=== PATIENT | female | born 1980 | race Hispanic/Latino ===

== ENCOUNTER 2016-08-29 17:49 | Emergency (ER) | payer OTHER ==
[~2016-08-29] VITALS: Ht 160 cm; Wt 89.8 kg
[~2016-08-29 17:49] MED LIST: A/B OTIC 54 MG/15 ML OTIC; AFRIN PUMPMIST15 ML NASB; AMOXICILLIN500 M3 PO; AMOXICILLIN875 M1 PO; AMOXIL 875 MG875 MG PO; AMOXIL500 MG PO; ANTIVERT 25MG #1 PAC PO; AUGMENTIN 875 M1 TAB PO; AUGMENTIN 875875 MG PO; BACTRIM DS TAB1 EACH PO; BUTRANS10 MCG/HR TOP; BUTRANS15 MCG/HR; CEFPODOXIME PR200 M2 PO; CETIRIZINE HCL10 M2 PO; CLONAZEPAM0.5 MG PO; COUMADIN 10 MG10 MG PO; COUMADIN 5 MG TA5 MG PO; COUMADIN 7.5 M7.5 MG PO; CYCLOBENZAPRINE10 M1 PO; CYCLOBENZAPRINE5 M1 PO; CYCLOBENZAPRINE5 M2 PO; CYMBALTA30 M1 PO; CYMBALTA60 MG PO; DULOXETINE HCL30 MG PO; DULOXETINE HCL60 MG PO; ELIQUIS2.5 M1; ELIQUIS5 MG PO; ENDOCET 325 MG-1 TA1 PO; ESCITALOPRAM20 MG PO; FERRALET 90 TA1 EACH PO; FLEXERIL10 MG PO; FLOMAX(MONOGRA0.4 MG PO; FLONASE120 SPRAY/ NAS; FLONASE120 SPRAY/ NASB; FUROSEMIDE20 M1 PO; GABAPENTIN100 M2 PO; IBUPROFEN800 M1 PO; JANUMET 1000 MG1 TAB PO; JANUVIA 50MG50 MG PO; JANUVIA100 M1 PO; JANUVIA25 M1 PO; KETOROLAC TROME10 M1 PO; LANTUS SOL100 UNIT/1 SC; LEVAQUIN500 MG PO; LEVAQUIN750 M1 PO; LEVAQUIN750 MG PO; LISINOPRIL10 M1 PO; LISINOPRIL5 M1 PO; LOMOTIL 0.025 M1 TAB PO; LORAZEPAM0.5 M1 PO; LOSARTAN POTAS100 MG PO; LOSARTAN POTASS50 MG PO; LOVENOX 10100 MG/1 M SC; LOVENOX100 MG/1 M SC; LOVENOX150 MG/1 M SC; MELOXICAM7.5 M1 PO; MELOXICAM7.5 MG PO; MONTELUKAST SOD10 M1 PO; NASONEX0.05 MG/Ac INH; NASONEX0.05 MG/Ac NAS; NASONEX17 GM NASB; NATURAL IRON65 MG PO; NEURONTIN100 MG PO; NEURONTIN300 M1 PO; NOVOLOG FL100 UNIT/1 SC; NYSTATIN AND TR1 CR1 TOP; OXYCODONE HCL5 M1 PO; OXYCODONE5 MG PO; OXYCONTIN10 M1 PO; PERCOCET 325 MG1 TA2 PO; PERCOCET 5-3251 EACH PO; PREDNISONE 20MG20 MG PO; PROAIR HFA0.09 MG/Ac INH; PROAIR HFA8.5 GM INH; PROTONIX 40MG T40 MG PO; RANITIDINE HYD150 MG PO; SERTRALINE HYD100 MG PO; SERTRALINE HYDR50 MG PO; SIMVASTATIN20 MG PO; SIMVASTATIN40 MG PO; SIMVASTATIN5 M2 PO; SYMBICORT 160/41 PUF INH; TESSALON PERLE100 MG PO; TOUJEO SOL300 UNIT/1 SC; TRAMADOL50 MG PO; TRAZODONE HCL100 M1 PO; TRAZODONE HCL150 M1 PO; TRAZODONE HCL50 M1 PO; TRAZODONE50 MG PO; TYLENOL #31 TAB PO; ULTRAM50 M1 PO; VICODIN 300 MG-1 TAB PO; VICODIN5-300 PO; VITAMIN D250000 UNIT PO; WARFARIN SODIUM5 MG PO; ZOFRAN ODT4 MG PO; ZOFRAN ODT4 MG SL; ZOFRAN4 M1 PO; ZOFRAN4 M1 SL; ZOFRAN4 MG PO; ZOLOFT 100 MG100 MG PO; ZOLPIDEM TARTRAT5 M1 PO; [UNRECOGNIZED DRUG - OTHER] PO
--- NOTE | 2016-08-29 20:42 | ED MVC/FALL/TRAUMA COMPLAINT ---
History of Present Illness General Chief Complaint: Fall Stated Complaint: FELL DOWN 15 STAIRS. LOW BACK PAIN Source: patient Exam Limitations: no limitations Vital Signs & Intake/Output Vital Signs & Intake/Output Vital Signs Date Time Temp Pulse Resp B/P Pulse O2 O2 Flow FiO2 Ox Delivery Rate 08/29 2207 96.8 78 18 128/90 100 Nasal 2.0L Cannula 08/29 2105 100 Nasal 2.0L Cannula 08/29 1754 97.0 97 18 139/92 97 Nasal 2.0L Cannula ED Intake and Output 08/30 0000 08/29 1200 Intake Total Output Total Balance Patient 198 lb Weight Allergies Coded Allergies: adhesive (Mild, RASH 02/12/16) latex (UNKNOWN 02/12/16) Reconcile Medications Albuterol Sulfate (Proair Hfa) 0.09 MG/Actuation LEOBARDO 2 PUFF INH PRN ASTHMA ( Reported) Duloxetine HCl 60 MG CAPSULE.DR 1 CAP PO DAILY MENTAL HEALTH (Reported) Enoxaparin Sodium (Lovenox) 150 MG/ML SYRINGE 150 MG SC DAILY BLOOD THINNER ( Reported) Gabapentin (Neurontin) 300 MG CAPSULE 1 CAP PO TID NEUROPATHY (Reported) Insulin Aspart, Recombinant (Novolog Flexpen) 100 UNIT/1 ML INSULN.PEN DIABETES (Reported) Insulin Glargine,Hum.rec.anlog (Toujeo Solostar) 300 UNIT/ML (1.5 ML) INSULN.PEN 40 UNITS SC QHS DM (Reported) Lisinopril 5 MG TABLET 1 TAB PO DAILY HTN (Reported) Simvastatin (Simvastatin*) 40 MG TABLET 1 TAB PO QPM HLP (Reported) Simvastatin (Simvastatin*) 5 MG TABLET 1 TAB PO DAILY CHOLESTEROL (Reported) Triage Note: PRESENTS TO ED FOR EVALUATION OF LOWER BACK PAIN S/P FALLING ON STAIRS. DENIED HITTIN HER HEAD OR LOC. SHE REPORTED THE HAVE "SLIPPED" Triage Nurses Notes Reviewed? yes : No Patient currently breastfeeds: No HPI: This patient is a 36-year-old female the past medical history including lupus who presented to the emergency department today for evaluation of lower back pain status post fall. The patient reported that she fell down approximately 15 stairs today. She reported that she slipped and slid down on her back. She denied hitting her head or any syncope. She denied any precipitating factors such as nausea, dizziness, lightheadedness, chest pain, difficulty breathing, or any other precipitating symptoms. The patient reported that she is having 8 out of 10 lower back pain primarily in the center of her lower back. She reported that it seems to shoot down to both of her thighs. The pain is a constant and worse with movement. No palliative factors. She did not take any medication for the pain prior to arrival in the emergency department. (ABDIAZIZ FONG PA-C) Past History Travel History [facility]ed [facility] past 21 day No Medical History Any Pertinent Medical History? see below for history Neurological: migraine EENT: allergies, sinusitis Cardiovascular: hypertension, hyperlipidemia Respiratory: asthma, pulmonary embolism (recurrent. 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 FATHER (hypertension, diabetes mellitus). Hx Contributory? No (ABDIAZIZ FONG PA-C) Review of Systems Review of Systems Constitutional: Reports: no symptoms. Eyes: Reports: no symptoms. Ears, Nose, Throat, Mouth: Reports: no symptoms. Respiratory: Reports: no symptoms. Cardiovascular: Reports: no symptoms. Gastrointestinal/Abdominal: Reports: no symptoms. Genitourinary: Reports: no symptoms. Musculoskeletal: Reports: see HPI. Skin: Reports: no symptoms. Neurological/Psychological: Reports: no symptoms. All Other Systems: Reviewed and Negative (ABDIAZIZ FONG PA-C) Physical Exam Physical Exam General Appearance: well developed/nourished, no apparent distress, alert, awake Comments: Well-developed well-nourished person in no acute distress HEENT: Normal EENT exam, head normocephalic/atraumatic, no tenderness to palpation of scalp, no bony deformity/step-off of the skull PERRLA bilaterally Neck: Supple and no midline tenderness Back: Antalgic gait. Tenderness to palpation at the midline of the lumbar spine. Bilateral lumbar paraspinal musculature tenderness to palpation with muscular spasm noted. Negative straight leg raise bilaterally Respiratory: No respiratory distress. Speaking in full sentences Extremity: Normal and equal pulses. Neuro: Alert oriented x3, cranial nerves II through XII grossly intact. Skin: No appreciable rash on exposed skin, skin is warm and dry. Psych: Mood and affect is normal Core Measures ACS in differential dx? No Severe Sepsis Present: No Septic Shock Present: No (HETAL TAYLOR,ABDIAZIZ) Progress Differential Diagnosis: aoritic dissection, abd injury, C/T/L spine injury, ext injury, ICH, pelvis injury, pnemothorax, spinal cord injury Plan of Care: Orders Procedure Date/time Status URINE 08/29 2030 Complete Laboratory Tests 08/29/162129: Urine Test NEGATIVE Diagnostic Imaging: Viewed by Me: CT Scan. Discussed w/RAD: CT Scan. Radiology Impression: PATIENT: JAIMIE CHEN PRESENT AGE: 36 PATIENT ACCOUNT NO: [id number] : 81 LOCATION: [facility] ORDERING PHYSICIAN: ABDIAZIZ FONG PA-C SERVICE DATE: 08/29/16 EXAM TYPE: CAT - CT LUMB SPINE WO IV CONTRAST EXAMINATION: CT LUMBAR SPINE WITHOUT CONTRAST CLINICAL INFORMATION: Fall down 15 stairs. Evaluate for injury. COMPARISON: Lumbar spine radiographs 05/03/2016. TECHNIQUE: Helical non-contrast CT images were obtained through the lumbar spine and 1.25 and 2.5 mm axial reconstructions were reviewed along with sagittal and coronal MPRs. DLP: 971.11 mGy-cm FINDINGS: There is anatomic alignment and position of the vertebral bodies and posterior elements of the lumbar spine. Vertebral body heights are preserved. There is no acute fracture. Intervertebral disc spaces are maintained at all levels. Grossly there is no evidence of canal or neuroforaminal compromise. Limited visualization of the retroperitoneal structures demonstrates 2 tandemly placed inferior vena cava filters. There are numerous nonobstructive calculi within the calyces of the right kidney the largest of which measures approximately 0.4 cm in diameter. No evidence of hydroureteronephrosis. Psoas and paraspinal muscle groups are symmetric. IMPRESSION: Unremarkable lumbar spine CT scan with no evidence of acute fracture or subluxation. There are 2 tandemly placed filters within the inferior vena cava and a few nonobstructive calculi within the calyces of the right kidney. DICTATED BY: SPEEDY ROMERO MD DATE/TIME DICTATED:08/29/162143 INFORMATION SECURITY:BRAIN DATE/TIME TRANSCRIBED:08/29/162143 CONFIDENTIAL, DO NOT COPY WITHOUT APPROPRIATE AUTHORIZATION. <Electronically signed in Other Vendor System> SIGNED BY: SPEEDY ROMERO MD 08/29/162152 (ABDIAZIZ FONG PA-C) Departure Departure Disposition: HOME OR SELF CARE Condition: Stable Clinical Impression Primary Impression: Fall Qualifiers: Encounter type: initial encounter Qualified Code: W19.XXXA - Unspecified fall, initial encounter Referrals: EMETERIO JEFFRIES (PCP/Family) Additional Instructions: Take medication as prescribed. Please follow-up with your primary care physician. Gentle stretching. Rest. Apply ice or heat the affected area. Return for any worsening symptoms or concerns. Departure Forms: Customer Survey General Discharge Information (ABDIAZIZ FONG PA-C) PA/TRAFFIC CONTROL SUPERVISOR Co-Sign Statement Statement: ED Attending supervision documentation- [] I saw and evaluated the patient. I have also reviewed all the pertinent lab results and diagnostic results. I agree with the findings and the plan of care as documented in the PA's/TRAFFIC CONTROL SUPERVISOR's documentation. [X] I have reviewed the ED Record and agree with the PA's/TRAFFIC CONTROL SUPERVISOR's documentation. [] Additions or exceptions (if any) to the PAs/TRAFFIC CONTROL SUPERVISOR's note and plan are summarized below: [] (JESU WALLER,LESVAI Roland) physician. Gentle stretching. Rest. Apply ice or heat the affected area. Return for any worsening symptoms or concerns. Departure Forms: Customer Survey General Discharge Information Prescriptions: Current Visit Scripts Cyclobenzaprine HCl 1 TAB PO TIDPRN PRN MUSCLE SPAMS #12 TAB Naproxen (Naprosyn) 1 TAB PO BID PRN PAIN AND INFLAMMATION #20 TAB (ABDIAZIZ FONG PA-C) PA/TRAFFIC CONTROL SUPERVISOR Co-Sign Statement Statement: ED Attending supervision documentation- [] I saw and evaluated the patient. I have also reviewed all the pertinent lab results and diagnostic results. I agree with the findings and the plan of care as documented in the PA's/TRAFFIC CONTROL SUPERVISOR's documentation. [X] I have reviewed the ED Record and agree with the PA's/TRAFFIC CONTROL SUPERVISOR's documentation. [] Additions or exceptions (if any) to the PAs/TRAFFIC CONTROL SUPERVISOR's note and plan are summarized below: [] (JESU WALLER,LESVIA Roland)
--- NOTE | 2016-08-29 21:53 | CT SCAN REPORT ---
EXAMINATION: CT LUMBAR SPINE WITHOUT CONTRAST CLINICAL INFORMATION: Fall down 15 stairs. Evaluate for injury. COMPARISON: Lumbar spine radiographs 05/03/2016. TECHNIQUE: Helical non-contrast CT images were obtained through the lumbar spine and 1.25 and 2.5 mm axial reconstructions were reviewed along with sagittal and coronal MPRs. DLP: 971.11 mGy-cm FINDINGS: There is anatomic alignment and position of the vertebral bodies and posterior elements of the lumbar spine. Vertebral body heights are preserved. There is no acute fracture. Intervertebral disc spaces are maintained at all levels. Grossly there is no evidence of canal or neuroforaminal compromise. Limited visualization of the retroperitoneal structures demonstrates 2 tandemly placed inferior vena cava filters. There are numerous nonobstructive calculi within the calyces of the right kidney the largest of which measures approximately 0.4 cm in diameter. No evidence of hydroureteronephrosis. Psoas and paraspinal muscle groups are symmetric. IMPRESSION: Unremarkable lumbar spine CT scan with no evidence of acute fracture or subluxation. There are 2 tandemly placed filters within the inferior vena cava and a few nonobstructive calculi within the calyces of the right kidney.
[2016-08-29] MEDS ORDERED: CYCLOBENZAPRINE5 M2 PO (22:01)
[2016-08-29] MEDS ORDERED: NAPROSYN500 M1 PO (22:01)
[2016-08-29 22:07] VITALS: BP 128/90
== END 2016-08-29 22:08 ==
LOC: ERH 17:49
DX: M54.5 Low back pain (principal); W10.9XXA Fall (on) (from) unspecified stairs and steps, initial encounter
CPT/HCPCS: 81025; 96372; J1885

== ENCOUNTER 2016-09-02 01:31 | Inpatient (IN) | payer OTHER ==
[~2016-09-02] VITALS: Ht 160 cm; Wt 89.8 kg
[~2016-09-02 01:31] MED LIST changes: +NAPROSYN500 M1 PO
--- NOTE | 2016-09-02 01:43 | NUR ---
PT BIBA FROM HOME C/O LEFT FLANK PAIN THAT RADIATES TO LEFT LEG AND CHILLS SINCE YESTERDAY. PT DENIES URINARY SYMPTOMS, FEVER, CP, SOB.
--- NOTE | 2016-09-02 02:00 | NUR ---
LEFT UPPER LEG MORE SWOLLEN THEN RIGHT. LEG COOL TO TOUCH. POSITIVE DP PULSE
[2016-09-02 02:52] LABS: ABSOLUTE BASOPHIL COUNT 0.1 /CUMM (0.0-0.2); ABSOLUTE EOSINOPHIL COUNT 0.1 /CUMM (0.0-0.7); ABSOLUTE GRANULOCYTE CT 16.2 /CUMM (1.4-6.5); ABSOLUTE LYMPH COUNT 3.2 /CUMM (1.2-3.4); ABSOLUTE MONOCYTE COUNT 1.3 /CUMM (0.10-0.60); BASOPHIL % 0.3 % (0.0-2.0); EOSINOPHIL % 0.5 % (0-5); GRANULOCYTE % 77.8 % (42.2-75.2); HEMATOCRIT 31.2 % (37-47); MEAN CORPUSCULAR HGB 26.2 PG (27.0-31.0); MEAN CORPUSCULAR HGB CONC 31.3 G/DL (33.0-37.0); MEAN CORPUSCULAR VOLUME 83.9 FL (81.0-99.0); PLATELET COUNT 285 /CUMM (130-400); RBC DISTRIBUTION WIDTH 16.9 % (11.5-14.5); RED BLOOD CELL CT 3.72 /CUMM (4.20-5.40); WHITE BLOOD CELL COUNT 20.8 /CUMM (4.8-10.8)
--- NOTE | 2016-09-02 03:03 | NUR ---
PT C/O 05/02 PAIN. PT MEDICATED WITH MORPHINE PER ORDER
[2016-09-02 03:13] LABS: PT 11.5 SEC (9.4-12.5)
--- NOTE | 2016-09-02 03:13 | ED GENERAL ADULT ---
History of Present Illness General Chief Complaint: General Adult Stated Complaint: BIBA HYPERGLYCEMIA Source: patient, family, old records, EMS, Epic Exam Limitations: no limitations Vital Signs & Intake/Output Vital Signs & Intake/Output Vital Signs Date Time Temp Pulse Resp B/P Pulse O2 O2 Flow FiO2 Ox Delivery Rate 09/02 0324 97.6 90 18 124/70 98 Nasal Cannula 09/02 0139 96.3 75 18 115/63 97 Nasal 2.0L Cannula Allergies Coded Allergies: adhesive (Mild, RASH 02/12/16) latex (UNKNOWN 02/12/16) Reconcile Medications Albuterol Sulfate (Proair Hfa) 0.09 MG/Actuation LEOBARDO 2 PUFF INH PRN ASTHMA ( Reported) Budesonide/Formoterol Fumara (Symbicort 160-4.5 Mcg Inhaler) 160 MCG/4.5 MCG PUF 2 PUF INH BID ASTHMA (Reported) Cetirizine HCl 10 MG TABLET 1 TAB PO DAILY ALLERGIES (Reported) Cyclobenzaprine HCl 5 MG TABLET 1 TAB PO TIDPRN PRN MUSCLE SPAMS Duloxetine HCl 60 MG CAPSULE.DR 1 CAP PO DAILY MENTAL HEALTH (Reported) Duloxetine HCl 30 MG CAPSULE.DR 1 CAP PO DAILY MENTAL HEALTH (Reported) Enoxaparin Sodium (Lovenox) 150 MG/ML SYRINGE 150 MG SC DAILY BLOOD THINNER ( Reported) Ergocalciferol (Vitamin D2) (Vitamin D2) 50,000 UNIT CAPSULE 1 CAP PO QMON SUPPLEMENT (Reported) Furosemide 20 MG TABLET 1 TAB PO DAILY PRN DIURETIC (Reported) Gabapentin (Neurontin) 300 MG CAPSULE 1 CAP PO TID NEUROPATHY (Reported) Insulin Aspart, Recombinant (Novolog Flexpen) 100 UNIT/1 ML INSULN.PEN DIABETES (Reported) Insulin Glargine,Hum.rec.anlog (Toujeo Solostar) 300 UNIT/ML (1.5 ML) INSULN.PEN 40 UNITS SC QHS DM (Reported) Iron Carb,Gl/FA/B12/C/Docusate (Ferralet 90 Tablet) 1 EACH TABLET 1 TAB PO BID SUPPLEMENT (Reported) Lisinopril 5 MG TABLET 1 TAB PO DAILY HTN (Reported) Lorazepam 0.5 MG TABLET 1 TAB PO BID PRN ANXIETY (Reported) Meloxicam 7.5 MG TABLET 1 TAB PO DAILY PAIN/INFLAMMATION (Reported) Montelukast Sodium 10 MG TABLET 1 TAB PO QHS ALLERGIES (Reported) Naproxen (Naprosyn) 500 MG TABLET 1 TAB PO BID PRN PAIN AND INFLAMMATION Oxycodone HCl 5 MG TABLET 1 TAB PO TID PRN SEVERE PAIN (Reported) Simvastatin (Simvastatin*) 5 MG TABLET 1 TAB PO DAILY CHOLESTEROL (Reported) Sitagliptin Phosphate (Januvia) 100 MG TABLET 1 TAB PO DAILY DIABETES ( Reported) Tramadol HCl (Ultram) 50 MG TABLET 1-2 TAB PO Q6PRN PRN severe pain Trazodone HCl 50 MG TABLET 3 TAB PO QPM PRN SLEEP (Reported) Core Measure Meds [facility]ospital [facility] Triage Note: PT BIBA FROM HOME C/O LEFT FLANK PAIN THAT RADIATES TO LEFT LEG AND CHILLS SINCE YESTERDAY. PT DENIES URINARY SYMPTOMS, FEVER, CP, SOB. Triage Nurses Notes Reviewed? yes Onset: several days Duration: day(s):, constant, continues in ED, getting worse Timing: recent history Injury Environment: home Severity: severe Modifying Factors: Worsens With: movement. Associated Symptoms: back pain LMP (ages 10-50): unknown : No Patient currently breastfeeds: No HPI: 2 months prior to admission patient had recurrent pulmonary embolism. 4 days prior to admission patient slipped and fell down the stairs seen in the emergency department CT demonstrated no apparent injury. She then developed increasing swelling and pain of her left lower extremity. She also notes her blood sugars been running high. She denies fever chills nausea vomiting diarrhea abdominal pain chest pain shortness of breath headache dysuria bleeding. Past History Travel History Traveled to [place] past 21 day No Medical History Any Pertinent Medical History? see below for history Neurological: migraine EENT: allergies, sinusitis Cardiovascular: hypertension, hyperlipidemia Respiratory: asthma, pulmonary embolism (recurrent. 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 FATHER (hypertension, diabetes mellitus). Hx Contributory? No Review of Systems Review of Systems Constitutional: Reports: see HPI, weakness. EENTM: Reports: no symptoms. Respiratory: Reports: no symptoms. Cardiovascular: Reports: no symptoms. GI: Reports: no symptoms. Genitourinary: Reports: no symptoms. Musculoskeletal: Reports: see HPI, joint pain, joint swelling. Skin: Reports: no symptoms. Neurological/Psychological: Reports: no symptoms. Hematologic/Endocrine: Reports: no symptoms. Immunologic/Allergic: Reports: no symptoms. All Other Systems: Reviewed and Negative Physical Exam Physical Exam General Appearance: well developed/nourished, alert, awake, anxious Head: atraumatic, normal appearance Eyes: Bilateral: normal appearance, PERRL, EOMI. Ears, Nose, Throat: normal pharynx, normal ENT inspection Neck: normal inspection, supple, full range of motion Respiratory: normal breath sounds, chest non-tender, no respiratory distress, quiet respiration, lungs clear Cardiovascular: regular rate/rhythm, normal peripheral pulses, norml femoral pulses equa Peripheral Pulses: 4+ carotid (R), 4+ carotid (L), 1+ dorsalis pedis (R), 1+ dorsalis pedis (L) Gastrointestinal: normal bowel sounds, soft, non-tender, no organomegaly Back: normal inspection, normal range of motion Extremities: calf tenderness, limited range of motion, tenderness, left lower extremity with pallor and taut skin Neurologic/Psych: no motor/sensory deficits, awake, alert, oriented x 3, normal mood/affect, 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 Skin: intact, pallor (LLE) Lymphatic: no anterior cervical candace Core Measures ACS in differential dx? No CVA/TIA Diagnosis: No Severe Sepsis Present: No Septic Shock Present: No Progress Differential Diagnoses I considered the following diagnoses in my evaluation of the patient: DVT hyperglycemia hyperosmolar state Plan of Care: Orders Procedure Date/time Status Consistent Carbohydrate 2 09/02 B Active CBC WITHOUT DIFFERENTIAL 09/02 599 Active BASIC ELECTROLYTES PLUS BUN&CR 09/[address] LOWER EXT W IV CONTRAST 02/10 0425 Active Patient Data 09/02 410 Active Pathway - chart 09/02 357 Active House Staff 09/02 357 Active Code Status 09/02 357 Active Patient Data 09/02 333 Active EKG 09/02 331 Active Patient Data 09/02 327 Active Patient Data 09/02 324 Active Add-on Test (ER Only) 09/02 323 Active PARTIAL THROMBOPLASTIN TIME 09/02 227 Complete OXYGEN SETUP (GEN) 09/02 220 Active Saline Lock 09/02 220 Active Admit to inpatient 09/02 220 Active Vital Signs 09/02 220 Active Activity/Ambulation 09/02 220 Active Code Status 09/02 220 Complete PROTHROMBIN TIME 09/02 020 Complete MAGNESIUM 09/02 020 Complete D-DIMER 09/02 208 Complete COMPREHENSIVE METABOLIC PANEL 09/02 208 Complete CBC WITHOUT DIFFERENTIAL 09/02 208 Complete ACETONE 09/02 208 Complete US-EXT BILAT VENOUS DOPPLER 09/02 UNK Active VTE Mechanical Prophylaxis 09/02 UNK Active Current Medications Sig/Omero Start time Last Medication Dose Stop Time Status Admin Atorvastatin Calcium 5 MG 1700 09/02 1700 UNVr (Lipitor) Budesonide/ 2 PUF BID 09/02 1000 UNVr Formoterol Fumarate (Symbicort) Gabapentin 300 MG TID 09/02 1000 UNVr (Neurontin) Lisinopril 5 MG DAILY 09/02 1000 UNVr (Prinivil) Albuterol Sulfate 2 PUF Q4 PRN 09/02 414 UNVr (Ventolin) Cyclobenzaprine HCl 5 MG TIDPRN PRN 09/02 414 UNVr (Flexeril 5MG Tab) Furosemide 20 MG DAILY PRN 09/02 414 UNVr (Lasix) Lorazepam 0.5 MG BID PRN 09/02 414 UNVr (Ativan) 09/09 413 Montelukast Sodium 10 MG .[QHS] 09/02 414 UNVr (Singulair) Non-Formulary 0 SEE ADMIN CRITERIA 09/02 414 UNVr Medication (NON FORMULARY) Oxycodone HCl 5 MG TID PRN 09/02 414 UNVr (Roxicodone) Tramadol HCl See Dose Q6PRN PRN 09/02 414 UNVr (Ultram) Insts (1) Trazodone HCl 150 MG QPM PRN 09/02 414 UNVr (Desyrel) Dose Instructions: (1)Tramadol HCl (Ultram): 1-2 TAB Laboratory Tests 09/02/16 0324: APTT Cancelled 09/02/16 0228: Anion Gap 13, Estimated GFR > 60, BUN/Creatinine Ratio 22.5, Glucose 528 *H, Calcium 8.8, Magnesium 1.1 L, Total Bilirubin 0.5, AST 12 L, ALT 23, Alkaline Phosphatase 123, Total Protein 6.5, Albumin 3.4 L, Globulin 3.1, Albumin/ Globulin Ratio 1.1, PT 11.5, INR 1.10, APTT 23 L, D-Dimer 3234 H, CBC w Diff MAN DIFF ORDERED, RBC 3.72 L, MCV 83.9, MCH 26.2 L, RDW 16.9 H, MPV 9.0, Gran % 77.8 H, Lymphocytes % 15.2 L, Monocytes % 6.2, Eosinophils % 0.5, Basophils % 0.3, Absolute Granulocytes 16.2 H, Absolute Lymphocytes 3.2, Absolute Monocytes 1.3 H, Absolute Eosinophils 0.1, Absolute Basophils 0.1, Platelet Estimate ADEQUATE, Hypochromic-Microcytic 1+, Poikilocytosis 1+, Target Cells 1+ , Stomatocytes RARE, Maud Cells 1+, PUBS MCHC 31.3 L, Acetone Level POSITIVE AT 1:2 DIL Initial ED EKG: normal axis, normal intervals, normal p-waves, normal QRS complex, normal sinus rhythm, no ST T wave changes Prior EKG: unchanged Rhythm Strip: normal sinus rhythm Departure Departure Disposition: STILL A PATIENT Condition: Stable Clinical Impression Primary Impression: DVT of leg (deep venous thrombosis) Qualifiers: Affected thrombotic vein of extremity: unspecified vein of extremity Laterality: left Chronicity: acute Qualified Code: I82.402 - Acute embolism and thrombosis of unspecified deep veins of left lower extremity Secondary Impressions: Hyperglycemia Leukocytosis, unspecified Qualifiers: Leukocytosis type: unspecified Qualified Code: D72.829 - Elevated white blood cell count, unspecified Referrals: BARRY CARIAS,EMETERIO (PCP/Family) Departure Forms: Customer Survey General Discharge Information Admission Note Spoke With: NELSON FRANCISCO MD Documentation of Exam: Documentation of any treatments & extenuating circumstances including Concerns Regarding Discharge (functional status, medication knowledge or non-compliance, living conditions, etc.) that warrant an admission rather than observation: Ultrasound left lower extremity blood sugar control IV analgesia IV heparin medication adjustment rheumatology and hematology evaluations continuing care discharge planning Critical Care Note Critical Care Note Critical Care Time: 30-74 min (40)
--- NOTE | 2016-09-02 03:18 | NUR ---
CRITICAL TEST RESULTS [id number] JAIMIE CHEN 36 F TESTS AND RESULTS: GLUCOSE 528 Results received and read back by: SYLVIE RODRIGUEZ Results received date and time: 09/02/16 0318 The following provider was notified of the results, and read the results back: Notified date and time: 09/02/16 at 0310
--- NOTE | 2016-09-02 03:33 | History & Physical ---
MIRYAM WALLER,[facility] 09/02/16 0332: General Information and HPI MD Statement: I have seen and personally examined JAIMIE JAIMES and documented this H&P. The patient is a 36 year old F who presented with a patient stated chief complaint of Left Flank Pain. Source of Information: patient, family, old records Exam Limitations: no limitations History of Present Illness: Ms. 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 The patient states she was in her normal state of health until 08/29/2016 when after waking up in the a.m. she fell after missing a step. The patient states that she landed on her left side. She denies any loss of consciousness and states this was merely a mechanical fall. Since the 08/29, the patient has had increasing worsening pain in the left lower extremity. She has had a hard time with her ADLs. She has taken Flexeril for symptomatic relief. Linear of admission the patient rates the pain as a 10 out of 10 in severity. Located on the left flank and all through the left lower extremity, down to her left knee. Pain is described as a sharp pain. Worse with ambulation and movement. She denies any fever, chills, nausea, vomiting. She endorses subjective chills. Allergies/Medications Allergies: Coded Allergies: adhesive (Mild, RASH 02/12/16) latex (UNKNOWN 02/12/16) Compliance With Home Meds: POOR Past History Travel History Traveled to [place] past 21 day No Medical History Neurological: migraine EENT: allergies, sinusitis Cardiovascular: hypertension, hyperlipidemia Respiratory: asthma, pulmonary embolism (recurrent. 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 FATHER (hypertension, diabetes mellitus). Psychosocial History Where do you live? Home Who Do You Live With? spouse, child, Male PArtner Services at Home: None Primary Language: Turkish, Italian Smoking Status: Never Smoked ETOH Use: denies use Illicit Drug Use: denies illicit drug use Functional Ability ADLs Independent: dressing, eating, toileting, bathing. Ambulation: independent IADLs Independent: shopping, housework, finances, food prep, telephone, transportation , medication admin. Employment History Employment Unemployed Review of Systems Review of Systems Constitutional: Reports: chills, malaise. Denies: diaphoresis, fever. Cardiovascular: Denies: chest pain, edema, orthopena, palpitations, peripheral edema. Respiratory: Reports: short of breath. Denies: cough, hemoptysis, orthopnea, sputum production, stridor. GI: Denies: abdominal pain, bloating, constipation, diarrhea, distention, bowel incontinence, nausea, vomiting. Genitourinary: Denies: discharge, dysuria, frequency, hematuria. Musculoskeletal: Reports: back pain, muscle pain. Denies: joint pain. Exam & Diagnostic Data Last 24 Hrs of Vital Signs/I&O Vital Signs Date Time Temp Pulse Resp B/P Pulse O2 O2 Flow FiO2 Ox Delivery Rate 09/02 0324 97.6 90 18 124/70 98 Nasal Cannula 09/02 0139 96.3 75 18 115/63 97 Nasal 2.0L Cannula Intake & Output 09/02 0800 09/02 0000 09/01 1600 Intake Total 1000 Output Total Balance 1000 Intake, IV 1000 Patient 89.811 kg Weight Physical Exam General Appearance Alert, Oriented X3, Cooperative, Mild Distress HEENT Mucous Membr. moist/pink Lymphatic Cervical nl Cardiovascular Normal S1, Normal S2, No Murmurs Lungs Clear to Auscultation Abdomen Normal Bowel Sounds, Soft, No Tenderness, Distended Neurological Normal Speech, Normal Tone, Sensation Intact Extremities No Cyanosis, Normal Pulses, Non pitting Edema LLE Vascular Normal Pulses Last 24 Hrs of Labs/Manny: Laboratory Tests 09/02/16 0324: APTT Cancelled 09/02/16 0228: Anion Gap 13, Estimated GFR > 60, BUN/Creatinine Ratio 22.5, Glucose 528 *H, Calcium 8.8, Magnesium 1.1 L, Total Bilirubin 0.5, AST 12 L, ALT 23, Alkaline Phosphatase 123, Total Protein 6.5, Albumin 3.4 L, Globulin 3.1, Albumin/ Globulin Ratio 1.1, PT 11.5, INR 1.10, APTT 23 L, D-Dimer 3234 H, CBC w Diff MAN DIFF ORDERED, RBC 3.72 L, MCV 83.9, MCH 26.2 L, RDW 16.9 H, MPV 9.0, Gran % 77.8 H, Lymphocytes % 15.2 L, Monocytes % 6.2, Eosinophils % 0.5, Basophils % 0.3, Absolute Granulocytes 16.2 H, Absolute Lymphocytes 3.2, Absolute Monocytes 1.3 H, Absolute Eosinophils 0.1, Absolute Basophils 0.1, Platelet Estimate ADEQUATE, Hypochromic-Microcytic 1+, Poikilocytosis 1+, Target Cells 1+ , Stomatocytes RARE, Cain Cells 1+, PUBS MCHC 31.3 L, Acetone Level POSITIVE AT 1:2 DIL Diagnostic Data EKG Results Sinus Rhythm Rate [address] Changes Assessment/Plan Assessment: Ms. Jaimes is 36-year-old female with past medical history significant for diabetes, recurrent pulmonary embolus S/P thrombectomy 2008 and IVF filter 2015 with last admission PE February 2016, antiphospholipid antibody syndrome/lupus anticoagulants (on lovenox), asthma on home oxygen 2 L, anemia, hypertension, hyperlipidemia, chronic back pain , partial pancreatectomy and splenectomy ( benign tumor of pancreas), depression and GERD, presented with chief complain left flank and lower extremty pain. #Worsening left flank and left lower extremity pain. ?DVT, Bilateral venous Doppler to rule out a DVT as the source of this pain. Patient was started on IV heparin and will need to be continued on IV heparin for anti coagulation. Per PTT Protocol. Recent CT did suggest ?compartment syndrome. A stat call back was requested from Dr Smith. She did not elicit any urinary symptoms and did not exhibit any CVA tenderness, low suspicion for nephrolithiasis. Vitals every shift. CBC in a.m. #Hyperglycemia The patient did have an elevated glucose level of 528 upon admission. Subsequently after aggressive hydration the patient's sugar had come down to 376 after 10 units of insulin. Patient did not have an anion gap although breath was positive for acetone. We will continue to monitor the patient's blood sugar especially as we are aggressively hydrating her. We will obtain a endocrinology consult in the a.m. Consider repeat hemoglobin A1c for long-term glycemic control. Begin the patient on sliding scale once the patient is able to tolerate by mouth meals. #Chronic back pain The patient does have a history of chronic back pain. She was given morphine in the emergency department. Continue oxycodone 5 mg 3 times a day when necessary Continue cyclobenzaprine 5 tid Continue tramadol 50 mg (1-2 tabs) po q6 prn #Acute on Chronic anemia: w/o any obvious source of bleeding. Check CBC in the am and watch for drop Guiac all the stools. Iron Studies, Vitamin B12, Folic Acid. Continue IV hydration # Hypertension Continue lisinopril 5mg. Continue lasix 20 Daily. BEP Daily. Ins and Outs. Daily Weights. #History Depression and Anxiety Continue duloxetine 90 mg and lorazepam 0.5 mg bid prn # History of sleep disturbance. Hold medications any sedating medications for now. Once Patient is more stable, can begin, trazodone 150 mg QPM. #DVT prophylaxis IV heparin 25,000 units. #Code Full Code As Ranked By This Provider Problem List: 1. Low back pain 2. Exacerbation of chronic back pain 3. Chronic back pain 4. Hyperlipidemia 5. Diabetes Core Measures/Miscellaneous Acute Coronary Syndrome ACS Diagnosis: No Cerebrovascular Accident CVA/TIA Diagnosis: No Congestive Heart Failure CHF Diagnosis: No Venous Thromboembolism VTE Risk Factors: Acute medical illness VTE Prophylaxis Ordered Inpt: Pharm- Heparin No [facility] VTE prophylaxis d/t: LE Edema No VTE Pharm Prophylaxis d/t: No contraindications VTE Diagnosis: Yes VTE Type: Pulmonary Embolism Severe Sepsis Severe Sepsis Present: No Septic Shock Septic Shock Present: No Miscellaneous Documentation Attending Case Discussed With: Dr Rivera Primary Care Physician: EMETERIO JEFFRIES Patient sees these Specialists Dr Kramer Level of Patient Care: Telemetry MARYAM WALLER, [facility] 09/02/16 0441: Attending MD Review Statement Attending Statement Attending Statement: examined this patient, discuss w/resident/PA/RETAIL TEAM MEMBER, agreed w/resident/PA/RETAIL TEAM MEMBER Attending Assessment/Plan: 36 yo F with h/o hypercoagulability of uncertain etiology (?lupus anticoagulant) , pancreatic tumor of unspecified malignancy s/p partial pancreactomy (2008), massive PE s/p thrombectomy (2005), with recurrent PE's s/p IVC filter (Feb 2016 ), h/o coumadin and eliquis failure now on Lovenox, HTN, asthma on chronic 2L O2 , T2DM, OHS on CPAP, is here with severe LLE swelling/pain s/p mechanical fall down the stairs on Aug 29. She was seen in ER on Aug 29 after the fall for low back pain, CT lumbar spine was neg so she was discharged on flexeril and naproxen. She has had tremendous pain limiting her mobility over past few days. She denies dyspnea, chest pain, palpitations or lightheadedness or LOC. Of note, patient was last admitted to [place] (06/29-07/01) for CAP/ gastroenteritis. She was then seen in [place] ER on 07/07 for chest pain, CTA showed increasing PE burden, IV heparin was initiated and she was transferred to [facility]. TTE showed elevated RVSP 70, EKOS catheter was placed 07/08 and removed with no change in clot burden. She underwent 2nd IVC filter on 07/09 as prior one was clotted. On review of [place] records, her thrombophilia work up including antithrombin 3, anticardiolipin antibody, protein S, protein C, SKYLA, lupus anticoagulant, factor V Leiden and prothrombin gene mutation were grossly negative (04/2015). It is unclear if she has anticoagulation failure, as there may be a component of non-adherence. Cardiac surgery evaluated patient during [place] stay, with a plan for right pulm artery trombectomy after a trial of higher dose lovenox (150 mg) to have a viable post op AC plan. VSS. Exam: AAO, in mild distress due to pain, Chest b/l clear, Heart S1S2, no murmurs+, Abd soft, NT, LLE: swollen from groin to ankle, appears tense, peripheral pulse well felt. Labs: WBC 20.8, H/H 9.8/31.2 (11.6/36.1 07/15/2016 ), INR 1.10, D-dimer 3234, Na 131, bicarb 20 AG 13, creat 0.4, glucose 528, Mag 1.1, Acetone positive. EKG: SR, Qtc 475. Echo (07/12/16): EF 61%, RVSP 52%, dilated right ventricle, flattened septum in systole consistent with RVP overload. 1. LLE swelling s/p recent fall, with possible new LLE DVT. However, cannot rule out compartment syndrome. Will get CT LLE with IV contrast, check CK. IV heparin initiated per PTT protocol. Guaiac all stools, monitor H and H. NPO for now. LE doppler in AM. Based on CT results will consider Vascular or Surgery consult. Continue aspirin. Pain management with morphine. 2. Recent acute on chronic PE, s/p EKOS with mild decrease in RVSP on Echo, but no change in clot burden. Continue O2 supplementation. Tele monitoring for 24 hours, patient reported clot in her right heart (?) that needs removal, but on review of her [place] records - she has CTPH and needs right pulm artery thrombectomy. Serial EKG and troponin to rule out ACS. No need for repeat Echo. Cardio and Pulm consult in AM. Patient had a repeat CTA chest (Aug 17), results of which are pending with eventual Pulm and CT surgery follow up. Please obtain records from [facility]. Replete electrolytes to keep Mag > 2.0 and K > 4.0. 3. Uncontrolled Type 2 diabetes. Glucose was 528 with slightly low bicarb, normal AG and positive acetone (1:2), insulin 10 units given with repeat accuchek of 376. Will continue IV fluids, insulin NPO SS, lantus (glargine 48 units QHS, will give 24 units at bedtime when NPO), check HbA1c and obtain Endo consult. 4. Acute anemia in this patient with h/o iron deficiency anemia. Guaiac all stools, check iron studies, B12, folic acid, TSH and free T4. Monitor H and H while on heparin. 5. Leukocytosis possible chronic and reactive. Obtain CXR and urinalysis. Monitor off antibiotics for now. GI ppx IV PPI. DVT ppx IV heparin. Full code. DEMOND CHAN 09/02/16 9801: General Information and HPI Allergies/Medications Home Med list Albuterol Sulfate (Proair Hfa) 0.09 MG/Actuation LEOBARDO 2 PUFF INH PRN ASTHMA ( Reported) Duloxetine HCl 60 MG CAPSULE.DR 1 CAP PO DAILY MENTAL HEALTH (Reported) Enoxaparin Sodium (Lovenox) 150 MG/ML SYRINGE 150 MG SC DAILY BLOOD THINNER ( Reported) Gabapentin (Neurontin) 300 MG CAPSULE 1 CAP PO TID NEUROPATHY (Reported) Insulin Aspart, Recombinant (Novolog Flexpen) 100 UNIT/1 ML INSULN.PEN DIABETES (Reported) Insulin Glargine,Hum.rec.anlog (Toujeo Solostar) 300 UNIT/ML (1.5 ML) INSULN.PEN 40 UNITS SC QHS DM (Reported) Lisinopril 5 MG TABLET 1 TAB PO DAILY HTN (Reported) Simvastatin (Simvastatin*) 40 MG TABLET 1 TAB PO QPM HLP (Reported) Simvastatin (Simvastatin*) 5 MG TABLET 1 TAB PO DAILY CHOLESTEROL (Reported) Core Measures/Miscellaneous Venous Thromboembolism VTE Confirmed by (Test): NONE Resident Review Statement Resident Statement: examined this patient, discussed with international project engineer, agreed with international project engineer, discussed with family, reviewed EMR data (avail), discussed with nursing , discussed with case mgmt, reviewed images, amended to note Other Findings: 36-year-old woman presented in the ED complaining of left lower extremity swelling. On 08/29/2016 patient had a mechanical fall. By that time CT scan of the lower back was obtained which showed no complications. Yesterday evening patient noticed swelling of her left leg that increased crit over time. Patient expresses intense, constant pressure type pain with severity of 8-9 out of 10 on pain scale. The pain has increased and patient decided to call the ambulance and come to the emergency room. She has a significant past medical history for recurrent pulmonary embolism ( failed warfarin and eliquis) on AC w/ Lovenox, lupus anticoagulant positive, APA +. Her latest acute pulmonary embolisms were noted in 2015 on the setting of chronic pulmonary thromboembolism is significant clot burden. In 07/07/2016 she presented at the [facility] emergency room with a complaint of dyspnea. CT angiogram by that time showed no pulmonary embolism on the left, and worsened right-sided embolism). She was transferred to [facility] for Catheter Assisted (EKOS ) Thrombolysis Treatment. Ultrasound Dopplers were negative for DVT. Transthoracic echocardiography showed elevated of 70 mmhg compared to previous TTE in 2015 with RVSP of 33mmhg. EKOS was placed and removed without change in clott burden. And eventually patient received a second in IVC filter in 2015 because prior one was clotted. Eventually after consulting with hematology and CT surgery patient was discharged with higher dose of Lovenox 150 mg daily. According to patient after discharge from [facility] she has been at her normal state of health up until 4 days ago when she suffered from a mechanical fall. Her other medical problems includes hyperlipidemia, hypertension, diabetes on insulin and Januvia, neuropathy, depression, asthma, pulmonary hypertension on 2 L of home oxygen. Patient lives at home, has 3 kids healthy, lifetime nonsmoker independent and takes care of herself and her kids. Family history noncontributory. View of system: Patient complains of left lower extremity excruciating pain; physical exam: AO X3 anxious but not in acute distress, HEET: -JVD; CV: S1 lound S2 no murmur; extremities: LLE: + tenderness, swelling, + distal pulses on ph/ ex and on doppler; RLE: WNL; Pertinent Data Vital signs: Within normal limits CBC: WBC 20.8 with left shift no bandemia, hemoglobin 9.8/hematocrits 31.2, platelets 285; d-dimer 3234, sodium 131 (baseline), potassium 4.2 Dioxide 20, on a Gap 13, BUN 9, Creatinine 0.4, Glucose 528, Hemoglobin A1c 13.2, serum osmolarity 297, lactic acid 1.7 calcium 8.8 magnesium 1.1, elevated triglycerides and total cholesterol and cholesterol HDL ratio. CT scan w/ IV contrast of the LLE: Mild edema is also seen involving the sartorius and adductor longus muscles. This is a nonspecific finding and clinical correlation required for compartment syndrome. List of problems #1 Chronic pulmonary thromboembolism with massive clot burden and increased RVSP of 70 mmhg failed recent catheter thrombolysis procedure. * Admit to telemetry for close monitoring * Continue O2 supplementation nasal cannula 2 L * Stop Lovenox and is started patient on IV heparin dripp without bolus * Lasix was stopped after discharge from [facility] * ASA 81 Mg daily * Cardiology consult with Dr. Kramer * No need for new CTA: Known case of chronic pulmonary thromboembolism and patient is already on heparin drip; findings of CTA would not change the management * Obtain pulmonology consult- in the setting of severe pulmonary hypertension #2 hypercoagulable state; asymmetric swelling of left lower extremity. This patient is a high risk for forming blood clots. Second IVC filter was placed in June 2016. In the setting of recent trauma and her clinical presentation she might have an urgent situation, compartment syndrome associated w/ trauma w/o Fx 2/2 to tissue contussion, the other possibility for this patient considering her hypercoagulable state is ischemia-reperfusion after. CT w/ IV contrast could not R/O compartment syndrome. CK was normal. * NPO for possible procedure * Dr. Luis WALLER was informed and will see the patient * Keep the leg elevated * Obtain LLE doppler * Continue anticoagulation with IV heparin drip * Continue ASA #3 elevated blood sugar with normal AG. Per her medical records patient usually has an elevated blood sugar. During her admission and he'll she required insulin drip. Current HbA1c more than 13. An initial blood sugar more than 500 mg/dL. * NPO * Insulin for NPO patient Q6h * Continue insulin glargine 40 units subcutaneous at bedtime * Decrease Levemir to 24 U Q bed time- as long as she is NPO * Continue simvastatin 40 mg po daily * Accu-Check pre-meal and at bedtime * Obtain endocrinology consult #4 Acute on Chronic anemia: w/o any obvious source of bleeding. * Check CBC in the am and watch for drop * Guiac all the stools * Continue IV hydration * serial troponin and EKG; add on and repeat at 8 am #5 hypertension * Continue lisinopril 5 mg daily #6 chronic leukocytosis without source of infection: Watch off antibiotics #7 neuropathic pain * Continue gabapentin 300 mg 3 times a day #8 depression * continue Cymbalta 60 mg by mouth daily #9 history of asthma * continue Albu INH 2puff as needed * TRC/ Neb #10 low magnesium * IV Mg 2 Gr #11 moderate pain pathway Patient is full code Heparin drip/ No ALPS Heparin drip/ No ALPS
[2016-09-02 03:37] LABS: PTT 23 SEC (25-37)
--- NOTE | 2016-09-02 04:00 | NUR ---
PT A/O X4. RESP UNLABORED. PT REPORTS PAIN DECREASING AFTER BEING MEDICATED.
[2016-09-02] MEDS ORDERED: LISINOPRIL5 M1 PO (04:12)
--- NOTE | 2016-09-02 05:05 | NUR ---
PT TO CT SCAN
--- NOTE | 2016-09-02 05:27 | NUR ---
PT BACK FROM CT. TOLERTED WELL
[2016-09-02] MEDS ORDERED: SIMVASTATIN40 M1 PO (05:29)
--- NOTE | 2016-09-02 05:31 | Admission Certification ---
Admission Certification Certification Statement - As attending physician, I certify that at the time of - admission, based on clinical presentation, severity of - symptoms, need for further diagnostic testing and - therapeutic interventions, and risk of adverse outcomes - without in-hospital treatment, in my clinical assessment, - this patient requires an acute hospital stay for a minimum - of two nights or longer. I have also considered psychsocial - factors such as support system, advanced age, financial - issues, cognitive issues, and failed out-patient treatments, - past re-admission history, safety of patient, and lack of - compliance as applicable. Specific rationale supporting this admission is: Left lower extremity edema possible new DVT, uncontrolled diabetes and acute anemia.
--- NOTE | 2016-09-02 05:31 | NUR ---
PT SLEEPING. EASILY AROUSED TO VERBAL STIMULTION. RESP UNLBAORED. NSR ON THE MONITOR. NS AND HEPARIN INFUSING. WILL OCNTINUE TO MONITOR.
--- NOTE | 2016-09-02 05:44 | NUR ---
PT GOING TO ROOM 179-2
--- NOTE | 2016-09-02 05:47 | CT SCAN REPORT ---
EXAMINATION: CT LOWER EXTREMITY WITH CONTRAST, LEFT CLINICAL INFORMATION: Leg swelling. Assess for DVT. Questionable compartment syndrome. COMPARISON: None TECHNIQUE: Multidetector volumetric imaging of the left lower extremity was performed after administration of IV contrast. Coronal and sagittal reformatted images were obtained at the technologist workstation. DLP: 3557 mGy-cm FINDINGS: Vascular: There is suboptimal opacification of the venous system for complete detection of deep venous thrombosis. The left lower extremity arterial system is well opacified, demonstrating normal vascularity throughout the left lower extremity, including three-vessel runoff into the ankle. Nonvascular: There is subcutaneous stranding involving the fat of the left lower extremity extending from the thigh through the ankle, most prominent involving the thigh. No fluid collection. There is mild stranding along the deep musculature, involving the sartorius and adductor longus. The deep musculature of the left lower extremity is otherwise unremarkable. No soft tissue gas. The visualized portion of the bladder is unremarkable. There is no lymphadenopathy. There is mild presacral edema noted which is nonspecific. The visualized bowel is unremarkable. An IVC filter is partially visualized. The osseous structures demonstrate no acute abnormality. Normal alignment of the hip, knee, and ankle. IMPRESSION: 1. Suboptimal opacification of the venous system of the left lower extremity. This does not exclude a deep venous thrombosis. This can be further evaluated with a Doppler ultrasound. Of note, the patient has an IVC filter in place. 2. There is mild edema throughout the left lower extremity, greatest change tissues of the thigh. Mild edema is also seen involving the sartorius and adductor longus muscles. This is a nonspecific finding and clinical correlation required for compartment syndrome. 3. Presacral edema noted, of uncertain etiology.
[2016-09-02 06:28] LABS: ABSOLUTE BASOPHIL COUNT 0 /CUMM (0.0-0.2); ABSOLUTE EOSINOPHIL COUNT 0 /CUMM (0.0-0.7); ABSOLUTE GRANULOCYTE CT 15.9 /CUMM (1.4-6.5); ABSOLUTE LYMPH COUNT 2.9 /CUMM (1.2-3.4); ABSOLUTE MONOCYTE COUNT 0.8 /CUMM (0.10-0.60); BASOPHIL % 0.2 % (0.0-2.0); EOSINOPHIL % 0.1 % (0-5); HEMATOCRIT 28.3 % (37-47); MEAN CORPUSCULAR HGB 26.5 PG (27.0-31.0); MEAN CORPUSCULAR HGB CONC 31.9 G/DL (33.0-37.0); MEAN PLATELET VOLUME 8.6 FL (7.4-10.4); PLATELET COUNT 284 /CUMM (130-400); RBC DISTRIBUTION WIDTH 16.5 % (11.5-14.5); WHITE BLOOD CELL COUNT 19.6 /CUMM (4.8-10.8)
--- NOTE | 2016-09-02 08:08 | NUR ---
PT ARRIVED TO FLOOR AT APPROXIMATELY 0630 FROM ER. PT IS A/OX3 PRIMARILY KINYARWANDA SPEAKING, VSS AT THIS TIME. HEPARIN RUNNING AT 26ML/HR. PT C/O LLE PAIN 05/02, MEDICATION GIVEN PER EMAR. TELE MONITOR IN PLACE, [facility]. PT WAS ORIENTED TO ROOM, CALL [place] IN REACH, BED IN LOWEST POSITON, SIDE RAILS UP. PT IS AWARE OF NPO STATUS WAS ADVISED TO CALL FOR HELP WHEN AMBULATING TO THE BATHROOM. WILL CONTINUE TO MONITOR.
--- NOTE | 2016-09-02 08:13 | Cons- Endocrinology ---
General Information and HPI Consulting Request Date of Consult: 09/02/16 Requested By: medical team Reason for Consult: Uncontrolled diabetes Source of Information: patient, old records Exam Limitations: language barrier History of Present Illness: This 36-year-old woman has a history of diabetes over the past few years. 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 She was originally treated with oral medications but recently began insulin. Reportedly the patient was on Lantus 40 units daily prior to admission. When the patient into the hospital her sugar was 528, BUN 9, creatinine 0.4. Anion gap was normal at 13 and bicarbonate was 20. The patient presented to the emergency room after a fall at home landing on her left side. She noticed after the fall pain in her left leg and swelling. There was difficulty walking. Eventually she came by ambulance to the emergency room. The patient has a history of antiphospholipid syndrome and is status post pulmonary embolus and placement of an IV filter in February of 2016. She also has a history of hypertension and hyperlipidemia. Allergies/Medications Allergies: Coded Allergies: adhesive (Mild, RASH 02/12/16) latex (UNKNOWN 02/12/16) Home Med List: Albuterol Sulfate (Proair Hfa) 0.09 MG/Actuation LEOBARDO 2 PUFF INH PRN ASTHMA ( Reported) Duloxetine HCl 60 MG CAPSULE.DR 1 CAP PO DAILY MENTAL HEALTH (Reported) Enoxaparin Sodium (Lovenox) 150 MG/ML SYRINGE 150 MG SC DAILY BLOOD THINNER ( Reported) Gabapentin (Neurontin) 300 MG CAPSULE 1 CAP PO TID NEUROPATHY (Reported) Insulin Aspart, Recombinant (Novolog Flexpen) 100 UNIT/1 ML INSULN.PEN DIABETES (Reported) Insulin Glargine,Hum.rec.anlog (Toujeo Solostar) 300 UNIT/ML (1.5 ML) INSULN.PEN 40 UNITS SC QHS DM (Reported) Lisinopril 5 MG TABLET 1 TAB PO DAILY HTN (Reported) Simvastatin (Simvastatin*) 40 MG TABLET 1 TAB PO QPM HLP (Reported) Simvastatin (Simvastatin*) 5 MG TABLET 1 TAB PO DAILY CHOLESTEROL (Reported) Review of Systems Review of Systems Constitutional: Denies: chills, fever. Cardiovascular: Denies: chest pain. Respiratory: Denies: short of breath. GI: Denies: abdominal pain, nausea, vomiting. Genitourinary: Denies: dysuria. Skin: Reports: no symptoms. Hematologic/Endocrine: Reports: polyuria, polydipsia. Past History Travel History Traveled to [place] past 21 day No Medical History Neurological: migraine EENT: allergies, sinusitis Cardiovascular: hypertension, hyperlipidemia Respiratory: asthma, pulmonary embolism (recurrent. 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 FATHER (hypertension, diabetes mellitus). Psychosocial History Where Do You Live? Home Who Do You Live With? spouse, child, Male PArtner Services at Home: None Primary Language: Chilean, Ukrainian Smoking Status: Never Smoked ETOH Use: denies use Illicit Drug Use: denies illicit drug use Functional Ability ADLs Independent: dressing, eating, toileting, bathing. Ambulation: independent IADLs Independent: shopping, housework, finances, food prep, telephone, transportation , medication admin. Employment History Employment: Unemployed Exam & Diagnostic Data Last 24 Hrs of Vital Signs/I&O Vital Signs Date Time Temp Pulse Resp B/P Pulse O2 O2 Flow FiO2 Ox Delivery Rate 09/02 634 98 Nasal 2.0L Cannula 09/02 528 97.4 86 18 96/55 96 Nasal Cannula 09/024 97.6 90 18 124/70 98 Nasal Cannula 09/029 96.3 75 18 115/63 97 Nasal 2.0L Cannula Intake & Output 09/02 1600 09/02 0800 09/02 0000 Intake Total 1999 Output Total Balance 1999 Intake, IV 1999 Patient 198 lb Weight Vital Signs Date Time Temp Pulse Resp B/P Pulse O2 O2 Flow FiO2 Ox Delivery Rate 09/02 0535 98 Nasal 2.0L Cannula 09/02 0429 97.4 86 18 96/55 96 Nasal Cannula 09/02 0324 97.6 90 18 124/70 98 Nasal Cannula 09/02 0139 96.3 75 18 115/63 97 Nasal 2.0L Cannula Intake & Output 09/02 1600 09/02 0800 09/02 0000 Intake Total 2000 Output Total Balance 1999 Intake, IV 1999 Patient 198 lb Weight Physical Exam General Appearance: alert, awake, anxious Head: normal appearance Eyes: Bilateral: normal appearance. Neck: normal inspection Respiratory: normal breath sounds Cardiovascular: regular rate/rhythm Gastrointestinal: normal bowel sounds, soft, non-tender Extremities: swelling (both lower legs) Neurologic/Psych: awake, alert, oriented x 3 Skin: intact Labs/Manny Results: Vital Signs Date Time Temp Pulse Resp B/P Pulse O2 O2 Flow FiO2 Ox Delivery Rate 09/02 0635 98 Nasal 2.0L Cannula 09/02 0529 97.4 86 18 96/55 96 Nasal Cannula 09/02 0324 97.6 90 18 124/70 98 Nasal Cannula 09/02 0139 96.3 75 18 115/63 97 Nasal 2.0L Cannula Intake & Output 09/02 1600 09/02 0800 09/02 0000 Intake Total 1999 Output Total Balance 1999 Intake, IV 1999 Patient 198 lb Weight Assessment/Plan Assessment/Plan This patient presents with uncontrolled diabetes mellitus. There was no evidence of ketoacidosis. She has had a partial pancreatectomy which would contribute to her diabetes. The patient has a history of antiphospholipid syndrome and is status post pulmonary embolus in the past. She has a known IVC filter. She now presents with swelling of her left leg and pain in that area following a fall at home. I would consider a CT scan of the pelvis in view of the left leg swelling.. The patient also needs venous Doppler studies on her legs. The patient should also have imaging of her lumbosacral sacral spine and left hip to rule out fractures. With regard to her insulin I would change the Levemir to 12 units twice a day. While nothing by mouth I would place her on NovoLog sliding scale every 4 hours. NovoLog sliding scale every 4 hours should be 80-150 give no insulin, 151-200 give 4 units NovoLog, 201-250 give 5 units NovoLog, 251-300 give 6 units NovoLog , 301-350 give 7 units NovoLog, 351 of 400 give 8 units NovoLog. Once the patient's blood sugar gets to 250 we should change her IV fluids to D5 half-normal saline with 20 mEq KCl at 125 mL per hour while nothing by mouth. When the patient is eating I would continue the above dose of Levemir and change her sliding scale NovoLog to before meals with a separate sliding-scale at bedtime. Sliding-scale NovoLog before meals when eating should be 80-150 give 4 units NovoLog, 151-200 give 5 units NovoLog, 201-250 give 6 units NovoLog, 251- 300 give 8 units NovoLog, 301-350 give 9 units NovoLog, 351 of 400 give 10 units NovoLog. A separate sliding scale NovoLog should be written at bedtime when she is eating. Bedtime sliding scale NovoLog should be less than 250 give no insulin, 251-300 give 2 units NovoLog, 301-350 give 3 units NovoLog, 351 of 400 give 4 units NovoLog. When the patient is eating her IV fluids could be discontinued. Consult Acknowledgment - Thank you for your consult request.
--- NOTE | 2016-09-02 08:24 | Cons- General Surgery ---
General Information and HPI Consulting Request Date of Consult: 09/02/16 Requested By: MARYAM WALLER,JANELy Reason for Consult: compartment syndrome History of Present Illness: Asked my medical service to evaluate for thigh compartment syndrome. Patient states she fell three days ago. She c/o back and medial thigh pain. Hurts to walk, which prohibits her from ambulation. Allergies/Medications Allergies: Coded Allergies: adhesive (Mild, RASH 02/12/16) latex (UNKNOWN 02/12/16) Home Med List: Albuterol Sulfate (Proair Hfa) 0.09 MG/Actuation LEOBARDO 2 PUFF INH PRN ASTHMA ( Reported) Duloxetine HCl 60 MG CAPSULE.DR 1 CAP PO DAILY MENTAL HEALTH (Reported) Enoxaparin Sodium (Lovenox) 150 MG/ML SYRINGE 150 MG SC DAILY BLOOD THINNER ( Reported) Gabapentin (Neurontin) 300 MG CAPSULE 1 CAP PO TID NEUROPATHY (Reported) Insulin Aspart, Recombinant (Novolog Flexpen) 100 UNIT/1 ML INSULN.PEN DIABETES (Reported) Insulin Glargine,Hum.rec.anlog (Toujeo Solostar) 300 UNIT/ML (1.5 ML) INSULN.PEN 40 UNITS SC QHS DM (Reported) Lisinopril 5 MG TABLET 1 TAB PO DAILY HTN (Reported) Simvastatin (Simvastatin*) 40 MG TABLET 1 TAB PO QPM HLP (Reported) Simvastatin (Simvastatin*) 5 MG TABLET 1 TAB PO DAILY CHOLESTEROL (Reported) Past History Medical History Neurological: migraine EENT: allergies, sinusitis Cardiovascular: hypertension, hyperlipidemia Respiratory: asthma, pulmonary embolism (recurrent. 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 FATHER (hypertension, diabetes mellitus). Psychosocial History Where Do You Live? Home Who Do You Live With? spouse, child, Male PArtner Services at Home: None Primary Language: Maltese, Mongolian Smoking Status: Never Smoked ETOH Use: denies use Illicit Drug Use: denies illicit drug use Functional Ability ADLs Independent: dressing, eating, toileting, bathing. Ambulation: independent IADLs Independent: shopping, housework, finances, food prep, telephone, transportation , medication admin. Employment History Employment: Unemployed Review of Systems Review of Systems: leg pain. no abd pain. no dyspnea or cp. c/o back pain. remainder 12 neg. Exam & Diagnostic Data Vital Signs and I&O Vital Signs Date Time Temp Pulse Resp B/P Pulse O2 O2 Flow FiO2 Ox Delivery Rate 09/02 0535 98 Nasal 2.0L Cannula 09/02 0529 97.4 86 18 96/55 96 Nasal Cannula 09/02 0324 97.6 90 18 124/70 98 Nasal Cannula 09/02 0139 96.3 75 18 115/63 97 Nasal 2.0L Cannula Intake & Output 09/02 1600 09/02 0800 09/02 0000 09/01 1600 09/01 0809/01 0000 Intake Total 2000 Output Total Balance 2000 Intake, IV 2000 Patient 198 lb Weight Physical Exam: Gen: looks well. obese. a/o x3, appears comfortable in bed with child at her side./ heent: anicteric, mmm. perrl Leg: mild swelling lateral thigh. palpable femoral and dorsalis pedis pulse. 5/5 strenght of thigh and leg muscles. Normal sensation to thigh and leg. Last 24 Hours of Labs: Laboratory Tests 09/02 09/02 0615 0324 Chemistry Sodium (137 - 145 mmol/L) 134 L Potassium (3.5 - 5.1 mmol/L) 4.3 Chloride (98 - 107 mmol/L) 103 Carbon Dioxide (22 - 30 mmol/L) 21 L Anion Gap (5 - 16) 10 BUN (7 - 17 mg/dL) 7 Creatinine (0.5 - 1.0 mg/dL) 0.4 L Estimated GFR (>60 ml/min) > 60 BUN/Creatinine Ratio (7 - 25 %) 17.5 Coagulation APTT Cancelled Hematology CBC w Diff NO MAN DIFF REQ WBC (4.8 - 10.8 /CUMM) 19.6 H RBC (4.20 - 5.40 /CUMM) 3.40 L Hgb (12.0 - 16.0 G/DL) 9.0 L Hct (37 - 47 %) 28.3 L MCV (81.0 - 99.0 FL) 83.0 MCH (27.0 - 31.0 PG) 26.5 L RDW (11.5 - 14.5 %) 16.5 H Plt Count (130 - 400 /CUMM) 284 MPV (7.4 - 10.4 FL) 8.6 Gran % (42.2 - 75.2 %) 81.0 H Lymphocytes % (20.5 - 51.1 %) 14.7 L Monocytes % (1.7 - 9.3 %) 4.0 Eosinophils % (0 - 5 %) 0.1 Basophils % (0.0 - 2.0 %) 0.2 Absolute Granulocytes (1.4 - 6.5 /CUMM) 15.9 H Absolute Lymphocytes (1.2 - 3.4 /CUMM) 2.9 Absolute Monocytes (0.10 - 0.60 /CUMM) 0.8 H Absolute Eosinophils (0.0 - 0.7 /CUMM) 0 Absolute Basophils (0.0 - 0.2 /CUMM) 0 PUBS MCHC (33.0 - 37.0 G/DL) 31.9 L 09/02 0228 Chemistry Sodium (137 - 145 mmol/L) 131 L Potassium (3.5 - 5.1 mmol/L) 4.2 Chloride (98 - 107 mmol/L) 98 Carbon Dioxide (22 - 30 mmol/L) 20 L Anion Gap (5 - 16) 13 BUN (7 - 17 mg/dL) 9 Creatinine (0.5 - 1.0 mg/dL) 0.4 L Estimated GFR (>60 ml/min) > 60 BUN/Creatinine Ratio (7 - 25 %) 22.5 Glucose (65 - 99 mg/dL) 528 *H Calcium (8.4 - 10.2 mg/dL) 8.8 Magnesium (1.6 - 2.3 mg/dL) 1.1 L Total Bilirubin (0.2 - 1.3 mg/dL) 0.5 AST (14 - 36 U/L) 12 L ALT (9 - 52 U/L) 23 Alkaline Phosphatase (<127 U/L) 123 Creatine Kinase (30 - 135 U/L) 30 Troponin I (< 0.11 ng/ml) 0.01 Total Protein (6.3 - 8.2 g/dL) 6.5 Albumin (3.5 - 5.0 g/dL) 3.4 L Globulin (1.9 - 4.2 gm/dL) 3.1 Albumin/Globulin Ratio (1.1 - 2.2 %) 1.1 Coagulation PT (9.4 - 12.5 SEC) 11.5 INR (0.90 - 1.19) 1.10 APTT (25 - 37 SEC) 23 L D-Dimer (70 - 232 ng/ml) 3234 H Hematology CBC w Diff MAN DIFF ORDERED WBC (4.8 - 10.8 /CUMM) 20.8 H RBC (4.20 - 5.40 /CUMM) 3.72 L Hgb (12.0 - 16.0 G/DL) 9.8 L Hct (37 - 47 %) 31.2 L MCV (81.0 - 99.0 FL) 83.9 MCH (27.0 - 31.0 PG) 26.2 L RDW (11.5 - 14.5 %) 16.9 H Plt Count (130 - 400 /CUMM) 285 MPV (7.4 - 10.4 FL) 9.0 Gran % (42.2 - 75.2 %) 77.8 H Lymphocytes % (20.5 - 51.1 %) 15.2 L Monocytes % (1.7 - 9.3 %) 6.2 Eosinophils % (0 - 5 %) 0.5 Basophils % (0.0 - 2.0 %) 0.3 Absolute Granulocytes (1.4 - 6.5 /CUMM) 16.2 H Absolute Lymphocytes (1.2 - 3.4 /CUMM) 3.2 Absolute Monocytes (0.10 - 0.60 /CUMM) 1.3 H Absolute Eosinophils (0.0 - 0.7 /CUMM) 0.1 Absolute Basophils (0.0 - 0.2 /CUMM) 0.1 Platelet Estimate (ADEQUATE) ADEQUATE Hypochromic-Microcytic 1+ Poikilocytosis 1+ Target Cells 1+ Stomatocytes RARE [place] Cells 1+ PUBS MCHC (33.0 - 37.0 G/DL) 31.3 L Toxicology Acetone Level (NEGATIVE) POSITIVE AT 1:2 DIL Imaging Results: CT thigh and leg L shows minimal inflammatory changes Assessment/Plan Assessment/Plan Leg pain after fall. There is no evidence for compartment syndrome. She has normal strength, sensation and perfusion thigh and leg. No surgical intervention required. Defer w/u of back pain to primary team. Consult Acknowledgment - Thank you for your consult request.
[2016-09-02 08:30] VITALS: BP 106/60
--- NOTE | 2016-09-02 09:39 | Cons- Cardiology ---
General Information and HPI Consulting Request Date of Consult: 09/02/16 Requested By: MARYAM WALLER,NELSON Reason for Consult: Recurrent pulmonary embolism Source of Information: patient, old records Exam Limitations: no limitations History of Present Illness: The patient is a 36-year-old female with recurrent pulmonary emboli and antiphospholipid syndrome. She also has diabetes, hypertension, dyslipidemia. I have seen her a couple of times for this. She has had pulmonary embolectomy in the past, recurrent pulmonary emboli, IVC filter. She tells me that she was recently at [facility] for again recurrent pulmonary emboli. She was on Eliquis at that time but it was changed to Lovenox, which she has been using 150 mg subcutaneously daily. Her last admission here was in June for a noncardiac issue. The patient had a fall on August 29. Since that time she's had increasing pain in her left lower extremity, swelling of her knee and left calf. She was admitted because of swelling of her left leg and question of DVT. A CAT scan of the leg was nondiagnostic. An ultrasound is pending. She has been started on intravenous heparin at this point. Allergies/Medications Allergies: Coded Allergies: adhesive (Mild, RASH 02/12/16) latex (UNKNOWN 02/12/16) Home Med List: Albuterol Sulfate (Proair Hfa) 0.09 MG/Actuation LEOBARDO 2 PUFF INH PRN ASTHMA ( Reported) Duloxetine HCl 60 MG CAPSULE.DR 1 CAP PO DAILY MENTAL HEALTH (Reported) Enoxaparin Sodium (Lovenox) 150 MG/ML SYRINGE 150 MG SC DAILY BLOOD THINNER ( Reported) Gabapentin (Neurontin) 300 MG CAPSULE 1 CAP PO TID NEUROPATHY (Reported) Insulin Aspart, Recombinant (Novolog Flexpen) 100 UNIT/1 ML INSULN.PEN DIABETES (Reported) Insulin Glargine,Hum.rec.anlog (Toujeo Solostar) 300 UNIT/ML (1.5 ML) INSULN.PEN 40 UNITS SC QHS DM (Reported) Lisinopril 5 MG TABLET 1 TAB PO DAILY HTN (Reported) Simvastatin (Simvastatin*) 40 MG TABLET 1 TAB PO QPM HLP (Reported) Simvastatin (Simvastatin*) 5 MG TABLET 1 TAB PO DAILY CHOLESTEROL (Reported) Current Medications: Current Medications Sig/Omero Start time Last Medication Dose Route Stop Time Status Admin Acetaminophen 650 MG Q6P PRN 09/02 0530 AC PO Albuterol Sulfate 2 PUF Q4P PRN 09/02 0415 AC INH Aspirin 81 MG DAILY 09/02 1000 AC PO Atorvastatin Calcium 40 MG 1700 09/02 1700 AC PO Budesonide/ 2 PUF BID 09/02 1000 CAN Formoterol Fumarate INH Cyclobenzaprine HCl 5 MG TIDPRN PRN 09/02 0415 DC PO Duloxetine HCl 60 MG DAILY 09/02 1000 AC PO Furosemide 20 MG DAILY PRN 09/02 0415 DC PO Gabapentin 300 MG TID 09/02 1000 AC PO Heparin Sodium 0 .STK-MED ONE 09/02 0251 DC (Porcine) .ROUTE Heparin Sodium 5,000 UNIT ONCE ONE 09/02 0230 DC 09/02 (Porcine) IV 09/02 0231 0317 Heparin Sodium 25,000 UNIT Q24H 09/02 0230 AC 09/02 (Porcine) IV 0315 Sodium Chloride 500 ML Insulin Aspart 0 TIDAC 09/02 0800 CAN SC Insulin Detemir 24 UNITS DAILY 09/02 1000 AC SC Insulin Human Regular 0 Q6 09/02 0615 AC 09/02 SC 0724 Insulin Human Regular 10 UNITS ONCE ONE 09/02 0230 DC 09/02 IV 09/02 0231 0258 Lisinopril 5 MG DAILY 09/02 1000 AC PO Lorazepam 0.5 MG BID PRN 09/02 0415 DC PO 09/09 0414 Magnesium Oxide 400 MG BID 09/02 1000 CAN PO 09/03 2201 Magnesium Sulfate 1 GM Q2H 09/02 0630 AC 09/02 Dextrose/Water 100 ML IV 09/02 1029 0630 Montelukast Sodium 10 MG .[QHS] 09/02 0415 DC PO Morphine Sulfate 2 MG Q4P PRN 09/02 0530 AC 09/02 IV 0711 Morphine Sulfate 4 MG ONCE ONE 09/02 0300 DC 09/02 IV 09/02 0301 0258 Morphine Sulfate 0 .STK-MED ONE 09/02 0256 DC .ROUTE Oxycodone HCl 5 MG TID PRN 09/02 0415 DC PO Sodium Chloride 1,000 ML Q8H 09/02 0615 AC 09/02 IV 0712 Sodium Chloride 1,000 ML BOLUS ONE 09/02 0400 DC 09/02 IV 09/02 0459 0428 Sodium Chloride 1,000 ML BOLUS ONE 09/02 0330 DC 09/02 IV 09/02 0429 0329 Tramadol HCl 50 MG Q6PRN PRN 09/02 414 AC PO Trazodone HCl 150 MG QPM PRN 09/02 414 DC PO Review of Systems Review of Systems: She has no other complaints in the review of systems at this time. Past History Travel History Traveled to [place] past 21 day No Medical History Neurological: migraine EENT: allergies, sinusitis Cardiovascular: hypertension, hyperlipidemia Respiratory: asthma, pulmonary embolism (recurrent. 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 FATHER (hypertension, diabetes mellitus). Psychosocial History Where Do You Live? Home Who Do You Live With? spouse, child, Male PArtner Services at Home: None Primary Language: Belarusian, Amharic Smoking Status: Never Smoked ETOH Use: denies use Illicit Drug Use: denies illicit drug use Functional Ability ADLs Independent: dressing, eating, toileting, bathing. Ambulation: independent IADLs Independent: shopping, housework, finances, food prep, telephone, transportation , medication admin. Employment History Employment: Unemployed Exam & Diagnostic Data Vital Signs and I&O Vital Signs Date Time Temp Pulse Resp B/P Pulse O2 O2 Flow FiO2 Ox Delivery Rate 09/02 829 97.8 88 20 106/60 98 Nasal Cannula 09/02 0635 98 Nasal 2.0L Cannula 09/02 05 97.4 86 18 96/55 96 Nasal Cannula 09/02 0324 97.6 90 18 124/70 98 Nasal Cannula 09/02 0139 96.3 75 18 115/63 97 Nasal 2.0L Cannula Intake & Output 09/02 1600 09/02 0800 09/02 0000 09/01 1600 09/01 0000 Intake Total 2000 Output Total Balance 1999 Intake, IV 1999 Patient 198 lb Weight Physical Exam: She is in no distress HEENT exam is normal Chest is clear Heart reveals regular rhythm and no murmurs Abdomen is benign Extremities reveal swelling of her left knee and calf with tenderness. Labs/Manny Results: Laboratory Tests 09/02 09/02 1698 9043 Chemistry Sodium (137 - 145 mmol/L) 134 L Potassium (3.5 - 5.1 mmol/L) 4.3 Chloride (98 - 107 mmol/L) 103 Carbon Dioxide (22 - 30 mmol/L) 21 L Anion Gap (5 - 16) 10 BUN (7 - 17 mg/dL) 7 Creatinine (0.5 - 1.0 mg/dL) 0.4 L Estimated GFR (>60 ml/min) > 60 BUN/Creatinine Ratio (7 - 25 %) 17.5 Coagulation APTT Cancelled Hematology CBC w Diff NO MAN DIFF REQ WBC (4.8 - 10.8 /CUMM) 19.6 H RBC (4.20 - 5.40 /CUMM) 3.40 L Hgb (12.0 - 16.0 G/DL) 9.0 L Hct (37 - 47 %) 28.3 L MCV (81.0 - 99.0 FL) 83.0 MCH (27.0 - 31.0 PG) 26.5 L RDW (11.5 - 14.5 %) 16.5 H Plt Count (130 - 400 /CUMM) 284 MPV (7.4 - 10.4 FL) 8.6 Gran % (42.2 - 75.2 %) 81.0 H Lymphocytes % (20.5 - 51.1 %) 14.7 L Monocytes % (1.7 - 9.3 %) 4.0 Eosinophils % (0 - 5 %) 0.1 Basophils % (0.0 - 2.0 %) 0.2 Absolute Granulocytes (1.4 - 6.5 /CUMM) 15.9 H Absolute Lymphocytes (1.2 - 3.4 /CUMM) 2.9 Absolute Monocytes (0.10 - 0.60 /CUMM) 0.8 H Absolute Eosinophils (0.0 - 0.7 /CUMM) 0 Absolute Basophils (0.0 - 0.2 /CUMM) 0 PUBS MCHC (33.0 - 37.0 G/DL) 31.9 L 09/028 Chemistry Sodium (137 - 145 mmol/L) 131 L Potassium (3.5 - 5.1 mmol/L) 4.2 Chloride (98 - 107 mmol/L) 98 Carbon Dioxide (22 - 30 mmol/L) 20 L Anion Gap (5 - 16) 13 BUN (7 - 17 mg/dL) 9 Creatinine (0.5 - 1.0 mg/dL) 0.4 L Estimated GFR (>60 ml/min) > 60 BUN/Creatinine Ratio (7 - 25 %) 22.5 Glucose (65 - 99 mg/dL) 528 *H Calcium (8.4 - 10.2 mg/dL) 8.8 Magnesium (1.6 - 2.3 mg/dL) 1.1 L Total Bilirubin (0.2 - 1.3 mg/dL) 0.5 AST (14 - 36 U/L) 12 L ALT (9 - 52 U/L) 23 Alkaline Phosphatase (<127 U/L) 123 Creatine Kinase (30 - 135 U/L) 30 Troponin I (< 0.11 ng/ml) 0.01 Total Protein (6.3 - 8.2 g/dL) 6.5 Albumin (3.5 - 5.0 g/dL) 3.4 L Globulin (1.9 - 4.2 gm/dL) 3.1 Albumin/Globulin Ratio (1.1 - 2.2 %) 1.1 Coagulation PT (9.4 - 12.5 SEC) 11.5 INR (0.90 - 1.19) 1.10 APTT (25 - 37 SEC) 23 L D-Dimer (70 - 232 ng/ml) 3234 H Hematology CBC w Diff MAN DIFF ORDERED WBC (4.8 - 10.8 /CUMM) 20.8 H RBC (4.20 - 5.40 /CUMM) 3.72 L Hgb (12.0 - 16.0 G/DL) 9.8 L Hct (37 - 47 %) 31.2 L MCV (81.0 - 99.0 FL) 83.9 MCH (27.0 - 31.0 PG) 26.2 L RDW (11.5 - 14.5 %) 16.9 H Plt Count (130 - 400 /CUMM) 285 MPV (7.4 - 10.4 FL) 9.0 Gran % (42.2 - 75.2 %) 77.8 H Lymphocytes % (20.5 - 51.1 %) 15.2 L Monocytes % (1.7 - 9.3 %) 6.2 Eosinophils % (0 - 5 %) 0.5 Basophils % (0.0 - 2.0 %) 0.3 Absolute Granulocytes (1.4 - 6.5 /CUMM) 16.2 H Absolute Lymphocytes (1.2 - 3.4 /CUMM) 3.2 Absolute Monocytes (0.10 - 0.60 /CUMM) 1.3 H Absolute Eosinophils (0.0 - 0.7 /CUMM) 0.1 Absolute Basophils (0.0 - 0.2 /CUMM) 0.1 Platelet Estimate (ADEQUATE) ADEQUATE Hypochromic-Microcytic 1+ Poikilocytosis 1+ Target Cells 1+ Stomatocytes RARE [place] Cells 1+ PUBS MCHC (33.0 - 37.0 G/DL) 31.3 L Toxicology Acetone Level (NEGATIVE) POSITIVE AT 1:2 DIL Diagnostic Data EKG Results EKG on admission shows sinus rhythm at a rate of 88 with minor nonspecific lateral T-wave changes. CXR Results No chest x-ray done at this time Other Results IMPRESSION: 1. Suboptimal opacification of the venous system of the left lower extremity. This does not exclude a deep venous thrombosis. This can be further evaluated with a Doppler ultrasound. Of note, the patient has an IVC filter in place. 2. There is mild edema throughout the left lower extremity, greatest change tissues of the thigh. Mild edema is also seen involving the sartorius and adductor longus muscles. This is a nonspecific finding and clinical correlation required for compartment syndrome. 3. Presacral edema noted, of uncertain etiology. DICTATED BY: PAYMA WALLER,BRUNO DATE/TIME DICTATED:09/02/16531 REAL ESTATE ACCOUNT EXECUTIVE:BRAIN DATE/TIME TRANSCRIBED:09/02/16531 CONFIDENTIAL, DO NOT COPY WITHOUT APPROPRIATE AUTHORIZATION. CONCLUSIONS Normal left ventricular size, wall thickness and systolic function with no obvious regional wall motion abnormalities. The left atrium is normal in size. Mild thickening/calcification of the mitral valve leaflets. No mitral regurgitation. Structurally normal aortic valve without significant sclerosis or stenosis. Mild tricuspid regurgitation. Right ventricular systolic pressure estimated to be elevated at 50- 55 mmHg. Moderate pulmonary hypertension. The right ventricle is mildly dilated. Compared to the echocardiogram of 03/10/2016 pulmonary artery pressures slightly decreased on the current study Godwin Kramer M.D. (Electronically Signed) Final Date: 02 September 2016 14:26 Assessment/Plan Assessment/Plan This patient presents with swelling and tenderness of her left leg after a fall. DVT is being evaluated with an ultrasound which is pending. (This study was positive for bilateral DVT) She has recurrent pulmonary emboli including by her history recent pulmonary embolus. I would recommend an echocardiogram to look at her right-sided pressures etc. The echocardiogram has been done and shows moderate pulmonary hypertension, perhaps a little less than the last echo in 2016 but still significant. There is no evidence of right heart failure on the echo. I would recommend trying to get her [facility] records from her recent hospitalization there which will be important in her care. In view of recurrent DVT a vascular consultation would be of interest. Consult Acknowledgment - Thank you for your consult request.
[2016-09-02 10:51] LABS: PTT 45 SEC (25-37)
--- NOTE | 2016-09-02 13:11 | ULTRASOUND REPORT ---
EXAMINATION: US LOWER EXTREMITY VEINS, BILATERAL CLINICAL INFORMATION: Bilateral lower extremity pain and edema. COMPARISON: None TECHNIQUE: Color-flow triplex imaging with spectral analysis and compression Doppler were performed on the bilateral lower extremities. FINDINGS: On the right, the deep venous system is partially occluded with noncompressible thrombus extending from the upper portion of the popliteal vein into the common femoral vein. Decreased Doppler flow is noted in this region with no color signal whatsoever. Some calf veins are patent. On the left, there are areas of noncompressibility are also present from the upper popliteal vein extending into the common femoral vein with decreased Doppler flow and no color signal in some areas. There is no Ku's cyst. IMPRESSION: Evidence of bilateral DVT from the region of the popliteal veins extending up to the common femoral veins bilaterally. This critical result was discussed with Dr. Sandra Fletcher at 1:05 PM on the day of the exam and it was ascertained that the content and urgency of the report was understood at the time of direct communication. .
--- NOTE | 2016-09-02 13:50 | ULTRASOUND REPORT ---
EXAMINATION: US DUPLEX LOWER EXTREMITY ARTERY/GRAFT LIMITED, LEFT CLINICAL INFORMATION: Asymmetric swelling of the left leg. COMPARISON: DVT ultrasound 09/02/2016. TECHNIQUE: Left lower extremity duplex arterial ultrasound was performed. FINDINGS: Biphasic waveforms are seen throughout the left lower extremity with the exception of the distal SFA which is triphasic. These changes may be due to swelling in the presence of DVT. The peak systolic velocities are normal. There is no evidence of hemodynamically significant lower extremity arterial disease. IMPRESSION: No convincing evidence of hemodynamically significant peripheral arterial disease. Mildly abnormal waveforms may be due to obstructed venous outflow in the presence of extensive left lower extremity DVT.
--- NOTE | 2016-09-02 14:27 | ECHOCARDIOGRAM REPORT ---
JAIMIE CHEN Age: 36 : 1980 Gender: F Exam Date: 09/02/2016 10:40 Exam Location: [address] [facility] Ht (in): 63 Wt (lb): 198 BSA: 2.04 BP: 106 / 60 Ordering Physician: SHAW KRAMER MD Referring Physician: SHAW KRAMER MD Technologist: Santy Wooten [facility] Room Number: 179-1 Indications: PULMONARY HYPERTENSION Rhythm: Sinus Technical Quality: Good FINDINGS Left Ventricle Normal left ventricular size, wall thickness and systolic function with no obvious regional wall motion abnormalities. Normal left ventricular diastolic filling pattern for age. The ejection fraction is visually estimated at >65 %. Right Ventricle The right ventricle is mildly dilated. Right Atrium The right atrium is normal in size. Left Atrium The left atrium is normal in size. The interatrial septum is intact. Mitral Valve Mild thickening/calcification of the mitral valve leaflets. No mitral regurgitation. Aortic Valve Structurally normal aortic valve without significant sclerosis or stenosis. There is no aortic regurgitation. Tricuspid Valve Structurally normal tricuspid valve. Mild tricuspid regurgitation. Right ventricular systolic pressure estimated to be elevated at 50- 55 mmHg. Moderate pulmonary hypertension. Pulmonic Valve Structurally normal pulmonic valve. There is trace pulmonic regurgitation. Pericardium Normal pericardium without effusion. No pleural effusion. Great Vessels Normal aortic root dimension. The aortic arch and great vessels are well seen and are normal. CONCLUSIONS Normal left ventricular size, wall thickness and systolic function with no obvious regional wall motion abnormalities. The left atrium is normal in size. Mild thickening/calcification of the mitral valve leaflets. No mitral regurgitation. Structurally normal aortic valve without significant sclerosis or stenosis. Mild tricuspid regurgitation. Right ventricular systolic pressure estimated to be elevated at 50- 55 mmHg. Moderate pulmonary hypertension. The right ventricle is mildly dilated. Compared to the echocardiogram of 03/10/2016 pulmonary artery pressures slightly decreased on the current study Shaw Kramer M.D. (Electronically Signed) Final Date: 02 September 2016 14:26 MEASUREMENTS (Male / Female) Normal Values 2D ECHO LV Diastolic Diameter PLAX 3.9 cm 4.2 - 5.9 / 3.9 - 5.3 cm LV Systolic Diameter PLAX 2.5 cm 2.1 - 4.0 cm LV Fractional Shortening PLAX 35.9 % 25 - 46 % LV Ejection Fraction 2D Teich 66.1 % IVS Diastolic Thickness 1.0 cm LVPW Diastolic Thickness 1.0 cm LV Relative Wall Thickness 0.5 RV Internal Dim ED PLAX 3.7 cm 1.9 - 3.8 cm LVOT Diameter 1.8 cm Aortic Root Diameter 2.4 cm LA Systolic Diameter LX 3.5 cm 3.0 - 4.0 / 2.7 - 3.8 cm LA Volume 33.0 cm 18 - 58 / 22 - 52 cm Ascending Aorta Diameter 3.3 cm DOPPLER AV Peak Velocity 159.0 cm/s AV Peak Gradient 10.1 mmHg AV Mean Velocity 105.0 cm/s AV Mean Gradient 5.0 mmHg AV Velocity Time Integral 30.6 cm LVOT Peak Velocity 111.0 cm/s LVOT Peak Gradient 4.9 mmHg LVOT Mean Velocity 81.5 cm/s LVOT Mean Gradient 3.0 mmHg LVOT Velocity Time Integral 22.9 cm LVOT Stroke Volume 58.3 cm AV Area Cont Eq vti 1.9 cm AV Area Cont Eq pk 1.8 cm MV Peak Velocity 125.0 cm/s MV Peak Gradient 6.3 mmHg MV Mean Velocity 81.7 cm/s MV Mean Gradient 3.0 mmHg Mitral E Point Velocity 118.0 cm/s Mitral A Point Velocity 93.3 cm/s Mitral E to A Ratio 1.3 MV PHT Velocity 118.0 cm/s MV Deceleration Coamo 435.0 cm/s MV Pressure Half Time 81.4 ms MV Area PHT 2.7 cm MV Deceleration Time 243.0 ms TR Peak Velocity 349.0 cm/s TR Peak Gradient 48.7 mmHg Right Atrial Pressure 5.0 mmHg Pulmonary Artery Systolic Pressu 53.7 mmHg Right Ventricular Systolic Press 53.7 mmHg PV Peak Velocity 123.0 cm/s PV Peak Gradient 6.1 mmHg PV Mean Velocity 95.0 cm/s PV Mean Gradient 4.0 mmHg PV Velocity Time Integral 32.6 cm LV E' Lateral Velocity 13.1 cm/s Mitral E to LV E' Lateral Ratio 9.0 LV E' Septal Velocity 9.2 cm/s Mitral E to LV E' Septal Ratio 12.9
--- NOTE | 2016-09-02 15:03 | PN- Att Addend ---
Attending Addendum Attending Brief Note Patient seen and examined lying in bed and not in acute distress. Denies chest pain or palpitations. Reports mild shortness of breath but states that this is chronic for her. She is afebrile and hemodynamically stable. Dopplers of bilateral lower extremity have returned positive for bilateral thrombosis extending from the popliteal veins to the common femoral veins. Vital Signs Date Time Temp Pulse Resp B/P Pulse O2 O2 Flow FiO2 Ox Delivery Rate 09/02 1421 Nasal 2.0L Cannula 09/02 1000 88 106/60 09/02 0830 97.8 88 20 106/60 98 Nasal Cannula 09/02 0800 95 Nasal 2.0L Cannula 09/02 0635 98 Nasal 2.0L Cannula 09/02 0529 97.4 86 18 96/55 96 Nasal Cannula 09/02 0324 97.6 90 18 124/70 98 Nasal Cannula 09/02 0139 96.3 75 18 115/63 97 Nasal 2.0L Cannula Gen. appearance: Well-developed, not in acute distress. Heart: S1-S2 regular Lungs: Fair entry bilaterally, clear to auscultation Abdomen: Soft, nontender with normal bowel sounds Extremities bilateral lower extremity edema, left greater than right. Tenderness left lower extremity extending from the groin down to the cough. Distal pulses palpable bilaterally extremities. Bilateral lower extremity is mildly cold to touch however no cyanosis. Laboratory Tests 09/02/16 1015: Troponin I < 0.01, APTT 45 H 09/02/16 0615: Anion Gap 10, Estimated GFR > 60, BUN/Creatinine Ratio 17.5, CBC w Diff NO MAN DIFF REQ, RBC 3.40 L, MCV 83.0, MCH 26.5 L, RDW 16.5 H, MPV 8.6, Gran % 81.0 H, Lymphocytes % 14.7 L, Monocytes % 4.0, Eosinophils % 0.1, Basophils % 0.2, Absolute Granulocytes 15.9 H, Absolute Lymphocytes 2.9, Absolute Monocytes 0.8 H, Absolute Eosinophils 0, Absolute Basophils 0, PUBS MCHC 31.9 L 09/02/16 0324: APTT Cancelled 09/02/168: Anion Gap 13, Estimated GFR > 60, BUN/Creatinine Ratio 22.5, Glucose 528 *H, Calcium 8.8, Magnesium 1.1 L, Total Bilirubin 0.5, AST 12 L, ALT 23, Alkaline Phosphatase 123, Creatine Kinase 30, Troponin I 0.01, Total Protein 6.5, Albumin 3.4 L, Globulin 3.1, Albumin/Globulin Ratio 1.1, PT 11.5, INR 1.10, APTT 23 L, D-Dimer 3234 H, CBC w Diff MAN DIFF ORDERED, RBC 3.72 L, MCV 83.9, MCH 26.2 L , RDW 16.9 H, MPV 9.0, Gran % 77.8 H, Lymphocytes % 15.2 L, Monocytes % 6.2, Eosinophils % 0.5, Basophils % 0.3, Absolute Granulocytes 16.2 H, Absolute Lymphocytes 3.2, Absolute Monocytes 1.3 H, Absolute Eosinophils 0.1, Absolute Basophils 0.1, Platelet Estimate ADEQUATE, Hypochromic-Microcytic 1+, Poikilocytosis 1+, Target Cells 1+, Stomatocytes RARE, [place] Cells 1+, PUBS MCHC 31.3 L, Acetone Level POSITIVE AT 1:2 DIL Lower extremity Dopplers Evidence of bilateral DVT from the region of the popliteal veins extending up to the common femoral veins bilaterally. This critical result was discussed with Dr. Sandra Fletcher at 1:05 PM on the day of the exam and it was ascertained that the content and urgency of the report was understood at the time of direct communication. . Problems: 1. Recurrent venous thromboembolism; despite multitude of and cognition therapy (failed Coumadin and Eliquis in the past, currently on Lovenox prior to presentation) secondary to hypercoagulable state. She is status post thrombectomy in 2009 and IVC filter placement in 2016. 2. Chronic thromboembolic pulmonary hypertension. 3. Poorly controlled insulin-dependent diabetes mellitus. 4. Anemia. 5. Chronic leukocytosis. Plan: -Due to the massive nature of her bilateral DVT, she may be a candidate for thrombolytic therapy. Please discuss with the vascular surgery service. Currently despite her pain she has no evidence of limb ischemia. -Unfortunately there are other options for and cognition therapy for her. She has failed Coumadin and Eliquis in the past. She reports good compliance with her medication regimen. She was already on high dose of Lovenox prior to admission. We'll continue heparin infusion for now and consult the hematology service for further anticoagulation recommendations. -Continue morphine for pain control. Transition to oral medications. Give patient on Percocet. -Patient reports that she is compliant with her insulin regimen. She does admit to poor compliance with dietary recommendations. Endocrinology consultation appreciated. She is no longer nothing by mouth. Will adjust her insulin regimen accordingly. Patient reports that she was on Januvia and long-acting insulin prior to hospitalization at [place]. She was discharged [facility] with discontinuation of general via -Cardiology consultation appreciated. No events overnight on telemetry. She has pulmonary hypertension noted on echocardiogram. Pressures however are improved compared to previous. Discontinue telemetry monitoring. -Her hemoglobin level is acutely decreased from June mildly decreased compared to presentation. Repeat H&H this afternoon and daily. Guaiac all stools.
[2016-09-02 16:22] VITALS: BP 102/58
--- NOTE | 2016-09-02 16:49 | Cons- Vascular Surgery ---
General Information and HPI Consulting Request Date of Consult: 09/02/16 Requested By: MARYAM WALLER,NELSON Reason for Consult: bilat le dvt Source of Information: patient, old records Exam Limitations: no limitations History of Present Illness: Ms. 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 The patient states she was in her normal state of health until 08/29/2016 when after waking up in the a.m. she fell after missing a step. The patient states that she landed on her left side. She denies any loss of consciousness and states this was merely a mechanical fall. Since the 08/29, the patient has had increasing worsening pain in the left lower extremity. She has had a hard time with her ADLs. She has taken Flexeril for symptomatic relief. Linear of admission the patient rates the pain as a 10 out of 10 in severity. Located on the left flank and all through the left lower extremity, down to her left knee. Pain is described as a sharp pain. Worse with ambulation and movement. She denies any fever, chills, nausea, vomiting. She endorses subjective chills. Allergies/Medications Allergies: Coded Allergies: adhesive (Mild, RASH 02/12/16) latex (UNKNOWN 02/12/16) Home Med List: Albuterol Sulfate (Proair Hfa) 0.09 MG/Actuation LEOBARDO 2 PUFF INH PRN ASTHMA ( Reported) Duloxetine HCl 60 MG CAPSULE.DR 1 CAP PO DAILY MENTAL HEALTH (Reported) Enoxaparin Sodium (Lovenox) 150 MG/ML SYRINGE 150 MG SC DAILY BLOOD THINNER ( Reported) Gabapentin (Neurontin) 300 MG CAPSULE 1 CAP PO TID NEUROPATHY (Reported) Insulin Aspart, Recombinant (Novolog Flexpen) 100 UNIT/1 ML INSULN.PEN DIABETES (Reported) Insulin Glargine,Hum.rec.anlog (Toujeo Solostar) 300 UNIT/ML (1.5 ML) INSULN.PEN 40 UNITS SC QHS DM (Reported) Lisinopril 5 MG TABLET 1 TAB PO DAILY HTN (Reported) Simvastatin (Simvastatin*) 40 MG TABLET 1 TAB PO QPM HLP (Reported) Simvastatin (Simvastatin*) 5 MG TABLET 1 TAB PO DAILY CHOLESTEROL (Reported) Past History Medical History Neurological: migraine EENT: allergies, sinusitis Cardiovascular: hypertension, hyperlipidemia Respiratory: asthma, pulmonary embolism (recurrent. 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 FATHER (hypertension, diabetes mellitus). Psychosocial History Where Do You Live? Home Who Do You Live With? spouse, child, Male PArtner Services at Home: None Primary Language: Trinidadian, [place] Verde[place] Smoking Status: Never Smoked ETOH Use: denies use Illicit Drug Use: denies illicit drug use Functional Ability ADLs Independent: dressing, eating, toileting, bathing. Ambulation: independent IADLs Independent: shopping, housework, finances, food prep, telephone, transportation , medication admin. Employment History Employment: Unemployed Exam & Diagnostic Data Vital Signs and I&O Vital Signs Date Time Temp Pulse Resp B/P Pulse O2 O2 Flow FiO2 Ox Delivery Rate 09/02 1622 98.7 95 20 102/58 95 Nasal 2.0L Cannula 09/02 1421 Nasal 2.0L Cannula 09/02 1000 88 106/60 09/02 0830 97.8 88 20 106/60 98 Nasal Cannula 09/02 0800 95 Nasal 2.0L Cannula 09/02 0635 98 Nasal 2.0L Cannula 09/02 0529 97.4 86 18 96/55 96 Nasal Cannula 09/02 0324 97.6 90 18 124/70 98 Nasal Cannula 09/02 0139 96.3 75 18 115/63 97 Nasal 2.0L Cannula Intake & Output 09/02 1600 09/02 0800 09/02 0000 09/01 1600 09/01 0809/01 0000 Intake Total 935 1999 Output Total Balance 935 1999 Intake, IV 215 1999 Intake, Oral 720 Patient 198 lb Weight Physical Exam General Appearance: alert, awake, mild distress Head: atraumatic, normal appearance Eyes: Bilateral: PERRL. Ears, Nose, Throat: normal pharynx Neck: normal inspection Respiratory: normal breath sounds, wheezing Cardiovascular: regular rate/rhythm Peripheral Pulses: 4+ tibialis posterior (R), 4+ tibialis posterior (L), 4+ dorsalis pedis (R), 4+ dorsalis pedis (L) Gastrointestinal: normal bowel sounds, soft, non-tender Back: normal inspection Extremities: swelling, tenderness Neurologic/Psych: oriented x 3 Last 24 Hours of Labs: Laboratory Tests 09/02 09/02 09/02 1015 0615 0324 Chemistry Sodium (137 - 145 mmol/L) 134 L Potassium (3.5 - 5.1 mmol/L) 4.3 Chloride (98 - 107 mmol/L) 103 Carbon Dioxide (22 - 30 mmol/L) 21 L Anion Gap (5 - 16) 10 BUN (7 - 17 mg/dL) 7 Creatinine (0.5 - 1.0 mg/dL) 0.4 L Estimated GFR (>60 ml/min) > 60 BUN/Creatinine Ratio (7 - 25 %) 17.5 Troponin I (< 0.11 ng/ml) < 0.01 Coagulation APTT (25 - 37 SEC) 45 H Cancelled Hematology CBC w Diff NO MAN DIFF REQ WBC (4.8 - 10.8 /CUMM) 19.6 H RBC (4.20 - 5.40 /CUMM) 3.40 L Hgb (12.0 - 16.0 G/DL) 9.0 L Hct (37 - 47 %) 28.3 L MCV (81.0 - 99.0 FL) 83.0 MCH (27.0 - 31.0 PG) 26.5 L RDW (11.5 - 14.5 %) 16.5 H Plt Count (130 - 400 /CUMM) 284 MPV (7.4 - 10.4 FL) 8.6 Gran % (42.2 - 75.2 %) 81.0 H Lymphocytes % (20.5 - 51.1 %) 14.7 L Monocytes % (1.7 - 9.3 %) 4.0 Eosinophils % (0 - 5 %) 0.1 Basophils % (0.0 - 2.0 %) 0.2 Absolute Granulocytes (1.4 - 6.5 /CUMM) 15.9 H Absolute Lymphocytes (1.2 - 3.4 /CUMM) 2.9 Absolute Monocytes (0.10 - 0.60 /CUMM) 0.8 H Absolute Eosinophils (0.0 - 0.7 /CUMM) 0 Absolute Basophils (0.0 - 0.2 /CUMM) 0 PUBS MCHC (33.0 - 37.0 G/DL) 31.9 L 09/028 Chemistry Sodium (137 - 145 mmol/L) 131 L Potassium (3.5 - 5.1 mmol/L) 4.2 Chloride (98 - 107 mmol/L) 98 Carbon Dioxide (22 - 30 mmol/L) 20 L Anion Gap (5 - 16) 13 BUN (7 - 17 mg/dL) 9 Creatinine (0.5 - 1.0 mg/dL) 0.4 L Estimated GFR (>60 ml/min) > 60 BUN/Creatinine Ratio (7 - 25 %) 22.5 Glucose (65 - 99 mg/dL) 528 *H Calcium (8.4 - 10.2 mg/dL) 8.8 Magnesium (1.6 - 2.3 mg/dL) 1.1 L Total Bilirubin (0.2 - 1.3 mg/dL) 0.5 AST (14 - 36 U/L) 12 L ALT (9 - 52 U/L) 23 Alkaline Phosphatase (<127 U/L) 123 Creatine Kinase (30 - 135 U/L) 30 Troponin I (< 0.11 ng/ml) 0.01 Total Protein (6.3 - 8.2 g/dL) 6.5 Albumin (3.5 - 5.0 g/dL) 3.4 L Globulin (1.9 - 4.2 gm/dL) 3.1 Albumin/Globulin Ratio (1.1 - 2.2 %) 1.1 Coagulation PT (9.4 - 12.5 SEC) 11.5 INR (0.90 - 1.19) 1.10 APTT (25 - 37 SEC) 23 L D-Dimer (70 - 232 ng/ml) 3234 H Hematology CBC w Diff MAN DIFF ORDERED WBC (4.8 - 10.8 /CUMM) 20.8 H RBC (4.20 - 5.40 /CUMM) 3.72 L Hgb (12.0 - 16.0 G/DL) 9.8 L Hct (37 - 47 %) 31.2 L MCV (81.0 - 99.0 FL) 83.9 MCH (27.0 - 31.0 PG) 26.2 L RDW (11.5 - 14.5 %) 16.9 H Plt Count (130 - 400 /CUMM) 285 MPV (7.4 - 10.4 FL) 9.0 Gran % (42.2 - 75.2 %) 77.8 H Lymphocytes % (20.5 - 51.1 %) 15.2 L Monocytes % (1.7 - 9.3 %) 6.2 Eosinophils % (0 - 5 %) 0.5 Basophils % (0.0 - 2.0 %) 0.3 Absolute Granulocytes (1.4 - 6.5 /CUMM) 16.2 H Absolute Lymphocytes (1.2 - 3.4 /CUMM) 3.2 Absolute Monocytes (0.10 - 0.60 /CUMM) 1.3 H Absolute Eosinophils (0.0 - 0.7 /CUMM) 0.1 Absolute Basophils (0.0 - 0.2 /CUMM) 0.1 Platelet Estimate (ADEQUATE) ADEQUATE Hypochromic-Microcytic 1+ Poikilocytosis 1+ Target Cells 1+ Stomatocytes RARE Hockley Cells 1+ PUBS MCHC (33.0 - 37.0 G/DL) 31.3 L Toxicology Acetone Level (NEGATIVE) POSITIVE AT 1:2 DIL Imaging Results: SERVICE DATE: 09/02/16- EXAM TYPE: US - US-EXT BILAT VENOUS DOPPLER EXAMINATION: US LOWER EXTREMITY VEINS, BILATERAL CLINICAL INFORMATION: Bilateral lower extremity pain and edema. COMPARISON: None TECHNIQUE: Color-flow triplex imaging with spectral analysis and compression Doppler were performed on the bilateral lower extremities. FINDINGS: On the right, the deep venous system is partially occluded with noncompressible thrombus extending from the upper portion of the popliteal vein into the common femoral vein. Decreased Doppler flow is noted in this region with no color signal whatsoever. Some calf veins are patent. On the left, there are areas of noncompressibility are also present from the upper popliteal vein extending into the common femoral vein with decreased Doppler flow and no color signal in some areas. There is no Ku's cyst. IMPRESSION: Evidence of bilateral DVT from the region of the popliteal veins extending up to the common femoral veins bilaterally. This critical result was discussed with Dr. Sandra Fletcher at 1:05 PM on the day of the exam and it was ascertained that the content and urgency of the report was understood at the time of direct communication. . DICTATED BY: ZAIN COTTON MD DATE/TIME DICTATED:09/02/161238 RN EMBEDDED:BRAIN DATE/TIME TRANSCRIBED:09/02/161238 Assessment/Plan Assessment/Plan Mrs. Jaimes is a 36-year-old female who presents with bilateral leg pain with ambulation with past medical history of DVT PE currently on Lovenox. Ultrasound bilateral extremities show bilateral lower extremity DVT from popliteal area to mid common femoral veins. This case was discussed with Dr. Shelton in detail and he wishes that the patient get a portable abdominal flat plate now to verify placement of IVC filter, then titrate her pain medication so that she may get out of bed and ambulate with physical therapy, and adjust her Lovenox dose to twice a day dosing when weaned from heparin drip. Plan Portable abdominal flat plate now Titrate pain medications so that patient may ambulate with physical therapy Out of bed with physical therapy weightbearing as tolerated bilateral lower extremity Consider adjusting Lovenox dose to twice a day when weaned from heparin drip If patient is unable to ambulate with physical therapy due to pain consideration may be given for thrombolysisl lysis. Vascular attending will be advised to evaluate the patient in a.m. Consult Acknowledgment - Thank you for your consult request.
--- NOTE | 2016-09-02 17:24 | RADIOLOGY REPORT ---
EXAMINATION: XR PORTABLE ABDOMEN CLINICAL INFORMATION: Bilateral lower extremity DVT. Verify IVC filters. COMPARISON: CT abdomen and pelvis dated 06/28/2016 TECHNIQUE: KUB FINDINGS: 2. IVC filters are noted. The more superior filter is projecting upon the superior portion of the IVC partly intrahepatic at the level of T11-L1 vertebrae. This represents an interval placement compared to the prior CT scan. The more inferior filter was also seen on the prior examination projecting upon L2 to L3-L4 level. This is in stable position compared to the prior CT scan. Nonobstructive bowel gas pattern. Contrast is seen in the urinary bladder. IMPRESSION: 2 IVC filters as detailed. The superior filter demonstrates interval placement compared to CT abdomen and pelvis dated 06/28/2016.
[2016-09-02 20:33] LABS: ABSOLUTE BASOPHIL COUNT 0.1 /CUMM (0.0-0.2); ABSOLUTE EOSINOPHIL COUNT 0.1 /CUMM (0.0-0.7); ABSOLUTE GRANULOCYTE CT 11.6 /CUMM (1.4-6.5); ABSOLUTE LYMPH COUNT 4.6 /CUMM (1.2-3.4); BASOPHIL % 0.5 % (0.0-2.0); EOSINOPHIL % 0.8 % (0-5); HEMATOCRIT 29.3 % (37-47); MEAN CORPUSCULAR HGB CONC 32.2 G/DL (33.0-37.0); MEAN CORPUSCULAR VOLUME 83.7 FL (81.0-99.0); MEAN PLATELET VOLUME 10.6 FL (7.4-10.4); PLATELET COUNT 315 /CUMM (130-400); RBC DISTRIBUTION WIDTH 16.7 % (11.5-14.5); WHITE BLOOD CELL COUNT 17.4 /CUMM (4.8-10.8)
[2016-09-02 20:42] LABS: PTT 53 SEC (25-37)
--- NOTE | 2016-09-03 00:24 | NUR ---
LATE ENTRY: PT 54. BOLUS 3600UNITS+0.72ML, INCREASED OLD RATE (29.6MLS/HR) BY 3.6. NEW RATE= 33.2MLS/HR. NEXT PT 09/03/16 @0400. NEXT NURSE AWARE.
[2016-09-03 01:05] VITALS: BP 100/68
[2016-09-03 04:47] LABS: ABSOLUTE BASOPHIL COUNT 0 /CUMM (0.0-0.2); ABSOLUTE EOSINOPHIL COUNT 0.2 /CUMM (0.0-0.7); ABSOLUTE GRANULOCYTE CT 8.2 /CUMM (1.4-6.5); ABSOLUTE LYMPH COUNT 6.2 /CUMM (1.2-3.4); ABSOLUTE MONOCYTE COUNT 1.3 /CUMM (0.10-0.60); BASOPHIL % 0 % (0.0-2.0); EOSINOPHIL % 1.4 % (0-5); GRANULOCYTE % 51.7 % (42.2-75.2); HEMATOCRIT 31.6 % (37-47); MEAN CORPUSCULAR HGB 26.4 PG (27.0-31.0); MEAN CORPUSCULAR HGB CONC 31.5 G/DL (33.0-37.0); MEAN CORPUSCULAR VOLUME 83.5 FL (81.0-99.0); MEAN PLATELET VOLUME 8.8 FL (7.4-10.4); PLATELET COUNT 342 /CUMM (130-400); RBC DISTRIBUTION WIDTH 16.8 % (11.5-14.5); RED BLOOD CELL CT 3.78 /CUMM (4.20-5.40); WHITE BLOOD CELL COUNT 15.9 /CUMM (4.8-10.8)
[2016-09-03 04:52] LABS: PT 11.7 SEC (9.4-12.5)
[2016-09-03 05:30] LABS: PTT 80 SEC (25-37)
[2016-09-03 07:50] VITALS: BP 110/80
--- NOTE | 2016-09-03 09:10 | PN- Diabetes ---
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 She was originally treated with oral medications but recently began insulin. In addition, she has a history of antiphospholipid syndrome and is status post pulmonary embolus and placement of an IV filter in February of 2016. She also has a history of hypertension and hyperlipidemia. She was admitted for LE swelling. She was put on Levemir 12 units twice a day, Novolog coverage before meals and Novolog coverage ar bedtime. Her FSGs were 306, 184, 298, 290 and 215. Plan: 1. increase Levemir to 15 units twice a day; 2. adjust Novolog coverage before meals--detail see the inpatient DM order; 3. continue the current Novolog coverage at bedtime; 4. monitor FSGs. will follow. Inpatient Diabetes Orders Before Each Meal: Bolus Insulin: Novolog < 80 mg/dl: no coverage 80-100 mg/dl: 6 units 101-120 mg/dl: 6 units 121-150 mg/dl: 6 units 151-200 mg/dl: 7 units 201-250 mg/dl: 8 units 251-300 mg/dl: 9 units 301-350 mg/dl: 10 units 351-400 mg/dl: 11 units > 400 mg/dl: 12 units Subjective Subjective: She still complains of pain and swelling on her LE. she is on heparin drip. Objective Last 24 Hrs of Vital Signs/I&O Vital Signs Date Time Temp Pulse Resp B/P Pulse O2 O2 Flow FiO2 Ox Delivery Rate 09/03 0844 112/70 09/03 0750 97.2 81 20 110/80 100 Nasal 2.5L Cannula 09/03 0105 98.1 92 18 100/68 96 Nasal Cannula 09/02 1622 98.7 95 20 102/58 95 Nasal 2.0L Cannula 09/02 1421 Nasal 2.0L Cannula 09/02 1000 88 106/60 Intake & Output 09/03 1600 09/03 0800 09/03 0000 Intake Total 260 1036.8 Output Total Balance 260 1036.8 Intake, IV 160 236.8 Intake, Oral 100 800 Number 0 Bowel Movements Findings Pertinent Lab/Manny Results: Laboratory Tests 09/03 09/02 0420 1855 Chemistry Sodium (137 - 145 mmol/L) 136 L Potassium (3.5 - 5.1 mmol/L) 4.2 Chloride (98 - 107 mmol/L) 102 Carbon Dioxide (22 - 30 mmol/L) 25 Anion Gap (5 - 16) 10 BUN (7 - 17 mg/dL) 12 Creatinine (0.5 - 1.0 mg/dL) 0.5 Estimated GFR (>60 ml/min) > 60 BUN/Creatinine Ratio (7 - 25 %) 24.0 Coagulation PT (9.4 - 12.5 SEC) 11.7 INR (0.90 - 1.19) 1.12 APTT (25 - 37 SEC) 80 H 53 H Hematology CBC w Diff NO MAN DIFF REQ NO MAN DIFF REQ WBC (4.8 - 10.8 /CUMM) 15.9 H 17.4 H RBC (4.20 - 5.40 /CUMM) 3.78 L 3.50 L Hgb (12.0 - 16.0 G/DL) 10.0 L 9.4 L Hct (37 - 47 %) 31.6 L 29.3 L MCV (81.0 - 99.0 FL) 83.5 83.7 MCH (27.0 - 31.0 PG) 26.4 L 27.0 RDW (11.5 - 14.5 %) 16.8 H 16.7 H Plt Count (130 - 400 /CUMM) 342 315 MPV (7.4 - 10.4 FL) 8.8 10.6 H Gran % (42.2 - 75.2 %) 51.7 67.0 Lymphocytes % (20.5 - 51.1 %) 38.8 26.2 Monocytes % (1.7 - 9.3 %) 8.1 5.5 Eosinophils % (0 - 5 %) 1.4 0.8 Basophils % (0.0 - 2.0 %) 0 L 0.5 Absolute Granulocytes (1.4 - 6.5 /CUMM) 8.2 H 11.6 H Absolute Lymphocytes (1.2 - 3.4 /CUMM) 6.2 H 4.6 H Absolute Monocytes (0.10 - 0.60 /CUMM) 1.3 H 1.0 H Absolute Eosinophils (0.0 - 0.7 /CUMM) 0.2 0.1 Absolute Basophils (0.0 - 0.2 /CUMM) 0 0.1 PUBS MCHC (33.0 - 37.0 G/DL) 31.5 L 32.2 L 09/02 1015 Chemistry Troponin I (< 0.11 ng/ml) < 0.01 Coagulation APTT (25 - 37 SEC) 45 H
--- NOTE | 2016-09-03 09:25 | PN- Housestaff ---
DON WALLER,MIKAELA 09/03/16 0925: Subjective Follow-up For: Recurrent DVT with PE Complaints: measurement shortness of Breath Tele-Events Since Last Visit: Normal sinus rhythm, heart rate between 79-96, no any overnight events Subjective: Patient is seen and examined at the bedside. She is having mild shortness of breath. She denies any chest pain, palpitation, abdominal pain, diarrhea. We discussed about her thromboses in the both legs and over line of management. Review of Systems Constitutional: Denies: no symptoms. EENTM: Denies: no symptoms. Cardiovascular: Reports: peripheral edema. Denies: chest pain, edema, orthopena, palpitations. Respiratory: Reports: short of breath. Gastrointestinal: Denies: abdominal pain, bloating, constipation, diarrhea. Genitourinary: Denies: discharge, dysuria. Musculoskeletal: Reports: back pain. Skin: Reports: erythema. Neurological/Psychological: Denies: no symptoms. Objective Last 24 Hrs of Vital Signs/I&O Vital Signs Date Time Temp Pulse Resp B/P Pulse O2 O2 Flow FiO2 Ox Delivery Rate 09/03 1621 97.5 89 20 106/58 94 Nasal 2.0L Cannula 09/03 1600 94 Nasal 2.0L Cannula 09/03 0844 112/70 09/03 0800 94 Nasal 2.0L Cannula 09/03 0750 97.2 81 20 110/80 100 Nasal 2.5L Cannula 09/03 0105 98.1 92 18 100/68 96 Nasal Cannula Intake & Output 09/03 1600 09/03 0800 09/03 0000 Intake Total 350 708 7004.8 Output Total Balance 349 683 7560.8 Intake, IV 265 160 236.8 Intake, Oral 680 100 800 Number 0 Bowel Movements Physical Exam General Appearance: Alert, Oriented X3, Cooperative Skin: bilateral lower extremity edema HEENT: Atraumatic, PERRLA, EOMI Neck: Supple, No JVD Cardiovascular: Normal S1, Normal S2 Lungs: Clear to Auscultation Abdomen: Soft Neurological: Normal Speech Extremities: bilateral lower extremity edema with mild tenderness Assessment/Plan Assessment: Ms. 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 Daigle, we can switch it to Lovenox twice a day * We'll continue antiplatelets * We will also get all the records from [facility] * We'll follow the hematology recommendation * We will elevate and decompression of both lower extremities by wrapping both legs from foot to the upper thigh with Kerlix and Luis M bandages * We'll continue all home medication * We will check the blood sugar level 3 times a day and the bedtime and adjust according to the NovoLog sliding-scale * We will continue injection Levemir 15 units twice a day * Diet-heart healthy diet * DVT prophylaxis-ALP S/heparin * CODE STATUS-full code Problem List: 1. DVT of leg (deep venous thrombosis) 2. Chronic anticoagulation 3. Low back pain 4. Diabetes 5. Hypertension 6. Pulmonary embolism Pain Ratin Pain Location: Back and both lower legs Pain Goal: Remain pain free Pain Plan: Mild to moderate Tomorrow's Labs & Rationales: cbc,bep DVT/Prophylaxis: mechanical, pharmacological JONATHAN REYES MD 09/03/16 8636: Attending MD Review Statement Attending Statement Attending MD Statement: examined this patient, discuss w/resident/PA/ANIMAL TRAINER, agreed w/resident/PA/ANIMAL TRAINER, reviewed EMR data (avail) Attending Assessment/Plan: Patient still with bilateral leg pain. Will continue heparin drip, place wraps as outlined by vascular, follow vascular surgery recommendations, seek consultation from hematology. Continue pain control.
--- NOTE | 2016-09-03 11:26 | Cons- Vascular Surgery ---
General Information and HPI Consulting Request Date of Consult: 09/03/16 Requested By: KEEGAN IRELAND M.D Reason for Consult: Bilateral lower extremity DVT Source of Information: patient, old records History of Present Illness: Agree with PA note 09/02. Briefly Ms. 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 The patient states she was in her normal state of health until 08/29/2016 when after waking up in the a.m. she fell after missing a step. The patient states that she landed on her left side. She denies any loss of consciousness and states this was merely a mechanical fall. Since the 08/29, the patient has had increasing worsening pain in the left lower extremity. She has had a hard time with her ADLs. She has taken Flexeril for symptomatic relief. She also recently had a secondary IVC filter placed due to thrombosis of her primary IVC filter. She is on once a day Lovenox. Allergies/Medications Allergies: Coded Allergies: adhesive (Mild, RASH 02/12/16) latex (UNKNOWN 02/12/16) Home Med List: Albuterol Sulfate (Proair Hfa) 0.09 MG/Actuation LEOBARDO 2 PUFF INH PRN ASTHMA ( Reported) Duloxetine HCl 60 MG CAPSULE.DR 1 CAP PO DAILY MENTAL HEALTH (Reported) Enoxaparin Sodium (Lovenox) 150 MG/ML SYRINGE 150 MG SC DAILY BLOOD THINNER ( Reported) Gabapentin (Neurontin) 300 MG CAPSULE 1 CAP PO TID NEUROPATHY (Reported) Insulin Aspart, Recombinant (Novolog Flexpen) 100 UNIT/1 ML INSULN.PEN DIABETES (Reported) Insulin Glargine,Hum.rec.anlog (Toujeo Solostar) 300 UNIT/ML (1.5 ML) INSULN.PEN 40 UNITS SC QHS DM (Reported) Lisinopril 5 MG TABLET 1 TAB PO DAILY HTN (Reported) Simvastatin (Simvastatin*) 40 MG TABLET 1 TAB PO QPM HLP (Reported) Simvastatin (Simvastatin*) 5 MG TABLET 1 TAB PO DAILY CHOLESTEROL (Reported) Current Medications: Current Medications Sig/Omero Start time Last Medication Dose Route Stop Time Status Admin Acetaminophen 650 MG Q6P PRN 09/02 0530 AC PO Albuterol Sulfate 2 PUF Q4P PRN 09/02 0415 AC INH Aspirin 81 MG DAILY 09/02 1000 AC 09/03 PO 0844 Atorvastatin Calcium 40 MG 1700 09/02 1700 AC 09/02 PO 1649 Duloxetine HCl 60 MG DAILY 09/02 1000 AC 09/03 PO 0844 Gabapentin 300 MG TID 09/02 1000 AC 09/03 PO 0844 Heparin Sodium 5,000 UNIT .STK-MED ONE 09/02 2231 DC (Porcine) IV 09/02 223 Heparin Sodium 3,600 UNIT ONCE ONE 09/02 2230 DC 09/02 (Porcine) IV 09/02 2231 2237 Heparin Sodium 3,600 UNIT ONCE ONE 09/02 1245 DC 09/02 (Porcine) IV 09/02 1246 1314 Heparin Sodium 25,000 UNIT Q24H 09/02 0230 AC 09/02 (Porcine) IV 2237 Sodium Chloride 500 ML Insulin Aspart 0 AT BEDTIME 09/02 2200 AC 09/02 LA 2147 Insulin Aspart 0 TIDAC 09/02 1200 AC 09/03 SC 0844 Insulin Detemir 15 UNITS BID 09/03 1000 AC SC Insulin Detemir 12 UNITS BID 09/02 2200 DC 09/03 SC 0845 Insulin Detemir 24 UNITS DAILY 09/02 1000 DC 09/02 LA 1001 Insulin Human Regular 0 Q6 09/02 0615 DC 09/02 SC 0724 Lisinopril 5 MG DAILY 09/02 1000 AC 09/03 PO 0844 Morphine Sulfate 2 MG Q4P PRN 09/02 0530 DC 09/02 IV 1326 Oxycodone/ 2 TAB Q6P PRN 09/02 1800 AC 09/03 Acetaminophen PO 0423 Tramadol HCl 50 MG Q6PRN PRN 09/02 0415 AC 09/03 PO 0844 Past History Medical History Neurological: migraine EENT: allergies, sinusitis Cardiovascular: hypertension, hyperlipidemia Respiratory: asthma, pulmonary embolism (recurrent. 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 FATHER (hypertension, diabetes mellitus). Psychosocial History Where Do You Live? Home Who Do You Live With? spouse, child, Male PArtner Services at Home: None Primary Language: Yoruba, Mohawk Smoking Status: Never Smoked ETOH Use: denies use Illicit Drug Use: denies illicit drug use Functional Ability ADLs Independent: dressing, eating, toileting, bathing. Ambulation: independent IADLs Independent: shopping, housework, finances, food prep, telephone, transportation , medication admin. Employment History Employment: Unemployed Review of Systems Review of Systems: Patient reports bilateral lower extreme pain and discomfort in addition to swelling of both lower extremities. He also has intermittent shortness of breath related to her asthma Exam & Diagnostic Data Vital Signs and I&O Vital Signs Date Time Temp Pulse Resp B/P Pulse O2 O2 Flow FiO2 Ox Delivery Rate 09/03 0844 112/70 09/03 0800 94 Nasal 2.0L Cannula 09/03 0750 97.2 81 20 110/80 100 Nasal 2.5L Cannula 09/03 0105 98.1 92 18 100/68 96 Nasal Cannula 09/02 1622 98.7 95 20 102/58 95 Nasal 2.0L Cannula 09/02 1421 Nasal 2.0L Cannula Intake & Output 09/03 1600 09/03 0800 09/03 0000 09/02 1600 09/02 0800 09/02 0000 Intake Total 260 1036.8 935 2000 Output Total Balance 260 1036.8 935 1999 Intake, IV 160 236.8 215 1999 Intake, Oral 100 800 720 Number 0 Bowel Movements Patient 198 lb Weight Physical Exam: Bilateral lower extremity is her well-perfused. She has adequate motor and sensory sensation. It is no evidence of phlegmasia. She does have swelling in both lower extremities right slightly worse than the left now. There is no evidence of compartment syndrome. Physical Exam General Appearance: well developed/nourished, no apparent distress, alert, awake , comfortable, obese Extremities: normal inspection, normal capillary refill, swelling, tenderness Assessment/Plan Assessment/Plan 36-year-old female with a hypercoagulable disorder and recent mechanical fall. This may have delayed her anticoagulation or due to her positioning for significant thrombosis. 1.) Recommend continue heparin drip for now 2.) Recommend hematologic consult--patient may require twice a day dosing of Lovenox 3.) Continue elevation and compression of both lower extremities to help with swelling--would wrap both legs from the foot to the upper thigh with Kerlix and Luis M bandages 4.) Continue care as per medicine 5.) Cont. antiplatelet in addition to heparin 6.) Patient would be high risk for thrombolysis/mechanical thrombectomy due to multiple medical conditions--we'll discuss with primary team--will attempt symptomatic relief first with compression 7.) Please acquire all records from [facility] as patient has most of her care there due to her significant medical comorbidities 8.) Patient has two IVC filters and this should protect her from further major pulmonary emboli Consult Acknowledgment - Thank you for your consult request.
[2016-09-03 16:21] VITALS: BP 106/58
--- NOTE | 2016-09-03 17:00 | NUR ---
NURSING NOTE; PT'S LEGS WRAPPED WITH CECI BANDAGE FROM FOOT TO THIGHS ORDERED. PT C/O OF LEGS BEING ITCHY AND REQUESTED FOR WRAPS TO BE REMOVED. ATTEMPTED TO RE-WRAP LATER AND PT REQUESTED FOR THEM TO BE DONE IN THE AM.
[2016-09-03 17:54] LABS: PTT 59 SEC (25-37)
[2016-09-04 00:07] VITALS: BP 100/60
[2016-09-04 01:25] LABS: PTT 79 SEC (25-37)
[2016-09-04 08:20] LABS: ABSOLUTE BASOPHIL COUNT 0.1 /CUMM (0.0-0.2); ABSOLUTE EOSINOPHIL COUNT 0.3 /CUMM (0.0-0.7); ABSOLUTE GRANULOCYTE CT 8.3 /CUMM (1.4-6.5); ABSOLUTE LYMPH COUNT 5.5 /CUMM (1.2-3.4); ABSOLUTE MONOCYTE COUNT 1.2 /CUMM (0.10-0.60); BASOPHIL % 0.8 % (0.0-2.0); EOSINOPHIL % 1.6 % (0-5); GRANULOCYTE % 53.6 % (42.2-75.2); HEMATOCRIT 30.2 % (37-47); MEAN CORPUSCULAR HGB 26.6 PG (27.0-31.0); MEAN CORPUSCULAR HGB CONC 31.6 G/DL (33.0-37.0); MEAN CORPUSCULAR VOLUME 84.3 FL (81.0-99.0); MEAN PLATELET VOLUME 10.1 FL (7.4-10.4); PLATELET COUNT 396 /CUMM (130-400); RBC DISTRIBUTION WIDTH 17.5 % (11.5-14.5); RED BLOOD CELL CT 3.58 /CUMM (4.20-5.40); WHITE BLOOD CELL COUNT 15.4 /CUMM (4.8-10.8)
--- NOTE | 2016-09-04 08:25 | PN- Housestaff ---
ALIRIO WALLER,[facility] 09/04/16 0825: Subjective Follow-up For: Bilateral lower extremity DVT Mechanical fall Tele-Events Since Last Visit: Patient is off monitor Subjective: Patient was seen and examined this morning, she still complaining of severe pain 11 out of 10 bilateral lower extremity, pain improved slightly with Percocet. She denied any shortness of breath, chest pain, palpitation. She is saturating well on 2 L oxygen above 95%. She denied any abdominal pain, nausea or vomiting , last bowel movement was on , no urinary symptoms. Patient didn't want to wear compression stockings because of excruciating pain. We've faxed the [facility] for all the records since July 2015 to present. Review of Systems Constitutional: Reports: see HPI. Objective Last 24 Hrs of Vital Signs/I&O Vital Signs Date Time Temp Pulse Resp B/P Pulse O2 O2 Flow FiO2 Ox Delivery Rate 09/04 1616 98.2 105 20 124/70 95 Nasal 2.0L Cannula 09/04 0846 98.0 92 20 106/62 98 Nasal 2.0L Cannula 09/04 0816 102/66 09/04 0800 95 Nasal 2.0L Cannula 09/04 0007 98.1 94 20 100/60 94 Nasal 2.0L Cannula 09/04 0000 Nasal 2.0L Cannula Intake & Output 09/04 1600 09/04 0800 09/04 0000 Intake Total 464 680 Output Total Balance 464 680 Intake, IV 264 Intake, Oral 200 680 Number 0 Bowel Movements Physical Exam General Appearance: Alert, Oriented X3, Cooperative, No Acute Distress Skin: No Rashes HEENT: Atraumatic, PERRLA, EOMI, Mucous Membr. moist/pink Cardiovascular: Regular Rate, Normal S1, Normal S2, No Murmurs Lungs: Clear to Auscultation, Normal Air Movement Abdomen: Normal Bowel Sounds, Soft, hypo-gastric mild tenderness Neurological: Normal Speech, Strength at 5/5 X4 Ext, Normal Tone, Sensation Intact, Cranial Nerves 3-12 NL, Reflexes 2+ Extremities: No Clubbing, No Cyanosis, No Edema, Normal Pulses, by lateral lower extremity diffuse tenderness on palpation Assessment/Plan Assessment: Ms. Jaimes is 36-year-old female with past medical history significant for diabetes, recurrent pulmonary embolus S/P thrombectomy 2008 and IVF filter 2015 with last admission PE February 2016, antiphospholipid antibody syndrome/lupus anticoagulants (on lovenox), asthma on home oxygen 2 L, anemia, hypertension, hyperlipidemia, chronic back pain , partial pancreatectomy and splenectomy ( benign tumor of pancreas), depression and GERD, presented with chief complain left flank and lower extremty pain. #Bilateral extensive DVT -History of recent mechanical fall with excruciating left lower extremity pain -Lower extremity Doppler scan revealed FINDINGS: On the right, the deep venous system is partially occluded with noncompressible thrombus extending from the upper portion of the popliteal vein into the common femoral vein. Decreased Doppler flow is noted in this region with no color signal whatsoever. Some calf veins are patent. On the left, there are areas of noncompressibility are also present from the upper popliteal vein extending into the common femoral vein with decreased Doppler flow and no color signal in some areas. There is no Ku's cyst. IMPRESSION: Evidence of bilateral DVT from the region of the popliteal veins extending up to the common femoral veins bilaterally. -Continue IV heparin -Patient has IVF, a second IVF was placed because of thrombosis over the primary one -Vascular consultation was obtained, recommendation elevate and decompression of both lower extremities by wrapping both legs from foot to the upper thigh with Kerlix and Luis M bandages -Patient refused lower extremity bandages because of excruciating pain -Recommendation to change the dose of Lovenox to twice a day upon discharge -Hematology consultation was placed, pending -We'll obtain records from [facility] -Patient failed PT session because of excruciating pain of bilateral lower extremity #Diabetes mellitus -Patient had elevated glucose level of 5-8 upon admission, no anion gap -Endocrinology consultation was obtained, will follow recommendation -Increase Levemir to 20 units twice a day -Adjustment of the before meals sliding scale and bedtime were made # Hypertension -Lisinopril 5 milligrams daily -Continue atorvastatin 40 mg daily #History Depression and Anxiety -Continue duloxetine 90 mg and gabapentin 300 mg 3 times a day by mouth # History of sleep disturbance. -Hold medications any sedating medications trazodone DVT prophylaxis heparin IV Diet CC2 Code full Consultation cardiology, vascular, heme oncology, endocrine Problem List: 1. DVT of leg (deep venous thrombosis) Pain Ratin Pain Location: Bilateral lower extremity Pain Goal: Pain 4 or less Pain Plan: Severe pain pathway Tomorrow's Labs & Rationales: CBC, CMP, magnesium, phosphorus JONATHAN REYES MD 09/04/16 1210: Attending MD Review Statement Attending Statement Attending MD Statement: examined this patient, discuss w/resident/PA/CONSULAR OFFICER, agreed w/resident/PA/CONSULAR OFFICER, reviewed EMR data (avail) Attending Assessment/Plan: Continues to have leg pain, which is slightly improved today. Glucose levels continue to be elevated. Hemodynamically stable. No chest pain, palpitations, or altered mental status. Labs reviewed. Plan - Continue leg wrappings - Follow endocrine recommendations for insulin changes - Continue heparin drip - Follow vascular and hematology recommendations - Continue pain control - Continue home medications
[2016-09-04 08:46] VITALS: BP 106/62
--- NOTE | 2016-09-04 09:00 | PN- Diabetes ---
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 She was originally treated with oral medications but recently began insulin. In addition, she has a history of antiphospholipid syndrome and is status post pulmonary embolus and placement of an IV filter in February of 2016. She also has a history of hypertension and hyperlipidemia. She was admitted for LE swelling. Levemir was increased to 15 units twice a day; Novolog coverage before meals was adjusted on 09/03. In addition, she is on Novolog coverage ar bedtime. Her FSGs were 215, 353, 284, 261 and 263. Plan: 1. increase Levemir to 20 units twice a day; 2. adjust Novolog coverage before meals again;detail see the inpatient DM order. 3. continue the current Novolog coverage at bedtime; 4. monitor FSGs. will follow. Inpatient Diabetes Orders Before Each Meal: Bolus Insulin: Novolog < 80 mg/dl: no coverage 80-100 mg/dl: 6 units 101-120 mg/dl: 6 units 121-150 mg/dl: 6 units 151-200 mg/dl: 8 units 201-250 mg/dl: 10 units 251-300 mg/dl: 12 units 301-350 mg/dl: 14 units 351-400 mg/dl: 16 units > 400 mg/dl: 18 units Subjective Subjective: She still has swelling and pain on her LE. Objective Last 24 Hrs of Vital Signs/I&O Vital Signs Date Time Temp Pulse Resp B/P Pulse O2 O2 Flow FiO2 Ox Delivery Rate 09/04 0846 98.0 92 20 106/62 98 Nasal 2.0L Cannula 09/04 0816 102/66 09/04 0007 98.1 94 20 100/60 94 Nasal 2.0L Cannula 09/04 0000 Nasal 2.0L Cannula 09/03 1621 97.5 89 20 106/58 94 Nasal 2.0L Cannula 09/03 1600 94 Nasal 2.0L Cannula Intake & Output 09/04 1600 09/04 0800 09/04 0000 Intake Total 464 680 Output Total Balance 464 680 Intake, IV 264 Intake, Oral 200 680 Number 0 Bowel Movements Findings Pertinent Lab/Manny Results: Laboratory Tests 09/04 09/04 09/03 0640 0050 1700 Chemistry Sodium (137 - 145 mmol/L) 133 L Potassium (3.5 - 5.1 mmol/L) 4.5 Chloride (98 - 107 mmol/L) 99 Carbon Dioxide (22 - 30 mmol/L) 25 Anion Gap (5 - 16) 8 BUN (7 - 17 mg/dL) 11 Creatinine (0.5 - 1.0 mg/dL) 0.5 Estimated GFR (>60 ml/min) > 60 BUN/Creatinine Ratio (7 - 25 %) 22.0 Magnesium (1.6 - 2.3 mg/dL) 1.2 L Coagulation APTT (25 - 37 SEC) 79 H 59 H Hematology CBC w Diff Pending WBC Pending RBC Pending Hgb Pending Hct Pending MCV Pending MCH Pending RDW Pending Plt Count Pending MPV Pending PUBS MCHC Pending
--- NOTE | 2016-09-04 11:43 | NUR ---
PT ORDERED TO HAVE B/L CECI WRAPS FROM TOES TO THIGHS. PT REFUSING X MULTIPLE ATTEMPTS D/T TOO MUCH PAIN. EXPLAINED REASONING FOR COMPRESSION. WILL ATTEMPT ONCE PAIN RELIEVED.
--- NOTE | 2016-09-04 11:51 | PN- Cardiology ---
Subjective Subjective: The patient complains of lower kidney discomfort. No chest pain. No shortness of breath. No palpitations. No diaphoresis. Objective Vital Signs and I&Os Vital Signs Date Time Temp Pulse Resp B/P Pulse O2 O2 Flow FiO2 Ox Delivery Rate 09/04 0846 98.0 92 20 106/62 98 Nasal 2.0L Cannula 09/04 0816 102/66 09/04 0800 95 Nasal 2.0L Cannula 09/04 0007 98.1 94 20 100/60 94 Nasal 2.0L Cannula 09/04 0000 Nasal 2.0L Cannula 09/03 1621 97.5 89 20 106/58 94 Nasal 2.0L Cannula 09/03 1600 94 Nasal 2.0L Cannula Intake & Output 09/04 1600 09/04 0800 09/04 0000 09/03 1600 09/03 0800 09/03 0000 Intake Total 464 680 128 105 8363.8 Output Total Balance 464 680 090 094 8514.8 Intake, IV 264 265 160 236.8 Intake, Oral 200 680 680 100 800 Number 0 0 Bowel Movements Physical Exam: Gen: NAD HEENT: normal Lungs: clear to auscultation, normal resp. effort Heart: RRR, S1, S2, no murmurs Abdomen: Soft, nontender, no masses Extremities: 1+ edema Neuro: Alert and oriented x 3, cranial nerves intact Current Medications: Current Medications Sig/Omero Start time Last Medication Dose Route Stop Time Status Admin Acetaminophen 650 MG Q6P PRN 09/02 0530 AC PO Albuterol Sulfate 2 PUF Q4P PRN 09/02 0415 AC INH Aspirin 81 MG DAILY 09/02 1000 AC 09/04 PO 0816 Atorvastatin Calcium 40 MG 1700 09/02 1700 AC 09/03 PO 1731 Duloxetine HCl 60 MG DAILY 09/02 1000 AC 09/04 PO 0816 Gabapentin 300 MG TID 09/02 1000 AC 09/04 PO 0815 Heparin Sodium 3,600 UNIT ONE ONE 09/03 1850 DC 09/03 (Porcine) IV 09/03 185 1850 Heparin Sodium 25,000 UNIT Q24H 09/02 0230 AC 09/03 (Porcine) IV 1515 Sodium Chloride 500 ML Insulin Aspart 0 AT BEDTIME 09/02 2200 AC 09/03 SC 2225 Insulin Aspart 0 TIDAC 09/02 1200 AC 09/04 SC 0816 Insulin Detemir 20 UNITS BID 09/04 1000 AC SC Insulin Detemir 15 UNITS BID 09/03 1000 DC 09/04 SC 0816 Lisinopril 5 MG DAILY 09/02 1000 AC 09/04 PO 0816 Oxycodone/ 2 TAB Q6P PRN 09/02 1800 AC 09/04 Acetaminophen PO 0815 Tramadol HCl 50 MG Q6PRN PRN 09/02 0415 AC 09/03 PO 1737 Results Last 48 Hrs of Labs/Mics: Laboratory Tests 09/04/16 0640: Anion Gap 8, Estimated GFR > 60, BUN/Creatinine Ratio 22.0, Magnesium 1.2 L, CBC w Diff NO MAN DIFF REQ, RBC 3.58 L, MCV 84.3, MCH 26.6 L, RDW 17.5 H, MPV 10.1, Gran % 53.6, Lymphocytes % 35.9, Monocytes % 8.1, Eosinophils % 1.6, Basophils % 0.8, Absolute Granulocytes 8.3 H, Absolute Lymphocytes 5.5 H, Absolute Monocytes 1.2 H, Absolute Eosinophils 0.3, Absolute Basophils 0.1, PUBS MCHC 31.6 L 09/04/16 0050: APTT 79 H 09/03/16 1700: APTT 59 H 09/03/16 0420: Anion Gap 10, Estimated GFR > 60, BUN/Creatinine Ratio 24.0, PT 11.7, INR 1.12, APTT 80 H, CBC w Diff NO MAN DIFF REQ, RBC 3.78 L, MCV 83.5, MCH 26.4 L, RDW 16.8 H, MPV 8.8, Gran % 51.7, Lymphocytes % 38.8, Monocytes % 8.1, Eosinophils % 1.4, Basophils % 0 L, Absolute Granulocytes 8.2 H, Absolute Lymphocytes 6.2 H, Absolute Monocytes 1.3 H, Absolute Eosinophils 0.2, Absolute Basophils 0, PUBS MCHC 31.5 L 09/02/16 1855: APTT 53 H, CBC w Diff NO MAN DIFF REQ, RBC 3.50 L, MCV 83.7, MCH 27.0, RDW 16.7 H, MPV 10.6 H, Gran % 67.0, Lymphocytes % 26.2, Monocytes % 5.5, Eosinophils % 0.8, Basophils % 0.5, Absolute Granulocytes 11.6 H, Absolute Lymphocytes 4.6 H, Absolute Monocytes 1.0 H, Absolute Eosinophils 0.1, Absolute Basophils 0.1, PUBS MCHC 32.2 L Recent Imaging Studies: Echocardiogram 09/02/16: Normal left ventricular size, wall thickness and systolic function with no obvious regional wall motion abnormalities. The left atrium is normal in size. Mild thickening/calcification of the mitral valve leaflets. No mitral regurgitation. Structurally normal aortic valve without significant sclerosis or stenosis. Mild tricuspid regurgitation. Right ventricular systolic pressure estimated to be elevated at 50- 55 mmHg. Moderate pulmonary hypertension. The right ventricle is mildly dilated. Compared to the echocardiogram of 03/10/2016 pulmonary artery pressures slightly decreased on the current study Assessment/Plan Assessment/Plan Assessment: 1. Antiphospholipid antibody syndrome 2. Diabetes mellitus 3. Hypertension 4. History of recurrent pulmonary emboli 5. Acute deep vein thrombosis 6. IVC filter in place 7. Moderate pulmonary hypertension on echocardiogram, slightly improved from previous echocardiogram Plan: * Continue IV heparin * Hematology consult pending regarding management of long-term anticoagulation * Continue other cardiac medications. Continue telemetry? Not applicable
[2016-09-04 15:07] LABS: PTT 46 SEC (25-37)
[2016-09-04 16:16] VITALS: BP 124/70
[2016-09-04 23:53] LABS: PTT 60 SEC (25-37)
[2016-09-05 00:51] VITALS: BP 112/78
--- NOTE | 2016-09-05 07:16 | PN- Housestaff ---
ALIRIO WALLER,[facility] 09/05/16 0716: Subjective Follow-up For: Bilateral lower extremity DVT Mechanical fall Tele-Events Since Last Visit: Patient is off the monitor Subjective: Patient was seen and examined this morning, she still complaining of severe pain and had lower extremity 11 out of 10, the pain is more when she ambulates. She denied any chest pain, shortness of breath, she is on 2 L oxygen with saturation 96%, denied cough, dizziness. She complained of lower abdominal pain, denied nausea or vomiting, still didn't have any bowel movement since last despite the bowel regimen. She denied any urinary symptoms. Review of Systems Constitutional: Reports: see HPI. Objective Last 24 Hrs of Vital Signs/I&O Vital Signs Date Time Temp Pulse Resp B/P Pulse O2 O2 Flow FiO2 Ox Delivery Rate 09/05 0930 Nasal 2.0L Cannula 09/05 08 97.5 96 20 104/68 96 Nasal Cannula 09/05 0051 98.3 109 20 112/78 94 Nasal Cannula 09/05 0000 Nasal 2.0L Cannula 09/04 1616 98.2 105 20 124/70 95 Nasal 2.0L Cannula 09/04 1600 95 Nasal 2.0L Cannula Intake & Output 09/05 1600 09/05 0800 09/05 0000 Intake Total 340 1104 Output Total Balance 340 1104 Intake, IV 340 304 Intake, Oral 800 Number 0 Bowel Movements Physical Exam General Appearance: Alert, Oriented X3, Cooperative, No Acute Distress Skin: No Rashes, No Breakdown, No Significant Lesion HEENT: Atraumatic, PERRLA, EOMI, Mucous Membr. moist/pink Neck: Supple Cardiovascular: Regular Rate, Normal S1, Normal S2, No Murmurs Lungs: Clear to Auscultation, Normal Air Movement Abdomen: Normal Bowel Sounds, Soft, mild tenderness on palpation at suprapubic, right and left supra iliac regions. no skin changes Neurological: Normal Gait, Normal Speech, Strength at 5/5 X4 Ext, Normal Tone, Sensation Intact, Cranial Nerves 3-12 NL, Reflexes 2+ Extremities: No Clubbing, No Cyanosis, No Edema, Normal Pulses, bilateral lower extermities wrapped in compression bandages Assessment/Plan Assessment: Ms. 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 #Bilateral extensive DVT -History of recent mechanical fall with excruciating left lower extremity pain -Lower extremity Doppler scan revealed FINDINGS: On the right, the deep venous system is partially occluded with noncompressible thrombus extending from the upper portion of the popliteal vein into the common femoral vein. Decreased Doppler flow is noted in this region with no color signal whatsoever. Some calf veins are patent. On the left, there are areas of noncompressibility are also present from the upper popliteal vein extending into the common femoral vein with decreased Doppler flow and no color signal in some areas. There is no Ku's cyst. IMPRESSION: Evidence of bilateral DVT from the region of the popliteal veins extending up to the common femoral veins bilaterally. -Continue IV heparin -Patient has 2 IVF, a second IVF was placed because of thrombosis over the primary one -Vascular consultation was obtained, recommendation elevate and decompression of both lower extremities by wrapping both legs from foot to the upper thigh with Kerlix and Luis M bandages or swelling relief. Vascular signed off today -Hematology consultation was obtained, Dr. Moon is her primary chain mortiser operator. Discussions around the anticoagulation agent upon discharge is in progress. -Patient's record from [facility] was obtained, lupus anticoagulant is positive, PTT prolongation, anticardiolipin antibody negative, factor V Leiden mutation negative, prothrombin G to a mutation negative, protein C high, protein S within normal, plasminogen activity high, alpha-2 antiplasmin negative , von Willebrand factor negative. #Diabetes mellitus -Patient had elevated glucose level of 508 upon admission, no anion gap -Endocrinology consultation was obtained, will follow recommendation -Increase Levemir to 26 units twice a day -Continue NovoLog sliding scale before meals sliding scale and bedtime were made # Hypertension -Lisinopril 5 milligrams daily -Continue atorvastatin 40 mg daily #History Depression and Anxiety -Continue duloxetine 90 mg and gabapentin 300 mg 3 times a day by mouth # History of sleep disturbance. -Hold medications any sedating medications trazodone DVT prophylaxis heparin IV Diet CC2 Code full Consultation cardiology, vascular, heme oncology, endocrine Problem List: 1. DVT of leg (deep venous thrombosis) 2. Hx of deep venous thrombosis 3. Diabetes 4. Hypertension 5. Hyperlipidemia Pain Ratin Pain Location: bilateral lower extremity Pain Goal: Pain 4 or less Pain Plan: Percocet 2 tablets every 6 for severe pain, breakthrough tramadol 50 every 6 when necessary Tomorrow's Labs & Rationales: None DANITA IRELAND MDMARGOBRENDA 09/05/16 1210: Attending MD Review Statement Attending Statement Attending MD Statement: examined this patient, discuss w/resident/PA/INDUSTRIAL RELATIONS WORKER, agreed w/resident/PA/INDUSTRIAL RELATIONS WORKER, reviewed EMR data (avail), discussed with nursing, discussed with case mgmt, amended to note Attending Assessment/Plan: Patient seen and examined. Lying in bed and not in acute distress at rest. She reports significant bilateral rigidity pain with ambulation. His was discussed with the vascular surgery service. On account of her comorbidities and extensive nature of her clots, recommendation from [place] surgery service is to continue anticoagulation therapy as thrombolyzes/thrombectomy is more likely to result in complications for her. At this stage the only option left for is to place and Lovenox 1 mg by KG twice daily. The once daily dosing of Lovenox 1.5 mg correct KG will bring her Lovenox dose to 175 mg daily. She however was increased to 150 mg daily as an outpatient her hematology service. She states that she was never on twice daily dosing at home. Her blood glucose levels are currently not optimally controlled. She has a markedly elevated A1c of about 13. Recommendations by the endocrinology service appreciated. Recommendations: -Follow-up with a hematology service regarding long-term outpatient anticoagulation therapy. -Mobilize patient as tolerated. -Continue pain control with Percocet. Optimize use of tramadol as well for breakthrough pain. -Patient reports no bowel movement in several days. She complains of low abdominal pain. We'll optimize her bowel regimen. We'll check bladder scan to ensure that she is not retaining urine as well. -Anticipate discharge home once her consolidation therapy is confirmed with the hematology service.
--- NOTE | 2016-09-05 07:36 | PN- Diabetes ---
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 She was originally treated with oral medications but recently began insulin. In addition, she has a history of antiphospholipid syndrome and is status post pulmonary embolus and placement of an IV filter in February of 2016. She also has a history of hypertension and hyperlipidemia. She was admitted for LE swelling. She has been found to have bilateral DVT. Levemir was increased to 20 units twice a day; Novolog coverage before meals was adjusted to begin with 6 units for 80-150.The patients blood sugar this morning is 279. The patient states that metformin bothers her stomach and she does not tolerate it. Plan: Suggest increase Levemir to 26 units twice a day. Continue present sliding scale NovoLog. Subjective Subjective: Still has pain in legs Review of Systems Constitutional: Denies: chills, fever. Cardiovascular: Denies: chest pain. Respiratory: Denies: cough, short of breath. Gastrointestinal: Denies: abdominal pain. Genitourinary: Denies: dysuria. Objective Last 24 Hrs of Vital Signs/I&O Vital Signs Date Time Temp Pulse Resp B/P Pulse O2 O2 Flow FiO2 Ox Delivery Rate 09/05 0051 98.3 109 20 112/78 94 Nasal Cannula 09/05 0000 Nasal 2.0L Cannula 09/046 98.2 105 20 124/70 95 Nasal 2.0L Cannula 09/04 1600 95 Nasal 2.0L Cannula 09/04 0846 98.0 92 20 106/62 98 Nasal 2.0L Cannula 09/04 0816 09/04 0800 95 Nasal 2.0L Cannula Intake & Output 09/05 0800 09/05 0000 09/04 1600 Intake Total 1104 Output Total Balance 1104 Intake, IV 304 Intake, Oral 800 Number 0 Bowel Movements Vital Signs Date Time Temp Pulse Resp B/P Pulse O2 O2 Flow FiO2 Ox Delivery Rate 09/05 0051 98.3 109 20 112/78 94 Nasal Cannula 09/05 0000 Nasal 2.0L Cannula 09/04 1616 98.2 105 20 124/70 95 Nasal 2.0L Cannula 09/04 1600 95 Nasal 2.0L Cannula 09/04 0846 98.0 92 20 106/62 98 Nasal 2.0L Cannula 09/04 0816 102/66 09/04 0800 95 Nasal 2.0L Cannula Intake & Output 09/05 0800 09/05 0000 09/04 1600 Intake Total 1104 Output Total Balance 1104 Intake, IV 304 Intake, Oral 800 Number 0 Bowel Movements Physical Exam General Appearance: no apparent distress, alert, awake, obese Head: normal appearance Neck: normal inspection Respiratory: normal breath sounds Cardiovascular: regular rate/rhythm Extremities: both legs are wrapped Skin: intact Current Medications: Current Medications Sig/Omero Start time Last Medication Dose Route Stop Time Status Admin Acetaminophen 650 MG Q6P PRN 09/02 0530 AC PO Albuterol Sulfate 2 PUF Q4P PRN 09/02 0415 AC INH Aspirin 81 MG DAILY 09/02 1000 AC 09/04 PO 0816 Atorvastatin Calcium 40 MG 1700 09/02 1700 AC 09/04 PO 1617 Docusate Sodium 100 MG DAILY NEEDED PRN 09/04 1730 AC PO Duloxetine HCl 60 MG DAILY 09/02 1000 AC 09/04 PO 0816 Gabapentin 300 MG TID 09/02 1000 AC 09/04 PO 2200 Heparin Sodium 3,600 UNIT ONCE ONE 09/05 0130 DC 09/05 (Porcine) IV 09/05 0131 0130 Heparin Sodium 3,600 UNIT ONE ONE 09/04 1700 DC 09/04 (Porcine) IV 09/04 1800 1724 Heparin Sodium 25,000 UNIT Q24H 09/02 0230 AC 09/05 (Porcine) IV 0618 Sodium Chloride 500 ML Insulin Aspart 0 AT BEDTIME 09/02 2200 AC 09/04 SC 2200 Insulin Aspart 0 TIDAC 09/02 1200 AC 09/04 SC 1704 Insulin Detemir 20 UNITS BID 09/04 1000 AC 09/04 SC 2200 Insulin Detemir 15 UNITS BID 09/03 1000 DC 09/04 SC 0816 Lisinopril 5 MG DAILY 09/02 1000 AC 09/04 PO 0816 Magnesium Oxide 400 MG ONE ONE 09/04 1530 DC 09/04 PO 09/04 1531 1914 Magnesium Oxide 400 MG ONE ONE 09/04 1415 DC 09/04 PO 09/04 1416 1611 Oxycodone/ 2 TAB Q6P PRN 09/02 1800 AC 09/05 Acetaminophen PO 0622 Polyethylene Glycol 17 GM DAILY 09/04 1716 AC 09/04 PO 2200 Senna 187 MG AT BEDTIME 09/04 2200 AC 09/04 PO 2200 Tramadol HCl 50 MG Q6PRN PRN 09/02 0415 AC 09/03 PO 1737 Findings Pertinent Lab/Manny Results: Laboratory Tests 09/04 09/04 2320 1446 Coagulation APTT (25 - 37 SEC) 60 H 46 H
[2016-09-05 08:13] VITALS: BP 104/68
--- NOTE | 2016-09-05 08:13 | Cons- Hematology ---
General Information and HPI Consulting Request Date of Consult: 09/05/16 Requested By: KEEGAN IRELAND M.D History of Present Illness: 36-year-old woman well known to me with hypercoagulability manifested by recurrent unprovoked pulmonary emboli. The specific hypercoagulable state has not been fully elucidated. Patient has had documented thromboses both on warfarin and Eliquis. She is now admitted with bilateral leg pain documented DVT. Currently the patient denies shortness of breath cough chest pain or hemoptysis. Patient does have [address] She was currently being treated with aspirin and once a day Lovenox. She was last seen by Dr. Rajiv Gonzalez at [place] Allergies/Medications Allergies: Coded Allergies: adhesive (Mild, RASH 02/12/16) latex (UNKNOWN 02/12/16) Home Med List: Albuterol Sulfate (Proair Hfa) 0.09 MG/Actuation LEOBARDO 2 PUFF INH PRN ASTHMA ( Reported) Duloxetine HCl 60 MG CAPSULE. 1 CAP PO DAILY MENTAL HEALTH (Reported) Enoxaparin Sodium (Lovenox) 150 MG/ML SYRINGE 150 MG SC DAILY BLOOD THINNER ( Reported) Gabapentin (Neurontin) 300 MG CAPSULE 1 CAP PO TID NEUROPATHY (Reported) Insulin Aspart, Recombinant (Novolog Flexpen) 100 UNIT/1 ML INSULN.PEN DIABETES (Reported) Insulin Glargine,Hum.rec.anlog (Toujeo Solostar) 300 UNIT/ML (1.5 ML) INSULN.PEN 40 UNITS SC QHS DM (Reported) Lisinopril 5 MG TABLET 1 TAB PO DAILY HTN (Reported) Simvastatin (Simvastatin*) 40 MG TABLET 1 TAB PO QPM HLP (Reported) Simvastatin (Simvastatin*) 5 MG TABLET 1 TAB PO DAILY CHOLESTEROL (Reported) Current Medications: Current Medications Sig/Omero Start time Last Medication Dose Route Stop Time Status Admin Acetaminophen 650 MG Q6P PRN 09/02 0530 AC PO Albuterol Sulfate 2 PUF Q4P PRN 09/02 0415 AC INH Aspirin 81 MG DAILY 09/02 1000 AC 09/04 PO 0816 Atorvastatin Calcium 40 MG 1700 09/02 1700 AC 09/04 PO 1617 Docusate Sodium 100 MG DAILY NEEDED PRN 09/04 1730 AC PO Duloxetine HCl 60 MG DAILY 09/02 1000 AC 09/04 PO 0816 Gabapentin 300 MG TID 09/02 1000 AC 09/04 PO 2200 Heparin Sodium 3,600 UNIT ONCE ONE 09/05 0130 DC 09/05 (Porcine) IV 09/05 0131 0130 Heparin Sodium 3,600 UNIT ONE ONE 09/04 1700 DC 09/04 (Porcine) IV 09/04 1800 1724 Heparin Sodium 25,000 UNIT Q24H 09/02 0230 AC 09/05 (Porcine) IV 0618 Sodium Chloride 500 ML Insulin Aspart 0 AT BEDTIME 09/02 2200 AC 09/04 SC 2200 Insulin Aspart 0 TIDAC 09/02 1200 AC 09/04 SC 1704 Insulin Detemir 20 UNITS BID 09/04 1000 AC 09/04 SC 2200 Insulin Detemir 15 UNITS BID 09/03 1000 DC 09/04 SC 0816 Lisinopril 5 MG DAILY 09/02 1000 AC 09/04 PO 0816 Magnesium Oxide 400 MG ONE ONE 09/04 1530 DC 09/04 PO 09/04 1531 1914 Magnesium Oxide 400 MG ONE ONE 09/04 1415 DC 09/04 PO 09/04 1416 1611 Oxycodone/ 2 TAB Q6P PRN 09/02 1800 AC 09/05 Acetaminophen PO 0622 Polyethylene Glycol 17 GM DAILY 09/04 1716 AC 09/04 PO 2200 Senna 187 MG AT BEDTIME 09/04 2200 AC 09/04 PO 2200 Tramadol HCl 50 MG Q6PRN PRN 09/02 0415 AC 09/03 PO 1737 Review of Systems Review of Systems: Patient denies headaches or dizziness. Patient denies nausea vomiting diarrhea change in bowel habits. Patient denies dysuria hematuria. She denies focal neurologic deficit Past History Travel History Traveled to [place] past 21 day No Medical History Neurological: migraine EENT: allergies, sinusitis Cardiovascular: hypertension, hyperlipidemia Respiratory: asthma, pulmonary embolism (recurrent. on coumadin) Gastrointestinal: s/p partial pancreatectomy Hepatic: NONE Renal: nephrolithiasis Musculoskeletal: costochondritis Psychiatric: depression Endocrine: diabetes Blood Disorders: anemia Cancer(s): NONE PROGRAM DIRECTOR/TRAFFIC DIRECTOR/Reproductive: NONE Other Medical Hx: Lupus anticoagulant and antiphospholipid antibody syndrome Sepsis Surgical History Surgical History: tubal ligation history of massive PE with clot removal excision of a pancreatic tumor splenectomy partial pancreatectomy for benign tumor TUMOR REMOVAL FROM PANCREAS Family History Relations & Conditions If Any: MOTHER (hypertension, diabetes mellitus). FATHER (hypertension, diabetes mellitus). Psychosocial History Where Do You Live? Home Who Do You Live With? spouse, child, Male PArtner Services at Home: None Primary Language: Maldivian, Romansh Smoking Status: Never Smoked ETOH Use: denies use Illicit Drug Use: denies illicit drug use Functional Ability ADLs Independent: dressing, eating, toileting, bathing. Ambulation: independent IADLs Independent: shopping, housework, finances, food prep, telephone, transportation , medication admin. Employment History Employment: Unemployed Exam & Diagnostic Data Vital Signs and I&O Vital Signs Date Time Temp Pulse Resp B/P Pulse O2 O2 Flow FiO2 Ox Delivery Rate 09/05 0051 98.3 109 20 112/78 94 Nasal Cannula 09/05 0000 Nasal 2.0L Cannula 09/04 1616 98.2 105 20 124/70 95 Nasal 2.0L Cannula 09/04 1600 95 Nasal 2.0L Cannula 09/04 0846 98.0 92 20 106/62 98 Nasal 2.0L Cannula 09/04 0816 102/66 Intake & Output 09/05 1600 09/05 0800 09/05 0000 Intake Total 1104 Output Total Balance 1104 Intake, IV 304 Intake, Oral 800 Number 0 Bowel Movements Gen.: in NAD ENT: Sclera anicteric Chest: Normal respiratory effort, clear breath sounds Cor: RRR, no extra sounds Abdomen: Soft, bowel sounds present, no tenderness, no rebound Extremities: Both lower extremities were wrapped Neurology: Alert and oriented 3, no gross deficit Skin: No rashes Last 48 Hours of Lab Results: Laboratory Tests 09/05 09/04 09/04 09/04 0735 2320 1446 0640 Chemistry Sodium (137 - 145 mmol/L) Pending 133 L Potassium (3.5 - 5.1 mmol/L) Pending 4.5 Chloride (98 - 107 mmol/L) Pending 99 Carbon Dioxide (22 - 30 mmol/L) Pending 25 Anion Gap (5 - 16) Pending 8 BUN (7 - 17 mg/dL) Pending 11 Creatinine (0.5 - 1.0 mg/dL) Pending 0.5 Estimated GFR (>60 ml/min) > 60 BUN/Creatinine Ratio (7 - 25 %) Pending 22.0 Phosphorus Pending Magnesium (1.6 - 2.3 mg/dL) Pending 1.2 L Coagulation APTT (25 - 37 SEC) Pending 60 H 46 H Hematology CBC w Diff Pending NO MAN DIFF REQ WBC (4.8 - 10.8 /CUMM) Pending 15.4 H RBC (4.20 - 5.40 /CUMM) Pending 3.58 L Hgb (12.0 - 16.0 G/DL) Pending 9.5 L Hct (37 - 47 %) Pending 30.2 L MCV (81.0 - 99.0 FL) Pending 84.3 MCH (27.0 - 31.0 PG) Pending 26.6 L RDW (11.5 - 14.5 %) Pending 17.5 H Plt Count (130 - 400 /CUMM) Pending 396 MPV (7.4 - 10.4 FL) Pending 10.1 Gran % (42.2 - 75.2 %) 53.6 Lymphocytes % (20.5 - 51.1 %) 35.9 Monocytes % (1.7 - 9.3 %) 8.1 Eosinophils % (0 - 5 %) 1.6 Basophils % (0.0 - 2.0 %) 0.8 Absolute Granulocytes (1.4 - 6.5 /CUMM) 8.3 H Absolute Lymphocytes (1.2 - 3.4 /CUMM) 5.5 H Absolute Monocytes (0.10 - 0.60 /CUMM) 1.2 H Absolute Eosinophils (0.0 - 0.7 /CUMM) 0.3 Absolute Basophils (0.0 - 0.2 /CUMM) 0.1 PUBS MCHC (33.0 - 37.0 G/DL) Pending 31.6 L 09/04 09/03 0050 1700 Coagulation APTT (25 - 37 SEC) 79 H 59 H Imaging/Other Studies: Doppler-bilateral DVT Ultrasound lower extremity-significant arterial disease Assessment/Plan Assessment: Hypercoagulability-now with bilateral DVTs while on once a day Lovenox. Recommend- Continue IV heparin If the patient develops any cardiorespiratory complaints-CTA of chest Vascular surgery has seen patient-? Question thrombectomy ? Lysis I will be speaking to Dr. Gonzalez. There are very few alternatives given the fact she the patient has had documented thromboses while on warfarin,Eliquis and once a day Lovenox/ASA Recommendations: .. Consult Acknowledgment - Thank you for your consult request.
[2016-09-05 09:14] LABS: PTT 89 SEC (25-37)
[2016-09-05 09:18] LABS: WHITE BLOOD CELL COUNT 15.6 /CUMM (4.8-10.8)
--- NOTE | 2016-09-05 09:35 | PN- Cardiology ---
Subjective Subjective: The patient is stable from a cardiac standpoint. She is uncomfortable from leg pain only. She remains on IV heparin for her recurrent DVT and pulmonary embolus. She is off telemetry. Hematology will advise further anticoagulation recommendations. Objective Vital Signs and I&Os Vital Signs Date Time Temp Pulse Resp B/P Pulse O2 O2 Flow FiO2 Ox Delivery Rate 09/05 812 97.5 96 20 104/68 96 Nasal Cannula 09/05 0051 98.3 109 20 112/78 94 Nasal Cannula 09/05 0000 Nasal 2.0L Cannula 09/04 1616 98.2 105 20 124/70 95 Nasal 2.0L Cannula 09/04 1600 95 Nasal 2.0L Cannula Intake & Output 09/05 1600 09/05 0800 09/05 0000 09/04 1600 09/04 0800 09/04 0000 Intake Total 340 1104 464 680 Output Total Balance 340 1104 464 680 Intake, IV 340 304 264 Intake, Oral 800 200 680 Number 0 0 Bowel Movements Physical Exam: She is a little uncomfortable from pain in her legs. HEENT exam is normal Chest is clear Heart reveals regular rhythm and no murmurs Extremities now have compression wrappings Current Medications: Current Medications Sig/Omero Start time Last Medication Dose Route Stop Time Status Admin Acetaminophen 650 MG Q6P PRN 09/02 0530 AC PO Albuterol Sulfate 2 PUF Q4P PRN 09/02 0415 AC INH Aspirin 81 MG DAILY 09/02 1000 AC 09/05 PO 0908 Atorvastatin Calcium 40 MG 1700 09/02 1700 AC 09/04 PO 1617 Docusate Sodium 100 MG DAILY NEEDED PRN 09/04 1730 AC PO Duloxetine HCl 60 MG DAILY 09/02 1000 AC 09/05 PO 0906 Gabapentin 300 MG TID 09/02 1000 AC 09/05 PO 0906 Heparin Sodium 3,600 UNIT ONCE ONE 09/05 0130 DC 09/05 (Porcine) IV 09/05 0131 0130 Heparin Sodium 3,600 UNIT ONE ONE 09/04 1700 DC 09/04 (Porcine) IV 09/04 1800 1724 Heparin Sodium 25,000 UNIT Q24H 09/02 0230 AC 09/05 (Porcine) IV 0618 Sodium Chloride 500 ML Insulin Aspart 0 AT BEDTIME 09/02 2200 AC 09/04 SC 2200 Insulin Aspart 0 TIDAC 09/02 1200 AC 09/05 SC 0907 Insulin Detemir 26 UNITS BID 09/05 1000 AC 09/05 PA 0907 Insulin Detemir 20 UNITS BID 09/04 1000 DC 09/04 PA 2200 Lisinopril 5 MG DAILY 09/02 1000 AC 09/05 PO 0906 Magnesium Oxide 400 MG ONE ONE 09/04 1530 DC 09/04 PO 09/04 1531 1914 Magnesium Oxide 400 MG ONE ONE 09/04 1415 DC 09/04 PO 09/04 1416 1611 Oxycodone/ 2 TAB Q6P PRN 09/02 1800 AC 09/05 Acetaminophen PO 0622 Polyethylene Glycol 17 GM DAILY 09/04 1716 AC 09/05 PO 0906 Senna 187 MG AT BEDTIME 09/04 2200 AC 09/04 PO 2200 Tramadol HCl 50 MG Q6PRN PRN 09/02 0415 AC 09/03 PO 1737 Results Last 48 Hrs of Labs/Mics: Laboratory Tests 09/05/16 0735: Sodium Pending, Potassium Pending, Chloride Pending, Carbon Dioxide Pending, Anion Gap Pending, BUN Pending, Creatinine Pending, BUN/Creatinine Ratio Pending , Phosphorus Pending, Magnesium Pending, APTT 89 H, CBC w Diff Pending, WBC Pending, RBC Pending, Hgb Pending, Hct Pending, MCV Pending, MCH Pending, RDW Pending, Plt Count Pending, MPV Pending, Gran % Pending, Lymphocytes % Pending, Monocytes % Pending, Eosinophils % Pending, Basophils % Pending, Absolute Granulocytes Pending, Absolute Lymphocytes Pending, Absolute Monocytes Pending, Absolute Eosinophils Pending, Absolute Basophils Pending, PUBS MCHC Pending 09/04/16 2320: APTT 60 H 09/04/16 1446: APTT 46 H 09/04/16 0640: Anion Gap 8, Estimated GFR > 60, BUN/Creatinine Ratio 22.0, Magnesium 1.2 L, CBC w Diff NO MAN DIFF REQ, RBC 3.58 L, MCV 84.3, MCH 26.6 L, RDW 17.5 H, MPV 10.1, Gran % 53.6, Lymphocytes % 35.9, Monocytes % 8.1, Eosinophils % 1.6, Basophils % 0.8, Absolute Granulocytes 8.3 H, Absolute Lymphocytes 5.5 H, Absolute Monocytes 1.2 H, Absolute Eosinophils 0.3, Absolute Basophils 0.1, PUBS MCHC 31.6 L 09/04/16 0050: APTT 79 H 09/03/16 1700: APTT 59 H Assessment/Plan Assessment/Plan The patient is stable from a cardiac standpoint. She has residual pulmonary hypertension from her multiple pulmonary emboli. Vascular has not recommended any procedures for her DVT at this time. They did recommend compression of her legs which she has on. She does have two IVC filters in place. She will need lifelong anticoagulation. She has failed once daily subcutaneous Lovenox and may have to go on twice daily dosing. She is still on IV heparin and aspirin for anticoagulation. Hematology will further advise. Please call for any further cardiology input. Continue telemetry? Not applicable
[2016-09-05 09:48] LABS: HEMATOCRIT 30.5 % (37-47); MEAN CORPUSCULAR HGB 26.2 PG (27.0-31.0); MEAN CORPUSCULAR VOLUME 82.9 FL (81.0-99.0); RBC DISTRIBUTION WIDTH 17.1 % (11.5-14.5); RED BLOOD CELL CT 3.68 /CUMM (4.20-5.40)
[2016-09-05 09:49] LABS: MEAN PLATELET VOLUME 9.6 FL (7.4-10.4); PLATELET COUNT 422 /CUMM (130-400)
[2016-09-05 09:50] LABS: ABSOLUTE BASOPHIL COUNT 0.1 /CUMM (0.0-0.2); ABSOLUTE EOSINOPHIL COUNT 0.3 /CUMM (0.0-0.7); ABSOLUTE GRANULOCYTE CT 9.1 /CUMM (1.4-6.5); ABSOLUTE MONOCYTE COUNT 1.1 /CUMM (0.10-0.60); BASOPHIL % 0.5 % (0.0-2.0); EOSINOPHIL % 1.8 % (0-5); GRANULOCYTE % 58.3 % (42.2-75.2); MEAN CORPUSCULAR HGB CONC 31.6 G/DL (33.0-37.0)
--- NOTE | 2016-09-05 12:14 | PN- Vascular Surgery ---
Subjective Subjective: Complains of BL lower ext swelling Objective Vital Signs and I&Os Vital Signs Date Time Temp Pulse Resp B/P Pulse O2 O2 Flow FiO2 Ox Delivery Rate 09/05 0930 Nasal 2.0L Cannula 09/05 812 97.5 96 20 104/68 96 Nasal Cannula 09/05 0051 98.3 109 20 112/78 94 Nasal Cannula 09/05 0000 Nasal 2.0L Cannula 09/04 1616 98.2 105 20 124/70 95 Nasal 2.0L Cannula 09/04 1600 95 Nasal 2.0L Cannula Intake & Output 09/05 1600 09/05 0800 09/05 0000 09/04 1600 09/04 0809/04 0000 Intake Total 340 1104 464 680 Output Total Balance 340 1104 464 680 Intake, IV 340 304 264 Intake, Oral 800 200 680 Number 0 0 Bowel Movements Physical Exam: Legs are soft with moderate bilateral swelling, R>L No evidence of phlegmasia/tissue loss/malperfusion Assessment/Plan Assessment/Plan 36 yo F with multiple prior thromboses, having failed multiple anti-coagulation regimens. Now with bilateral LE DVT, and 2 IVC filters. I feel the risks outweigh the benefits for intervention on these DVTs due to multiple medical comorbidities, and high risk of rethrombosis/failure of the procedure. Recommend coordination with her [place] physicians and hematology for outpatient anti-coagulation regimen. We will sign off, please call with questions. Core Measures/Miscellaneous Venous Thromboembolism VTE Risk Factors: Previous VTE VTE Contraindications: No Contraindications VTE Prophylaxis Ordered Inpt: Pharm- Heparin VTE Diagnosis: Yes VTE Type: Pulmonary Embolism VTE Confirmed by (Test): NONE Beta Margoth Is Beta Margoth a Home Med? No (unknown) Antibiotics Is Patient on Antibiotics? No (Unknown)
[2016-09-05 15:33] VITALS: BP 120/68
--- NOTE | 2016-09-05 18:27 | Transfer of Care Summary ---
Hospital Course Course Hospital Course: Ms. 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 Upon admission Vital signs: Within normal limits CBC: WBC 20.8 with left shift no bandemia, hemoglobin 9.8/hematocrits 31.2, platelets 285; d-dimer 3234, sodium 131 (baseline), potassium 4.2 Dioxide 20, on a Gap 13, BUN 9, Creatinine 0.4, Glucose 528, Hemoglobin A1c 13.2, serum osmolarity 297, lactic acid 1.7 calcium 8.8 magnesium 1.1, elevated triglycerides and total cholesterol and cholesterol HDL ratio. CT scan w/ IV contrast of the LLE: Mild edema is also seen involving the sartorius and adductor longus muscles. This is a nonspecific finding and clinical correlation required for compartment syndrome. Patient was admitted to telemetry floor ([facility]) for the following problems #Bilateral extensive DVT -History of recent mechanical fall with excruciating left lower extremity pain -Lower extremity Doppler scan revealed FINDINGS: On the right, the deep venous system is partially occluded with noncompressible thrombus extending from the upper portion of the popliteal vein into the common femoral vein. Decreased Doppler flow is noted in this region with no color signal whatsoever. Some calf veins are patent. On the left, there are areas of noncompressibility are also present from the upper popliteal vein extending into the common femoral vein with decreased Doppler flow and no color signal in some areas. There is no Ku's cyst. IMPRESSION: Evidence of bilateral DVT from the region of the popliteal veins extending up to the common femoral veins bilaterally. -Continue IV heparin -Cardiology consultation given risk factors -Primary suspicion of compartment syndrome, surgical evaluation revealed no signs of compartment syndrome -Patient has 2 IVF, a second IVF was placed because of thrombosis over the primary one -Vascular consultation was obtained, recommendation elevate and decompression of both lower extremities by wrapping both legs from foot to the upper thigh with Kerlix and Luis M bandages or swelling relief. Vascular signed off -Patient's primary vascular surgeon is Dr. Strange, she will follow as an outpatient -Hematology consultation was obtained, Dr. Moon is her primary desolderer. Discussions around the anticoagulation agent upon discharge is still in progress. -Patient's records from [facility] were obtained, lupus anticoagulant is positive, PTT prolongation, anticardiolipin antibody negative, factor V Leiden mutation negative, prothrombin G to a mutation negative, protein C high, protein S within normal, plasminogen activity high, alpha-2 antiplasmin negative, von Willebrand factor negative. #Diabetes mellitus -Patient had elevated glucose level of 508 upon admission, no anion gap -Endocrinology consultation was obtained, will follow recommendation -Levemir to 26 units twice a day for better control -Continue NovoLog sliding scale before meals sliding scale and bedtime # Hypertension -Lisinopril 5 milligrams daily -Atorvastatin 40 mg daily #History Depression and Anxiety -Continue duloxetine 90 mg and gabapentin 300 mg 3 times a day by mouth # History of sleep disturbance. -Hold medications any sedating medications trazodone DVT prophylaxis heparin IV Diet CC2 Code full Consultation cardiology, vascular, heme oncology, endocrine, PT Assessment/Plan: Please see above
[2016-09-05] MEDS ORDERED: ASPIRIN81 M4 PO (18:29)
--- NOTE | 2016-09-05 18:32 | Patient Discharge Instructions ---
Discharge Instructions General Discharge Information Special Instructions: -Please follow-up with your primary care physician within 1 week after discharge -Please follow up with manager business process Dr. Kramer after discharge -Please follow up with application security engineer Dr. Moon after discharge -Please follow up with vascular surgeon Dr. Blakely after discharge -Please follow up with folder machine operator Dr. Balderas after discharge Acute Coronary Syndrome Inclusion Criteria At DC or during hospital stay patient has or had the following: ACS DIAGNOSIS No Discharge Core Measures Meds if any: Prescribed or Continued at Discharge Meds if any: NOT Prescribed or Continued at Discharge Congestive Heart Failure Inclusion Criteria At DC or during hospital stay patient has or had the following: CHF DIAGNOSIS No Discharge Core Measures Meds if any: Prescribed or Continued at Discharge Meds if any: NOT Prescribed or Continued at Discharge Cerebrovascular accident Inclusion Criteria At DC or during hospital stay patient has or had the following: CVA/TIA Diagnosis No Discharge Core Measures Meds if any: Prescribed or Continued at Discharge Meds if any: NOT Prescribed or Continued at Discharge Venous thromboembolism Inclusion Criteria VTE Diagnosis Yes VTE Type Deep Venous Thrombosis VTE Confirmed by (Test) EXT BILATERAL VENOUS DOPP Discharge Core Measures - Per Current guidelines, there needs to be overlap - treatment for the first 5 days of Warfarin therapy. - If discharged on Warfarin prior to 5 days of - overlap therapy, the patient will need to be - assessed for post discharge needs including - *Post discharge parental anticoagulation - *Warfarin and/or parental anticoagulation education - *Follow up date to check INR post discharge At least 5 days overlap therapy as Inpatient Yes Meds if any: Prescribed or Continued at Discharge Note: Overlap Therapy is Warfarin and Anticoagulant Meds if any: NOT Prescribed or Continued at Discharge
[2016-09-05 21:24] LABS: PTT 74 SEC (25-37)
[2016-09-05 22:53] VITALS: BP 120/80
--- NOTE | 2016-09-06 06:51 | PN- Hematology ---
Subjective Subjective: Persistent bilateral leg pain, no shortness of breath cough chest pain or hemoptysis Review of Systems: 12 point review of systems otherwise unremarkable Objective Vital Signs and I&Os Vital Signs Date Time Temp Pulse Resp B/P Pulse O2 O2 Flow FiO2 Ox Delivery Rate 09/06 0000 Nasal 2.0L Cannula 09/05 2253 97.7 97 20 120/80 94 Nasal Cannula 09/05 2145 Nasal 2.0L Cannula 09/05 1600 97 Nasal 2.0L Cannula 09/05 1533 98.1 118 20 120/68 96 Nasal 2.5L Cannula 09/05 0930 Nasal 2.0L Cannula 09/05 08 97.5 96 20 104/68 96 Nasal Cannula Intake & Output 09/06 0800 09/06 0000 09/05 1600 09/05 0800 09/05 0000 09/04 1600 Intake Total 343.2 282.9 130 614 1681 Output Total Balance 343.2 282.9 032 537 5356 Intake, IV 343.2 42.9 340 304 Intake, Oral 240 480 800 Number 0 Bowel Movements Gen.: in NAD ENT: Sclera anicteric Chest: Normal respiratory effort, decreased breath sounds Cor: RRR, no extra sounds Abdomen: Soft, bowel sounds present, no tenderness, no rebound Extremities: Without clubbing, cyanosis, Neurology: Alert and oriented 3, no gross deficit Current Medications: Current Medications Sig/Omero Start time Last Medication Dose Route Stop Time Status Admin Acetaminophen 650 MG Q6P PRN 09/02 0530 AC PO Albuterol Sulfate 2 PUF Q4P PRN 09/02 0415 AC INH Aspirin 81 MG DAILY 09/02 1000 AC 09/05 PO 0908 Atorvastatin Calcium 40 MG 1700 09/02 1700 AC 09/05 PO 1605 Bisacodyl 5 MG DAILY 09/05 1504 AC 09/05 PO 1729 Docusate Sodium 100 MG DAILY NEEDED PRN 09/04 1730 AC PO Duloxetine HCl 60 MG DAILY 09/02 1000 AC 09/05 PO 0906 Gabapentin 300 MG TID 09/02 1000 AC 09/05 PO 2121 Heparin Sodium 25,000 UNIT Q24H 09/02 0230 AC 09/05 (Porcine) IV 0618 Sodium Chloride 500 ML Insulin Aspart 0 AT BEDTIME 09/02 2200 AC 09/05 SC 2120 Insulin Aspart 0 TIDAC 09/02 1200 AC 09/05 SC 1730 Insulin Detemir 26 UNITS BID 09/05 1000 AC 09/05 SC 2121 Insulin Detemir 20 UNITS BID 09/04 1000 DC 09/04 SC 2200 Lisinopril 5 MG DAILY 09/02 1000 AC 09/05 PO 09 Magnesium Oxide 400 MG ONE ONE 09/05 1515 DC 09/05 PO 09/05 1516 1730 Oxycodone/ 2 TAB Q6P PRN 09/02 1800 AC 09/05 Acetaminophen PO 212 Polyethylene Glycol 17 GM DAILY 09/04 1716 AC 09/05 PO 09 Senna 187 MG AT BEDTIME 09/04 2200 AC 09/05 PO 212 Tramadol HCl 50 MG Q6PRN PRN 09/02 0415 AC 09/03 PO 1737 Results Last 24 Hours of Lab Results: Laboratory Tests 09/0535 Chemistry Sodium (137 - 145 mmol/L) 134 L Potassium (3.5 - 5.1 mmol/L) 4.4 Chloride (98 - 107 mmol/L) 98 Carbon Dioxide (22 - 30 mmol/L) 27 Anion Gap (5 - 16) 9 BUN (7 - 17 mg/dL) 9 Creatinine (0.5 - 1.0 mg/dL) 0.4 L Estimated GFR (>60 ml/min) > 60 BUN/Creatinine Ratio (7 - 25 %) 22.5 Phosphorus (2.5 - 4.5 mg/dL) 4.6 H Magnesium (1.6 - 2.3 mg/dL) 1.2 L Coagulation APTT (25 - 37 SEC) 74 H 89 H Hematology CBC w Diff NO MAN DIFF REQ WBC (4.8 - 10.8 /CUMM) 15.6 H RBC (4.20 - 5.40 /CUMM) 3.68 L Hgb (12.0 - 16.0 G/DL) 9.7 L Hct (37 - 47 %) 30.5 L MCV (81.0 - 99.0 FL) 82.9 MCH (27.0 - 31.0 PG) 26.2 L RDW (11.5 - 14.5 %) 17.1 H Plt Count (130 - 400 /CUMM) 422 H MPV (7.4 - 10.4 FL) 9.6 Gran % (42.2 - 75.2 %) 58.3 Lymphocytes % (20.5 - 51.1 %) 32.1 Monocytes % (1.7 - 9.3 %) 7.3 Eosinophils % (0 - 5 %) 1.8 Basophils % (0.0 - 2.0 %) 0.5 Absolute Granulocytes (1.4 - 6.5 /CUMM) 9.1 H Absolute Lymphocytes (1.2 - 3.4 /CUMM) 5.0 H Absolute Monocytes (0.10 - 0.60 /CUMM) 1.1 H Absolute Eosinophils (0.0 - 0.7 /CUMM) 0.3 Absolute Basophils (0.0 - 0.2 /CUMM) 0.1 PUBS MCHC (33.0 - 37.0 G/DL) 31.6 L Assessment/Plan Assessment/Recommendations: Thrombophilia- Recommend- Transition to Lovenox 1 mg/kg BID Continue aspirin Anti-XA levels to be drawn and if necessary Lovenox dosing to be adjusted Vascular surgery has recommended no intervention
[2016-09-06 06:58] VITALS: BP 124/84
--- NOTE | 2016-09-06 08:14 | PN- Housestaff ---
TOM WALLER,[facility] 09/06/16 0814: Subjective Follow-up For: Extensive bilateral DVT Elevated Blood sugars Complaints: pain scale (0-10) Subjective: I saw and examined the patient today morning. She is alert and oriented X3. She reports pain in her left lower extremity 11/10 intensity, otherwise no other concerns. She denies any fever, chills, abdominal pain. Able to tolerate food well. She reports complaince with her medications despite her elevated HbA1C and recurrent DVT while on lovenox. Review of Systems Constitutional: Reports: no symptoms, see HPI. EENTM: Reports: no symptoms. Cardiovascular: Reports: no symptoms. Musculoskeletal: Reports: muscle pain. Comments: ROS negative except the above Objective Last 24 Hrs of Vital Signs/I&O Vital Signs Date Time Temp Pulse Resp B/P Pulse O2 O2 Flow FiO2 Ox Delivery Rate 09/06 0658 97.6 100 20 124/84 93 Nasal 2.0L Cannula 09/06 0000 Nasal 2.0L Cannula 09/05 2253 97.7 97 20 120/80 94 Nasal Cannula 09/05 2145 Nasal 2.0L Cannula 09/05 1600 97 Nasal 2.0L Cannula 09/05 1533 98.1 118 20 120/68 96 Nasal 2.5L Cannula 09/05 0930 Nasal 2.0L Cannula Intake & Output 09/06 1600 09/06 0800 09/06 0000 Intake Total 343.2 282.9 Output Total Balance 343.2 282.9 Intake, IV 343.2 42.9 Intake, Oral 240 Physical Exam General Appearance: Alert, Oriented X3, Cooperative Skin: erythema over the lower extremities HEENT: Atraumatic, PERRLA Neck: Supple Cardiovascular: Regular Rate, Normal S1, Normal S2, No Murmurs Lungs: Clear to Auscultation, Normal Air Movement Abdomen: Normal Bowel Sounds, Soft, No Tenderness Extremities: No Clubbing, No Cyanosis, 3+ edema present over both the lower extremities Vascular: Pulses Symmetrical Current Medications: Current Medications Sig/Omero Start time Last Medication Dose Route Stop Time Status Admin Acetaminophen 650 MG Q6P PRN 09/02 0530 AC PO Albuterol Sulfate 2 PUF Q4P PRN 09/02 0415 AC INH Aspirin 81 MG DAILY 09/02 1000 AC 09/06 PO 0946 Atorvastatin Calcium 40 MG 1700 09/02 1700 AC 09/06 PO 1624 Bisacodyl 5 MG DAILY 09/05 1504 AC 09/06 PO 0949 Docusate Sodium 100 MG DAILY NEEDED PRN 09/04 1730 AC PO Duloxetine HCl 60 MG DAILY 09/02 1000 AC 09/06 PO 0946 Enoxaparin Sodium 90 MG BID 09/06 1000 AC 09/06 SC 0946 Gabapentin 300 MG TID 09/02 1000 AC 09/06 PO 1623 Heparin Sodium 25,000 UNIT Q24H 09/02 0230 DC 09/05 (Porcine) IV 0618 Sodium Chloride 500 ML Insulin Aspart 0 AT BEDTIME 09/02 2200 AC 09/05 SC 2120 Insulin Aspart 0 TIDAC 09/02 1200 AC 09/06 SC 1257 Insulin Detemir 32 UNITS BID 09/06 1000 AC 09/06 SC 0946 Insulin Detemir 26 UNITS BID 09/05 1000 DC 09/05 SC 2121 Lisinopril 5 MG DAILY 09/02 1000 AC 09/06 PO 0948 Magnesium Sulfate 1 GM Q2H 09/06 0900 DC 09/06 Dextrose/Water 100 ML IV 09/06 1259 1449 Oxycodone HCl 5 MG TIDPRN PRN 09/06 0900 AC 09/06 PO 1449 Oxycodone/ 2 TAB Q6P PRN 09/02 1800 DC 09/06 Acetaminophen PO 0746 Polyethylene Glycol 17 GM DAILY 09/04 1716 AC 09/06 PO 0946 Senna 187 MG AT BEDTIME 09/04 2200 AC 09/05 PO 2121 Tramadol HCl 50 MG Q6PRN PRN 09/02 0415 AC 09/06 PO 0945 Last 24 Hrs of Lab/Manny Results Last 24 Hrs of Labs/Mics: Laboratory Tests 09/06/16 0743: APTT 84 H 09/05/162021: APTT 74 H Orders Fingersticks (last 24 hrs): In 400's this morning. Lines/Diet/Fluids Fluids/Infusions: none Lines: peripheral lines Assessment/Plan Assessment: Ms. 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 #Bilateral extensive DVT * History of recent mechanical fall with excruciating left lower extremity pain * Lower extremity Doppler scan revealed - Evidence of bilateral DVT from the region of the popliteal veins extending up to the common femoral veins bilaterally. * Discontinued Heparin and started on Lovenox 1mg/kg BID (90mg BID) as per hematology recommendations ( on board) * Patient has 2 IVF, a second IVF was placed because of thrombosis over the primary one * Vascular consultation was obtained, recommendation elevate and decompression of both lower extremities by wrapping both legs from foot to the upper thigh with Kerlix and Luis M bandages or swelling relief. Denied any acute intervention and signed off for an eventual outpatient follow up. * Patient's record from [facility] was obtained, lupus anticoagulant is positive, PTT prolongation, anticardiolipin antibody negative, factor V Leiden mutation negative, prothrombin G to a mutation negative, protein C high, protein S within normal, plasminogen activity high, alpha-2 antiplasmin negative, von Willebrand factor negative. * Anti - XA levels are requested to evaluate any inhibitors in the blood. Uncontrolled Diabetes: * Patient had elevated glucose level of 508, HbA1C of 13 without any anion gap. * Her blood sugars this am in 400's, Her levemir increased to 32 BID, Increased sliding scale coverage before meals. * Patient is not following any steel burner outside. * Endo consulted - is on board. History of Hypertension * On Lisinopril 5 mg daily * Continue atorvastatin 40 mg daily (hyperlipidemia) History Depression and Anxiety * Continue duloxetine 90 mg and gabapentin 300 mg 3 times a day by mouth History of sleep disturbance. * Hold medications any sedating medications trazodone DVT prophylaxis * SC Lovenox Diet * CC2 Code Status * Full Code Consultation cardiology(signed off), vascular (signed off), heme oncology, endocrine. Problem List: 1. Diabetes 2. Hypertension 3. Asthma 4. Hyperlipidemia 5. GERD (gastroesophageal reflux disease) 6. Hyperglycemia 7. Leukocytosis 8. Chronic anticoagulation 9. Hx of deep venous thrombosis 10. DVT of leg (deep venous thrombosis) 11. Fall Pain Ratin Pain Location: left lower extremity Pain Goal: Pain 4 or less Pain Plan: Oxycodone 5mg TID PRN Tomorrow's Labs & Rationales: CBC to monitor Leukocytosis and platelet count Magnesium - low Mg levels (today 1.2) MARILIA KIMBROUGH MD 09/06/16 1127: Attending MD Review Statement Attending Statement Attending MD Statement: examined this patient, discuss w/resident/PA/INFORMATION LEAD, agreed w/resident/PA/INFORMATION LEAD, reviewed EMR data (avail), discussed with nursing, discussed with case mgmt, reviewed images, amended to note Attending Assessment/Plan: Patient seen and examined, still complains of excruciating pain in the bilateral lower extremities. Heparin was stopped today and she was started on Lovenox as recommended by Dr. Moon. 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 According to the patient she was compliant with her Lovenox. Vital Signs Date Time Temp Pulse Resp B/P Pulse O2 O2 Flow FiO2 Ox Delivery Rate 09/06 0948 80 124/78 09/06 0658 97.6 100 20 124/84 93 Nasal 2.0L Cannula 09/06 0000 Nasal 2.0L Cannula 09/05 2253 97.7 97 20 120/80 94 Nasal Cannula 09/05 2145 Nasal 2.0L Cannula 09/05 1600 97 Nasal 2.0L Cannula 09/05 1533 98.1 118 20 120/68 96 Nasal 2.5L Cannula on exam; aox3, nad. cv; s1,s2, rrr resp; clear abd; soft, nt, bs+ ext; 2+ edema b/l le. 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 According to the patient she was compliant with her Lovenox. She also has uncontrolled diabetes with hyperglycemia. Heparin was stopped today and patient was started on Lovenox as recommended by Dr. Inman. Patient was started on her home medicine oxycodone for pain management. She is also on tramadol. Patient was encouraged to get up and walk around. Insulin was adjusted by Dr. Balderas and her Levemir dose has been increased. Continue other current medications. Patient will follow-up with Dr. Rajiv Gonzalez at [facility] upon discharge. If blood sugars are under better control as well as pain well controlled and likely she can be discharged home tomorrow.
[2016-09-06 08:26] LABS: PTT 84 SEC (25-37)
--- NOTE | 2016-09-06 08:29 | PN- Diabetes ---
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 She was originally treated with oral medications but recently began insulin. In addition, she has a history of antiphospholipid syndrome and is status post pulmonary embolus and placement of an IV filter in February of 2016. She also has a history of hypertension and hyperlipidemia. She was admitted for LE swelling. She has been found to have bilateral DVT. The patient is presently on Levemir 26 units twice a day as well as sliding scale NovoLog starting with 8 units before meals. Her blood sugars however are running high. Plan: suggest increase the patient's Levemir to 32 units twice a day. We also need to increase the patient's sliding scale NovoLog before meals to 80-150 give 12 units NovoLog, 151-200 give 14 units NovoLog, 1-250 give 16 units NovoLog, 251- 300 give 18 units NovoLog, 301-350 give 20 units NovoLog, 351-400 give 22 units NovoLog. Bedtime sliding scale NovoLog should stay the same. Subjective Subjective: Complains of pain in legs Review of Systems Constitutional: Denies: chills, fever. Cardiovascular: Denies: chest pain. Respiratory: Denies: cough. Gastrointestinal: Denies: abdominal pain. Objective Last 24 Hrs of Vital Signs/I&O Vital Signs Date Time Temp Pulse Resp B/P Pulse O2 O2 Flow FiO2 Ox Delivery Rate 09/06 0948 80 124/09/06 0800 95 Nasal 2.0L Cannula 09/06 0658 97.6 100 20 12484 93 Nasal 2.0L Cannula 09/06 0000 Nasal 2.0L Cannula 09/05 2253 97.7 97 20 120/80 94 Nasal Cannula 09/05 2145 Nasal 2.0L Cannula Intake & Output 09/06 1600 09/06 0800 09/06 0000 Intake Total 950 343.2 282.9 Output Total Balance 950 343.2 282.9 Intake, IV 230 343.2 42.9 Intake, Oral 720 240 Vital Signs Date Time Temp Pulse Resp B/P Pulse O2 O2 Flow FiO2 Ox Delivery Rate 09/06 0948 80 124/78 09/06 0800 95 Nasal 2.0L Cannula 09/06 0658 97.6 100 20 124/84 93 Nasal 2.0L Cannula 09/06 0000 Nasal 2.0L Cannula 09/05 2253 97.7 97 20 120/80 94 Nasal Cannula 09/05 2145 Nasal 2.0L Cannula Intake & Output 09/06 1600 09/06 0800 09/06 0000 Intake Total 950 343.2 282.9 Output Total Balance 950 343.2 282.9 Intake, IV 230 343.2 42.9 Intake, Oral 720 240 Physical Exam General Appearance: alert, awake, anxious Head: normal appearance Neck: normal inspection Respiratory: normal breath sounds Cardiovascular: regular rate/rhythm Abdomen: normal bowel sounds Extremities: swelling (both legs) Skin: intact Current Medications: Current Medications Sig/Omero Start time Last Medication Dose Route Stop Time Status Admin Acetaminophen 650 MG Q6P PRN 09/02 0530 AC PO Albuterol Sulfate 2 PUF Q4P PRN 09/02 0415 AC INH Aspirin 81 MG DAILY 09/02 1000 AC 09/06 PO 0946 Atorvastatin Calcium 40 MG 1700 09/02 1700 AC 09/06 PO 1624 Bisacodyl 5 MG DAILY 09/05 1504 AC 09/06 PO 0949 Docusate Sodium 100 MG DAILY NEEDED PRN 09/04 1730 AC PO Duloxetine HCl 60 MG DAILY 09/02 1000 AC 09/06 PO 0946 Enoxaparin Sodium 90 MG BID 09/06 1000 AC 09/06 OR 0946 Gabapentin 300 MG TID 09/02 1000 AC 09/06 PO 1623 Heparin Sodium 25,000 UNIT Q24H 09/02 0230 DC 09/05 (Porcine) IV 0618 Sodium Chloride 500 ML Insulin Aspart 0 AT BEDTIME 09/02 2200 AC 09/05 OR 2120 Insulin Aspart 0 TIDAC 09/02 1200 AC 09/06 OR 1756 Insulin Detemir 32 UNITS BID 09/06 1000 AC 09/06 OR 0946 Insulin Detemir 26 UNITS BID 09/05 1000 DC 09/05 OR 2121 Lisinopril 5 MG DAILY 09/02 1000 AC 09/06 PO 0948 Magnesium Sulfate 1 GM Q2H 09/06 1645 AC 09/06 Dextrose/Water 100 ML IV 09/06 2044 1713 Magnesium Sulfate 1 GM Q2H 09/06 0900 DC 09/06 Dextrose/Water 100 ML IV 09/06 1259 1449 Oxycodone HCl 5 MG TIDPRN PRN 09/06 0900 AC 09/06 PO 1449 Oxycodone/ 2 TAB Q6P PRN 09/02 1800 DC 09/06 Acetaminophen PO 0746 Polyethylene Glycol 17 GM DAILY 09/04 1716 AC 09/06 PO 0946 Senna 187 MG AT BEDTIME 09/04 2200 AC 09/05 PO 2121 Tramadol HCl 50 MG Q6PRN PRN 09/02 0415 AC 09/06 PO 1823 Findings Pertinent Lab/Manny Results: Laboratory Tests 09/06 09/06 09/05 1815 0743 2022 Coagulation APTT (25 - 37 SEC) 84 H 74 H Miscellaneous Ref Lab Test Result Pending
[2016-09-06] MEDS ORDERED: OXYCODONE HCL5 M1 PO (08:52)
--- NOTE | 2016-09-06 17:15 | NUR ---
1400- PT CONTINUES TO REFUSE CECI WRAPS TO BLE. 1700- PER DR. JERONIMO FERNANDEZ, PT TO HAVE A TOTAL OF 4G OF MAGNESIUM IV BOLUS.
[2016-09-06] MEDS ORDERED: LEVEMIR100 UNIT/1 SC (19:26)
[2016-09-06] MEDS ORDERED: NOVOLOG100 UNIT/2 SC (19:43)
[2016-09-06 21:46] VITALS: BP 122/80
[2016-09-07 05:35] VITALS: BP 110/70
[2016-09-07 07:54] LABS: ABSOLUTE BASOPHIL COUNT 0.1 /CUMM (0.0-0.2); ABSOLUTE EOSINOPHIL COUNT 0.3 /CUMM (0.0-0.7); ABSOLUTE GRANULOCYTE CT 7.9 /CUMM (1.4-6.5); ABSOLUTE LYMPH COUNT 4.1 /CUMM (1.2-3.4); BASOPHIL % 0.6 % (0.0-2.0); EOSINOPHIL % 2.2 % (0-5); GRANULOCYTE % 59.1 % (42.2-75.2); HEMATOCRIT 30.6 % (37-47); MEAN CORPUSCULAR HGB 26.5 PG (27.0-31.0); MEAN CORPUSCULAR HGB CONC 31.9 G/DL (33.0-37.0); MEAN CORPUSCULAR VOLUME 83.3 FL (81.0-99.0); MEAN PLATELET VOLUME 9.2 FL (7.4-10.4); PLATELET COUNT 503 /CUMM (130-400); RBC DISTRIBUTION WIDTH 17.4 % (11.5-14.5); RED BLOOD CELL CT 3.67 /CUMM (4.20-5.40); WHITE BLOOD CELL COUNT 13.4 /CUMM (4.8-10.8)
--- NOTE | 2016-09-07 07:57 | PN- Diabetes ---
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 She was originally treated with oral medications but recently began insulin. In addition, she has a history of antiphospholipid syndrome and is status post pulmonary embolus and placement of an IV filter in February of 2016. She also has a history of hypertension and hyperlipidemia. She was admitted for LE swelling. She has been found to have bilateral DVT. The patient is presently on Levemir 32 units twice a day as well as sliding scale NovoLog starting with 8 units before meals. . The patient's blood sugar this morning is finally improved at 182. Plan: Suggest continue the present insulin regimen. Her blood sugars are finally beginning to improve. Subjective Subjective: Still has pain in the legs especially the left side Review of Systems Constitutional: Denies: chills, fever. Cardiovascular: Denies: chest pain. Respiratory: Reports: short of breath. Denies: cough. Gastrointestinal: Denies: abdominal pain. Musculoskeletal: Denies: no symptoms (painespecially "). Objective Last 24 Hrs of Vital Signs/I&O Vital Signs Date Time Temp Pulse Resp B/P Pulse O2 O2 Flow FiO2 Ox Delivery Rate 09/07 0535 97.6 87 20 110/70 94 Nasal 2.0L Cannula 09/07 0000 Nasal 2.0L Cannula 09/06 2145 97.9 98 20 122/80 95 Nasal Cannula 09/06 0948 80 124/78 09/06 0800 95 Nasal 2.0L Cannula Intake & Output 09/07 0800 09/07 0000 09/06 1600 Intake Total 210 950 Output Total Balance 210 950 Intake, IV 110 230 Intake, Oral 100 720 Vital Signs Date Time Temp Pulse Resp B/P Pulse O2 O2 Flow FiO2 Ox Delivery Rate 09/07 0535 97.6 87 20 110/70 94 Nasal 2.0L Cannula 09/07 0000 Nasal 2.0L Cannula 09/06 2145 97.9 98 20 122/80 95 Nasal Cannula 09/06 0948 80 124/78 09/06 0800 95 Nasal 2.0L Cannula Intake & Output 09/07 0800 09/07 0000 09/06 1600 Intake Total 210 950 Output Total Balance 210 950 Intake, IV 110 230 Intake, Oral 100 720 Physical Exam General Appearance: alert, awake Neck: normal inspection Respiratory: normal breath sounds Cardiovascular: regular rate/rhythm Extremities: swelling (both legs) Current Medications: Current Medications Sig/Omero Start time Last Medication Dose Route Stop Time Status Admin Acetaminophen 650 MG Q6P PRN 09/02 0530 AC PO Albuterol Sulfate 2 PUF Q4P PRN 09/02 0415 AC INH Aspirin 81 MG DAILY 09/02 1000 AC 09/06 PO 0946 Atorvastatin Calcium 40 MG 1700 09/02 1700 AC 09/06 PO 1624 Bisacodyl 5 MG DAILY 09/05 1504 AC 09/06 PO 0949 Docusate Sodium 100 MG DAILY NEEDED PRN 09/04 1730 AC PO Duloxetine HCl 60 MG DAILY 09/02 1000 AC 09/06 PO 0946 Enoxaparin Sodium 90 MG BID 09/06 1000 AC 09/06 SC 2157 Gabapentin 300 MG TID 09/02 1000 AC 09/06 PO 2150 Heparin Sodium 25,000 UNIT Q24H 09/02 0230 DC 09/05 (Porcine) IV 0618 Sodium Chloride 500 ML Insulin Aspart 0 AT BEDTIME 09/02 2200 AC 09/06 [place] 2157 Insulin Aspart 0 TIDAC 09/02 1200 AC 09/06 [place] 1756 Insulin Detemir 32 UNITS BID 09/06 1000 AC 09/06 [place] 2158 Insulin Detemir 26 UNITS BID 09/05 1000 DC 09/05 [place] 2121 Lisinopril 5 MG DAILY 09/02 1000 AC 09/06 PO 0948 Magnesium Sulfate 1 GM Q2H 09/06 1645 DC 09/06 Dextrose/Water 100 ML IV 09/06 2044 1933 Magnesium Sulfate 1 GM Q2H 09/06 0900 DC 09/06 Dextrose/Water 100 ML IV 09/06 1259 1449 Oxycodone HCl 5 MG TIDPRN PRN 09/06 0900 AC 09/06 PO 2149 Oxycodone/ 2 TAB ONCE ONE 09/07 0100 DC 09/07 Acetaminophen PO 09/07 0101 0113 Oxycodone/ 2 TAB Q6P PRN 09/02 1800 DC 09/06 Acetaminophen PO 0746 Polyethylene Glycol 17 GM DAILY 09/04 1716 AC 09/06 PO 0946 Senna 187 MG AT BEDTIME 09/04 2200 AC 09/06 PO 2149 Tramadol HCl 50 MG Q6PRN PRN 09/02 0415 AC 09/07 PO 0039 Findings Pertinent Lab/Manny Results: Laboratory Tests 09/07 09/06 0615 1815 Chemistry Magnesium Pending Hematology CBC w Diff Pending WBC Pending RBC Pending Hgb Pending Hct Pending MCV Pending MCH Pending RDW Pending Plt Count Pending MPV Pending Gran % Pending Lymphocytes % Pending Monocytes % Pending Eosinophils % Pending Basophils % Pending Absolute Granulocytes Pending Absolute Lymphocytes Pending Absolute Monocytes Pending Absolute Eosinophils Pending Absolute Basophils Pending PUBS MCHC Pending Miscellaneous Ref Lab Test Result Pending
--- NOTE | 2016-09-07 08:09 | PN- Housestaff ---
TOM WALLER,JERONIMO 09/07/16 0806: Subjective Follow-up For: Extensive bilateral DVT Hyperglycemia Subjective: I saw and examined the patient today morning. She is alert and oriented X3, reports pain in her left leg 10/10, not radiating, achy better with percocet overnight. Otherwise denies any chest pain, shortness of breath. Review of Systems Constitutional: Reports: see HPI. EENTM: Reports: see HPI. Musculoskeletal: Reports: muscle pain, muscle stiffness. Comments: ROS negative except the above. Objective Last 24 Hrs of Vital Signs/I&O Vital Signs Date Time Temp Pulse Resp B/P Pulse O2 O2 Flow FiO2 Ox Delivery Rate 09/07 0535 97.6 87 20 110/70 94 Nasal 2.0L Cannula 09/07 0000 Nasal 2.0L Cannula 09/06 2146 97.9 98 20 122/80 95 Nasal Cannula 09/06 0948 80 124/78 Intake & Output 09/07 1600 09/07 0800 09/07 0000 Intake Total 210 Output Total Balance 210 Intake, IV 110 Intake, Oral 100 Physical Exam General Appearance: Alert, Oriented X3, Cooperative, Mild Distress Skin: No Rashes, No Breakdown, mild erythema over both the legs HEENT: Atraumatic, PERRLA, EOMI Neck: Supple, No JVD Cardiovascular: Regular Rate, Normal S1, Normal S2, No Murmurs Lungs: Clear to Auscultation, Normal Air Movement Abdomen: Normal Bowel Sounds, Soft, No Tenderness Neurological: Sensation Intact, increased tone over lower extremities Extremities: No Clubbing, No Cyanosis, No Edema Vascular: Normal Pulses, Pulses Symmetrical Current Medications: Current Medications Sig/Omero Start time Last Medication Dose Route Stop Time Status Admin Acetaminophen 650 MG Q6P PRN 09/02 0530 AC PO Albuterol Sulfate 2 PUF Q4P PRN 09/02 0415 AC INH Aspirin 81 MG DAILY 09/02 1000 AC 09/06 PO 0946 Atorvastatin Calcium 40 MG 1700 09/02 1700 AC 09/06 PO 1624 Bisacodyl 5 MG DAILY 09/05 1504 AC 09/06 PO 0949 Docusate Sodium 100 MG DAILY NEEDED PRN 09/04 1730 AC PO Duloxetine HCl 60 MG DAILY 09/02 1000 AC 09/06 PO 0946 Enoxaparin Sodium 90 MG BID 09/06 1000 AC 09/06 SC 2157 Gabapentin 300 MG TID 09/02 1000 AC 09/06 PO 2150 Insulin Aspart 0 AT BEDTIME 09/02 2200 AC 09/06 SC 2157 Insulin Aspart 0 TIDAC 09/02 1200 AC 09/06 SC 1756 Insulin Detemir 32 UNITS BID 09/06 1000 AC 09/06 SC 2158 Insulin Detemir 26 UNITS BID 09/05 1000 DC 09/05 SC 2121 Lisinopril 5 MG DAILY 09/02 1000 AC 09/06 PO 0948 Magnesium Hydroxide 30 ML ONE ONE 09/07 0815 AC PO 09/07 0816 Magnesium Sulfate 1 GM Q2H 09/06 1645 DC 09/06 Dextrose/Water 100 ML IV 09/06 2044 1933 Magnesium Sulfate 1 GM Q2H 09/06 0900 DC 09/06 Dextrose/Water 100 ML IV 09/06 1259 1449 Oxycodone HCl 5 MG TIDPRN PRN 09/06 0900 AC 09/06 PO 2149 Oxycodone/ 2 TAB ONCE ONE 09/07 0100 DC 09/07 Acetaminophen PO 09/07 0101 0113 Oxycodone/ 2 TAB Q6P PRN 09/02 1800 DC 09/06 Acetaminophen PO 0746 Polyethylene Glycol 17 GM DAILY 09/04 1716 AC 09/06 PO 0946 Senna 187 MG AT BEDTIME 09/04 2200 AC 09/06 PO 2149 Tramadol HCl 50 MG Q6PRN PRN 09/02 0415 AC 09/07 PO 0039 Last 24 Hrs of Lab/Manny Results Last 24 Hrs of Labs/Mics: Laboratory Tests 09/07/16 0615: Magnesium Pending, CBC w Diff Pending, WBC Pending, RBC Pending, Hgb Pending, Hct Pending, MCV Pending, MCH Pending, RDW Pending, Plt Count Pending, MPV Pending, Gran % Pending, Lymphocytes % Pending, Monocytes % Pending, Eosinophils % Pending, Basophils % Pending, Absolute Granulocytes Pending, Absolute Lymphocytes Pending, Absolute Monocytes Pending, Absolute Eosinophils Pending, Absolute Basophils Pending, PUBS MCHC Pending 09/06/16 1815: Ref Lab Test Result Pending Assessment/Plan Assessment: Ms. 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 She was initially admitted to telemetry floor and then transferred to general medical after stabilization from cardiac point of view #Bilateral extensive DVT * History of recent mechanical fall with excruciating left lower extremity pain * Lower extremity Doppler scan revealed - Evidence of bilateral DVT from the region of the popliteal veins extending up to the common femoral veins bilaterally. * we will discharge with Lovenox 1mg/kg BID (90mg BID) as per hematology recommendations ( on board) * Percocet restarted with 2 tab Q6 PRN as patient had significant pain in her lower extremities. * Patient has 2 IVF, a second IVF was placed because of thrombosis over the primary one * Vascular consultation was obtained, recommended to elevate and decompression of both lower extremities by wrapping both legs from foot to the upper thigh with Kerlix and Luis M bandages or swelling relief. Denied any acute intervention and signed off for an eventual outpatient follow up. * Patient's record from [facility] was obtained, lupus anticoagulant is positive, PTT prolongation, anticardiolipin antibody negative, factor V Leiden mutation negative, prothrombin G to a mutation negative, protein C high, protein S within normal, plasminogen activity high, alpha-2 antiplasmin negative, von Willebrand factor negative. * Anti - XA levels are requested to evaluate any inhibitors in the blood. Uncontrolled Diabetes: * Patient had elevated glucose level of 508, HbA1C of 13 without any anion gap. * Her blood sugars are well controlled, this am 185, would continue with levemir to 32 BID, sliding scale coverage before meals. * Patient is not following any vest busheler outside. * Endo consulted - is on board. * She is getting discharged with meal time coverage and levemir 32 BID with discontinuation of bedtime scale. History of Hypertension * On Lisinopril 5 mg daily * Continue atorvastatin 40 mg daily (hyperlipidemia) History Depression and Anxiety * Continue duloxetine 90 mg and gabapentin 300 mg 3 times a day by mouth History of sleep disturbance. * trazodone 50mg Q6 PRN DVT prophylaxis * SC Lovenox Diet * CC2 Code Status * Full Code Consultation cardiology(signed off), vascular (signed off), heme oncology, endocrine. Problem List: 1. Diabetes 2. Asthma 3. Hyperlipidemia 4. GERD (gastroesophageal reflux disease) 5. Depression 6. Musculoskeletal leg pain 7. Leukocytosis Pain Ratin Pain Location: left lower extremity Pain Goal: Pain 4 or less Pain Plan: Percocet 2 tab Q6hrs PRN Tomorrow's Labs & Rationales: NONE MARILIA KIMBROUGH MD 09/07/16 1126: Attending MD Review Statement Attending Statement Attending MD Statement: examined this patient, discuss w/resident/PA/COMPO CONVEYOR OPERATOR, agreed w/resident/PA/COMPO CONVEYOR OPERATOR, reviewed EMR data (avail), discussed with nursing, discussed with case mgmt, amended to note Attending Assessment/Plan: Patient seen and examined, still completing of a lot of pain in the lower extremities. She is on tramadol and Percocet. She said that it helps some. Patient has been seen a vascular surgery and no interventions are planned from their standpoint at this point. Vital Signs Date Time Temp Pulse Resp B/P Pulse O2 O2 Flow FiO2 Ox Delivery Rate 09/07 1002 118/72 09/07 0535 97.6 87 20 110/70 94 Nasal 2.0L Cannula 09/07 0000 Nasal 2.0L Cannula 09/06 2146 97.9 98 20 122/80 95 Nasal Cannula on exam; aox3, nad. cv; s1,s2, rrr resp; clear abd; soft, nt, bs+ ext; 2+ tense edema b/l Laboratory Tests 09/07 09/06 0615 1815 Chemistry Magnesium (1.6 - 2.3 mg/dL) 1.5 L Hematology CBC w Diff MAN DIFF ORDERED WBC (4.8 - 10.8 /CUMM) 13.4 H RBC (4.20 - 5.40 /CUMM) 3.67 L Hgb (12.0 - 16.0 G/DL) 9.7 L Hct (37 - 47 %) 30.6 L MCV (81.0 - 99.0 FL) 83.3 MCH (27.0 - 31.0 PG) 26.5 L RDW (11.5 - 14.5 %) 17.4 H Plt Count (130 - 400 /CUMM) 503 H MPV (7.4 - 10.4 FL) 9.2 Gran % (42.2 - 75.2 %) 59.1 Lymphocytes % (20.5 - 51.1 %) 30.5 Monocytes % (1.7 - 9.3 %) 7.6 Eosinophils % (0 - 5 %) 2.2 Basophils % (0.0 - 2.0 %) 0.6 Absolute Granulocytes (1.4 - 6.5 /CUMM) 7.9 H Segmented Neutrophils (42.2 - 75.2 %) 54 Absolute Lymphocytes (1.2 - 3.4 /CUMM) 4.1 H Lymphocytes (20.5 - 51.1 %) 38 Monocytes (1.7 - 9.3 %) 7 Absolute Monocytes (0.10 - 0.60 /CUMM) 1.0 H Eosinophils (0 - 5.0 %) 1 Absolute Eosinophils (0.0 - 0.7 /CUMM) 0.3 Absolute Basophils (0.0 - 0.2 /CUMM) 0.1 Nucleated RBCs (0.0 - 0.0 /100WBC) 3 H Platelet Estimate (ADEQUATE) INCREASED Polychromasia 1+ Hypochromic-Microcytic 1+ Poikilocytosis 1+ Anisocytosis 1+ PUBS MCHC (33.0 - 37.0 G/DL) 31.9 L Miscellaneous Ref Lab Test Result Pending A/P; Patient is a 36-year-old female with pmh sig for diabetes, recurrent pulmonary embolus S/P thrombectomy 2008 and IVF filter 2015 with last admission PE February 2016, antiphospholipid antibody syndrome/lupus anticoagulants (on lovenox 150 mg subcutaneous daily), asthma on home oxygen 2 L, anemia, hypertension, hyperlipidemia, chronic back pain , partial pancreatectomy and splenectomy (benign tumor of pancreas), depression and GERD, was admitted with a mechanical fall as well as X many pain and found to have an extensive bilateral low-density acute DVT despite being on anti-coagulation. According to the patient she was compliant with her Lovenox. Her blood sugars are finally better controlled on the current regimen of insulin. At this point patient has been started on twice a day dosing of Lovenox. She continues to complain of pain in bilateral lower extremity and has swelling. I tried to extended to the patient that hopefully this will improve gradually and slowly over the course of next few weeks. As I mentioned, patient has been seen by vascular surgery and they did not recommend doing any intervention. Patient is tolerating Lovenox well. She is on Percocet as well as tramadol for pain control. We'll continue the rest of her medications. I told patient's nurse to give her the pain medications and then bring her outside the room for the walk. If patient does well then she can be discharged home today. Patient will be getting home services. She should follow-up with her primary care doctor, automotive finance manager, endocrine as well as vascular surgery as an outpatient
[2016-09-07] MEDS ORDERED: LOVENOX100 MG/1 M SC (08:46)
[2016-09-07] MEDS ORDERED: NOVOLOG100 UNIT/2 SC (11:19)
[2016-09-07] MEDS ORDERED: PERCOCET 5-3251 EACH PO ×2 (11:28→11:55)
--- NOTE | 2016-09-07 13:44 | Discharge Summary ---
Visit Information Visit Dates Admission Date: 09/02/16 Discharge Date: 09/07/16 Hospital Course Course Attending Physician: KAYLAN WALLER,MARILIA Primary Care Physician: Jennifer Thompson M.D. Consulting Request: 1 Consulting Specialty: Cardiology Consulting Physician: edwin Kramer M.D Reason for Consult: Right heart strain evaluation Consulting Request: 2 Consulting Specialty: Endocrinology Consulting Physician: Reason for Consult: Uncontrolled diabetes Consulting Request: 3 Consulting Specialty: Hematology/Oncology Consulting Physician: Reason for Consult: Recurrent DVT while on anticoagulation Consulting Request: 4 Consulting Specialty: Thoracic/Vascular Surgery Consulting Physician: Reason for Consult: Bilateral extensive DVT Hospital Course: Ms. 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 Upon admission Vital signs: stable Significant labs include CBC: WBC 20.8 with left shift no bandemia, hemoglobin 9.8/hematocrits 31.2, platelets 285; d-dimer 3234, sodium 131 (baseline), potassium 4.2 Dioxide 20, on a Gap 13, BUN 9, Creatinine 0.4, Glucose 528, Hemoglobin A1c 13.2, serum osmolarity 297, lactic acid 1.7 calcium 8.8 magnesium 1.1, elevated triglycerides and total cholesterol and cholesterol HDL ratio. CT scan w/ IV contrast of the LLE: Mild edema is also seen involving the sartorius and adductor longus muscles. Lower extremity Doppler scan revealed IMPRESSION: Evidence of bilateral DVT from the region of the popliteal veins extending up to the common femoral veins bilaterally. She is admitted to telemetry floor initially and then transferred to [facility] once found stable cardiac stand point of view. The following issues are addressed during the hospital course #Bilateral extensive DVT Patient presented with a recent mechanical fall with excruciating left lower extremity pain. Patient has 2 IVF, a second IVF was placed because of thrombosis over the primary one. Lower extremity Doppler scan revealed - Evidence of bilateral DVT from the region of the popliteal veins extending up to the common femoral veins bilaterally. Started on IV Heparin, discontinued after 48hrs and continued on Lovenox 1mg/kg BID (90mg BID) as per hematology recommendations ( ). she reports significant pain in her lower extremities, which revealed with percocet during her stay. Her home medication roxicodon no longer helped her relief pain. So she was given a course of pain medications. she was discharged with home physical therapy as she had significant pain to walk and her muscles are significantly tight. Vascular consultation was obtained, recommendation elevate and decompression of both lower extremities by wrapping both legs from foot to the upper thigh with Kerlix and Luis M bandages or swelling relief. Denied any acute intervention and signed off for an eventual outpatient follow up. Patient[facility] record from [facility] was obtained, lupus anticoagulant is positive, PTT prolongation, anticardiolipin antibody negative, factor V Leiden mutation negative, prothrombin G to a mutation negative, protein C high, protein S within normal, plasminogen activity high, alpha-2 antiplasmin negative, von Willebrand factor negative. Anti - XA levels are requested to evaluate any inhibitors in the blood. Uncontrolled Diabetes: Patient had elevated glucose level of 508, HbA1C of 13 without any anion gap at the time of admission. Blood sugars are elevated over few days, Dr. Balderas consulted and adjusted insulin sliding scale and increased levemir to 32 units BID. Please see CMR for new sliding scale. Patient doesnt follow any rn coronary care unit and need further follow up wtih . Persistent hypomagnesemia She found to have very low mag levels which were repleted every day. Even on the day of discharge her Mg is 1.5 which was repleted. Please check her Mg levels as an outpatient. She may benefit from scheduled doses if low again. History of Hypertension and Hyperlipidemia On Lisinopril 5 mg daily and atorvastatin 40mg at home which were continued during her hospital course. History Depression and Anxiety Her home medications duloxetine 90 mg and gabapentin 300 mg 3 times a day by mouth are continued. History of sleep disturbance. trazodone 50mg Q6PRN was continued. Abnormal bowel movements Patient didnt have bowel movement for 5 days during her hospital course, She reports only at home she is comfortable having a bowel movement. Gave aggressive bowel regimen and discharged home. There is also a component of opiate intake in the hospital. DVT prophylaxis SC Lovenox Diet CC2 Code Status Full Code Allergies: Coded Allergies: adhesive (Mild, RASH 02/12/16) latex (UNKNOWN 02/12/16) Significant Procedures: CT scan w/ IV contrast of the LLE: Mild edema is also seen involving the sartorius and adductor longus muscles. This is a nonspecific finding and clinical Lower extremity Doppler scan revealed FINDINGS: On the right, the deep venous system is partially occluded with noncompressible thrombus extending from the upper portion of the popliteal vein into the common femoral vein. Decreased Doppler flow is noted in this region with no color signal whatsoever. Some calf veins are patent. Pertinent Lab Results: Significant labs include CBC: WBC 20.8 with left shift no bandemia, hemoglobin 9.8/hematocrits 31.2, platelets 285; d-dimer 3234, sodium 131 (baseline), potassium 4.2 Dioxide 20, on a Gap 13, BUN 9, Creatinine 0.4, Glucose 528, Hemoglobin A1c 13.2, serum osmolarity 297, lactic acid 1.7 calcium 8.8 magnesium 1.1, elevated triglycerides and total cholesterol and cholesterol HDL ratio. Persistent Hypomagnesemia High blood sugars Disposition Summary Disposition Principal Diagnosis: Extensive bilateral DVT Additional Diagnosis: Hyperglycemia (poorly controlled diabetes) Discharge Disposition: home health services Discharge Instructions General Discharge Information Code Status: Full Code Patient's Diet: Diabetic diet Patient's Activity: Acitivity as tolerated Follow-Up Instructions/Appts: -Please follow-up with your primary care physician within 1 week after discharge -Please follow up with bale coverer Dr. Kramer after discharge -Please follow up with central office worker Dr. Moon after discharge -Please follow up with vascular surgeon Dr. Blakely after discharge -Please follow up with rn coronary care unit Dr. Balderas after discharge Medications at Discharge Discharge Medications: Stop taking the following medications: Simvastatin (Simvastatin*) 5 MG TABLET ORAL DAILY Insulin Aspart, Recombinant (Novolog Flexpen) 100 UNIT/1 ML INSULN.PEN Inject into fatty tissue 3 TIMES DAILY BEFORE MEALS Qty = 15 Insulin Glargine,Hum.rec.anlog (Toujeo Solostar) 300 UNIT/ML (1.5 ML) INSULN.PEN Inject into fatty tissue TAKE AT BEDTIME Qty = 6 Enoxaparin Sodium (Lovenox) 150 MG/ML SYRINGE Inject into fatty tissue DAILY Qty = 10 Oxycodone HCl (Oxycodone HCl) 5 MG TABLET ORAL THREE TIMES A DAY NEEDED Qty = 90 Continue taking these medications: Gabapentin (Neurontin) 300 MG CAPSULE 1 Capsule ORAL Every Morning Comments: PER PT Last Taken:09/07/16 Time:3:45 PM Lisinopril (Lisinopril) 5 MG TABLET 1 Tablet ORAL DAILY Qty = 30 Comments: Last Taken:09/07/16 Time:10 AM Simvastatin (Simvastatin*) 40 MG TABLET 1 Tablet ORAL Every night Qty = 30 Comments: Last Taken:09/07/16 Time:3:45 PM Start taking the following new medications: Insulin Aspart (Novolog) 100 UNIT/ML VIAL 0 Units Inject into fatty tissue 3 TIMES DAILY BEFORE MEALS Qty = 30 No Refills Instructions: BEFORE MEALS Blood Insulin Sugar Units <80 no coverage 81-150 12 units 150-200 14 units 201-250 16 units 251-300 18 units 301-350 20 units 351-400 22 units >400 Call Doctor Oxycodone HCl/Acetaminophen (Percocet 5-325 MG Tablet) 5 MG-325 MG TABLET 2 Tablet ORAL EVERY SIX HOURS NEEDED as needed for PAIN SCALE 1-3 (MILD) Qty = 40 No Refills Comments: Last Taken:09/07/16 Time:12 PM Aspirin (Aspirin*) 81 MG TAB.CHEW 81 Milligram ORAL DAILY Qty = 30 No Refills Comments: Last Taken:09/07/16 Time:10 AM Enoxaparin Sodium (Lovenox) 100 MG/ML SYRINGE 90 Milligram Inject into fatty tissue TWICE DAILY Days = 30 No Refills Comments: Last Taken:09/07/16 Time:10 AM Insulin Detemir (Levemir) 100 UNIT/ML VIAL 32 Units Inject into fatty tissue TWICE DAILY Qty = 30 No Refills Comments: Last Taken:09/07/16 Time:10 AM Copies To: KENISHA KIMBROUGH MD, ANTHONY Attending MD Review Statement Documenting Attending: MARILIA KIMBROUGH MD Comments: Last Taken:09/07/16 Time:10 AM Copies To: KENISHA KIMBROUGH MD, ANTHONY Attending MD Review Statement Documenting Attending: MARILIA KIMBROUGH MD
--- NOTE | 2016-09-07 14:14 | NUR ---
1330- PT AMBULATED APPROXIMATELY 200FT WITH 2L NC AND RW. GAIT STEADY. PT STATES SHE DOES NOT HAVE RW AT HOME AND FEELS SAFER WITH A ROLLING WALKER. TELEPHONIC NURSE KAREN TO OBTAIN A SCRIPT FOR A RW FOR DISCHARGE.
[2016-09-07 14:37] VITALS: BP 136/90
== END 2016-09-07 16:45 | disposition home health service (06) | DRG 197 ==
LOC: ENRESERVDT → ENRESERVTM → ERH 01:31 → ENPENDDIS 05:21 → ERHI 05:21 → 2NA 05:21 → 1NO 05:21 → 2NA 09-05 22:15
PROVIDERS: Emergency Medicine; Internal Medicine; Student in an Organized Health Care Education/Training Program; ADMIT Student in an Organized Health Care Education/Training Program
DX: I82.4Y2 Acute embolism and thrombosis of unspecified deep veins of left proximal lower extremity (principal); Z86.711 Personal history of pulmonary embolism; Z79.01 Long term (current) use of anticoagulants; E11.9 Type 2 diabetes mellitus without complications; Z79.4 Long term (current) use of insulin; D68.61 Antiphospholipid syndrome; J45.909 Unspecified asthma, uncomplicated; Z99.81 Dependence on supplemental oxygen; E83.42 Hypomagnesemia; I10 Essential (primary) hypertension; E78.5 Hyperlipidemia, unspecified; F41.8 Other specified anxiety disorders; D68.59 Other primary thrombophilia
CPT/HCPCS: 1NSP; 2NASP; 36415; 74000; 82436; 93005; 93010; 93306; 93970; 96374; 96375; 97116-GO; 97161-GP; 97530-GO; 99291; J1644; J1650; J1815; J3490

== ENCOUNTER 2016-09-12 16:01 | Emergency (ER) | payer OTHER ==
[~2016-09-12] VITALS: Ht 160 cm; Wt 89.8 kg
[~2016-09-12 16:01] MED LIST changes: +ASPIRIN81 M4 PO; +LEVEMIR100 UNIT/1 SC; +NOVOLOG100 UNIT/2 SC; +SIMVASTATIN40 M1 PO
[2016-09-12 18:14] LABS: ABSOLUTE EOSINOPHIL COUNT 0.2 /CUMM (0.0-0.7); MEAN PLATELET VOLUME 8.1 FL (7.4-10.4)
--- NOTE | 2016-09-12 18:16 | ED GENERAL ADULT ---
History of Present Illness General Chief Complaint: Lower Extremity Problems Stated Complaint: HAST URINATED IN 2DAYS, BILATERAL LE SWELLING Source: patient, old records Exam Limitations: no limitations Vital Signs & Intake/Output Vital Signs & Intake/Output Vital Signs Date Time Temp Pulse Resp B/P Pulse O2 O2 Flow FiO2 Ox Delivery Rate 09/12 2054 99.3 105 18 112/58 98 Nasal 2.0L Cannula 09/12 1955 98 Room Air 09/12 1825 78 18 111/58 98 Room Air 09/12 1630 98.6 102 16 124/79 100 Nasal 2.0L Cannula Allergies Coded Allergies: adhesive (Mild, RASH 02/12/16) latex (UNKNOWN 02/12/16) Reconcile Medications Albuterol Sulfate (Proair Hfa) 90 MCG HFA.AER.AD 2 PUF INH PRN ASTHMA ( Reported) Aspirin (Aspirin*) 81 MG TAB.CHEW 81 MG PO DAILY HEART HEALTH Cetirizine HCl 10 MG TABLET 1 TAB PO QHS ASTHMA (Reported) Duloxetine HCl 30 MG CAPSULE.DR 90 MG PO DAILY MENTAL HEALTH (Reported) Enoxaparin Sodium (Lovenox) 100 MG/ML SYRINGE 90 MG SC BID DVT Furosemide 20 MG TABLET 1 TAB PO DAILY PRN DIURETIC (Reported) Gabapentin (Neurontin) 300 MG CAPSULE 1 CAP PO QAM NEUROPATHY (Reported) Gabapentin (Neurontin) 300 MG CAPSULE 2 CAP PO QPM NEUROPATHY (Reported) Insulin Aspart (Novolog) 100 UNIT/ML VIAL 0 UNITS SC TIDAC Diabetes BEFORE MEALS Blood Insulin Sugar Units <80 no coverage 81-150 12 units 150-200 14 units 201-250 16 units 251-300 18 units 301-350 20 units 351-400 22 units >400 Call Doctor Insulin Detemir (Levemir) 100 UNIT/ML VIAL 32 UNITS SC BID blood sugars Insulin Glargine,Hum.rec.anlog (Toujeo Solostar) 300 UNIT/ML (1.5 ML) INSULN.PEN 40 UNITS SC QHS DM (Reported) Insulin Lispro (Humalog Kwikpen U-100) (Unknown Strength) INSULN.PEN (Unknown Dose) UNKNOWN (Reported) Lisinopril 5 MG TABLET 1 TAB PO DAILY HTN (Reported) Mometasone Furoate (Nasonex) 50 MCG SPRAY.PUMP 1 SPRAY NASB DAILY ASTHMA ( Reported) Montelukast Sodium 10 MG TABLET 1 TAB PO QPM ASTHMA (Reported) Oxycodone HCl/Acetaminophen (Percocet 5-325 MG Tablet) 5 MG-325 MG TABLET 2 TAB PO Q6P PRN PAIN SCALE 1-3 (MILD) Simvastatin (Simvastatin*) 40 MG TABLET 1 TAB PO QPM HLP (Reported) Trazodone HCl 50 MG TABLET 2 TAB PO QHS PRN SLEEP (Reported) Triage Note: PT TO ED FOR WORSENING EDEMA, DIFFICULTY URINATING, WORSENING SOB AND GENERALIZED BODY PAIN SINCE SHE WAS DISCHARGED FROM [place] ON MONDAY. NARESH SAW HER MONDAY AT HOME WHO SENT PT TO [facility] ED "BUT THEY DID NOTHIN SO I WALKED OUT" REPORTING FEELING PROGRESSIVELY WORSE OVER THE WEEKEND, SAW PCP TODAY WHO SUGGESTED PT RETURN TO ED FOR EVAL DUE TO WORSENING LEG EDEMA, BODY PAIN AND SOB. PT WEARS 2 L NC AT BASELINE, REPORTING SOB IS WORSE AT NIGHT. Triage Nurses Notes Reviewed? yes Onset: Abrupt Duration: day(s): Timing: recent history Injury Environment: home Severity: severe No Modifying Factors: none : No Patient currently breastfeeds: No HPI: 36-year-old female comes into emergency room for further evaluation of leg pain. Patient has multiple chronic medical problems including previous history of DVT and PEs. Patient was recently discharged here from the hospital and has new bilateral DVTs in lower extremity is. Patient has [address] Patient has been some increasing shortness of breath as well as increasing pain in her lower legs. Denies any vomiting. Denies any chest pain. Denies any fever chills. Patient ran out of oral pain medications at home. Nothing seems to make the symptoms better or worse. (BETO ROMERO) Past History Travel History Traveled to [place] past 21 day No Medical History Any Pertinent Medical History? see below for history Neurological: migraine EENT: allergies, sinusitis Cardiovascular: hypertension, hyperlipidemia Respiratory: asthma, pulmonary embolism (recurrent. on coumadin) Gastrointestinal: s/p partial pancreatectomy Hepatic: NONE Renal: nephrolithiasis Musculoskeletal: costochondritis Psychiatric: depression Endocrine: diabetes Blood Disorders: anemia Cancer(s): NONE EMR ANALYST/Reproductive: NONE Other Medical Hx: Lupus anticoagulant and antiphospholipid antibody syndrome Sepsis diabetes, recurrent pulmonary embolus S/P thrombectomy 2008 and IVF filter 2015 with last admission PE February 2016, antiphospholipid antibody syndrome/lupus anticoagulants (on lovenox 150 mg subcutaneous daily), asthma on home oxygen 2 L , anemia, hypertension, hyperlipidemia, chronic back pain , 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 History of MRSA: No History of VRE: No History of CDIFF: No Influenza Vaccine: 06/29/16 Tetanus Vaccine: 04/23/14 Surgical History Surgical History: tubal ligation history of massive PE with clot removal excision of a pancreatic tumor splenectomy partial pancreatectomy for benign tumor TUMOR REMOVAL FROM PANCREAS Psychosocial History Who do you live with Family Services at Home None What is your primary language Slovenian Tobacco Use: Never used ETOH Use: denies use Illicit Drug Use: denies illicit drug use Family History Family History, If Any: MOTHER (hypertension, diabetes mellitus). FATHER (hypertension, diabetes mellitus). Hx Contributory? No (BETO ROMERO) Review of Systems Review of Systems Constitutional: Reports: no symptoms. EENTM: Reports: no symptoms. Respiratory: Reports: see HPI. Cardiovascular: Reports: no symptoms. GI: Reports: no symptoms. Genitourinary: Reports: no symptoms. Musculoskeletal: Reports: see HPI. Skin: Reports: no symptoms. Neurological/Psychological: Reports: no symptoms. Hematologic/Endocrine: Reports: no symptoms. Immunologic/Allergic: Reports: no symptoms. All Other Systems: Reviewed and Negative (BETO ROMERO) Physical Exam Physical Exam General Appearance: alert, awake, moderate distress Head: atraumatic, normal appearance Eyes: Bilateral: normal appearance. Ears, Nose, Throat: normal ENT inspection, hearing grossly normal Neck: normal inspection Respiratory: decreased breath sounds, respiratory distress (MILD) Cardiovascular: regular rate/rhythm, tachycardia Gastrointestinal: soft Extremities: SWELLING BILATERALLY, DIFFUSE, CAP REFILL INTACT Neurologic/Psych: awake, alert, oriented x 3, normal gait, normal mood/affect Skin: intact, normal color Core Measures ACS in differential dx? No CVA/TIA Diagnosis: No Severe Sepsis Present: No Septic Shock Present: No (BETO ROMERO) Progress Differential Diagnoses I considered the following diagnoses in my evaluation of the patient: DVT, pulmonary embolism, cellulitis, sepsis, respiratory failure, Plan of Care: Orders Procedure Date/time Status FingerStick- Glucose 09/12 2128 Active TROPONIN LEVEL 09/12 1649 Complete COMPREHENSIVE METABOLIC PANEL 09/12 1649 Complete CBC WITHOUT DIFFERENTIAL 09/12 164 Complete EKG 09/12 162 Active URINALYSIS 09/12 1617 Complete Current Medications Sig/Omero Start time Last Medication Dose Stop Time Status Admin Insulin Human Regular 4 UNITS ONCE ONE 09/12 2244 UNVr (Novolin R Inj) 09/12 2245 Hydromorphone HCl 1 MG ONCE ONE 09/12 2229 UNVr (Dilaudid) 09/12 2230 Laboratory Tests 09/12/16 1802: Anion Gap 10, Estimated GFR > 60, BUN/Creatinine Ratio 16.0, Glucose 374 H, Calcium 9.0, Total Bilirubin 0.3, AST 16, ALT 29, Alkaline Phosphatase 120, Troponin I < 0.01, Total Protein 6.8, Albumin 3.3 L, Globulin 3.5, Albumin/ Globulin Ratio 0.9 L, CBC w Diff MAN DIFF ORDERED, RBC 3.26 L, MCV 82.9, MCH 26.0 L, RDW 17.4 H, MPV 8.1, Gran % 68.8, Lymphocytes % 21.0, Monocytes % 9.0, Eosinophils % 1.1, Basophils % 0.1, Absolute Granulocytes 11.0 H, Segmented Neutrophils 63, Absolute Lymphocytes 3.4, Lymphocytes 28, Monocytes 7, Absolute Monocytes 1.4 H, Eosinophils 2, Absolute Eosinophils 0.2, Absolute Basophils 0, Platelet Estimate INCREASED, Polychromasia 1+, Hypochromic-Microcytic 2+, Poikilocytosis 1+, Anisocytosis 2+, Target Cells FEW, [place] Cells FEW, PUBS MCHC 31.4 L 09/12/16 1622: Urine Color YEL, Urine Clarity CLEAR, Urine pH 6.0, Ur Specific [place] 1.025, Urine Protein 30 H, Urine Ketones NEG, Urine Nitrite NEG, Urine Bilirubin NEG, Urine Urobilinogen 0.2, Ur Leukocyte Esterase NEG, Ur Microscopic SEDIMENT EXAMINED, Urine RBC 25-50 H, Urine WBC 1-3 H, Ur Epithelial Cells MANY H, Urine Mucus MOD H, Urine Hemoglobin MOD H, Urine Glucose >=1000 H Diagnostic Imaging: Viewed by Me: Ultrasound. Discussed w/RAD: Ultrasound. Radiology Impression: SERVICE DATE: 09/12/16-1924 EXAM TYPE: RAD - XRY- PORTABLE CHEST XRAY EXAMINATION: XR PORTABLE CHEST CLINICAL INFORMATION: Shortness of breath COMPARISON: Chest x-ray most recent prior dated 06/14/2016 TECHNIQUE: Portable AP view of the chest was obtained. FINDINGS: Status post median sternotomy. Stable cardiomediastinal silhouette. Mild haziness of the right midlung likely accentuated by overlying breast tissue. Overlying breast tissues somewhat limiting the evaluation of the underlying lungs. No gross evidence of acute airspace opacity. No acute osseous modality. IMPRESSION: No definite evidence of acute pulmonary disease. Mild haziness of the right midlung likely accentuated by overlying breast tissues. DICTATED BY: ARNULFO ORTEGA MD DATE/TIME DICTATED:09/12/162006, SERVICE DATE: 09/12/16 EXAM TYPE: US - US-EXT BILAT VENOUS DOPPLER EXAMINATION: US TRIPLEX LOWER EXTREMITY, BILATERAL CLINICAL INFORMATION: Bilateral lower extremity pain and swelling. Recent deep venous thrombosis of the bilateral lower extremities the patient is returning with worsening pain. COMPARISON: Triplex ultrasound of the bilateral lower extremity veins 09/02/2016. TECHNIQUE: Color-flow triplex imaging with spectral analysis and compression Doppler were performed on the bilateral lower extremities. FINDINGS: Limited exam secondary to patient body habitus. Evaluation of the bilateral lower extremity veins is again notable for nearly occlusive thrombus within the bilateral common femoral, profunda femoral and popliteal veins. There is also nearly occlusive thrombus within the proximal segment of the bilateral femoral veins. The mid and distal segments of the bilateral femoral veins are not well seen. Additionally, the bilateral calf veins are not well seen. No Ku's cysts are identified. IMPRESSION: Limited exam, secondary to patient body habitus. Newly occlusive thrombus within the bilateral common femoral, profunda femoral and popliteal veins, grossly unchanged relative to the prior examination. Newly occlusive thrombus is also identified within the proximal segment of the bilateral femoral veins. The mid and distal segments of the bilateral femoral veins as well as the bilateral calf veins are not well seen on today's examination. DICTATED BY: ROSALIO MIRELES MD DATE/TIME DICTATED:09/12/161921 LIAISON ENGINEER:BRAIN DATE/TIME TRANSCRIBED:09/12/161921 Initial ED EKG: normal intervals, normal p-waves, normal sinus rhythm, rate (116 ), nonspecific ST T wave chg (BETO ROMERO) Comments: 09/12/2016 10:28:33 PM patient signed out to me by JUSTINO. There was a question as to whether or not a CTA should be performed although under the circumstances it seems that it would not change medical management at this time. The patient has normal oxygen saturations on her chronic oxygen supplementation. She appears comfortable despite her complaints of leg pains. She is not significantly tachycardic. She states that she has failed treatment with Coumadin add to be atypical anticoagulants and is therefore on twice daily Lovenox because it's the only medicine that seems to work. She agrees that IF her pain can be controlled she should be capable of returning home. Dilaudid has been ordered. She is calling for a ride home. (GALE WALLER,JOSE RAMON Ceballos) Departure Departure Disposition: STILL A PATIENT Condition: Stable Referrals: BARRY CARISA,EMETERIO (PCP/Family) Departure Forms: Customer Survey General Discharge Information Comments 09/12/2016 9:16:35 PM Patient signout to Dr. Levine pending phone call from Dr. Paul. Case management has been involved. Patient is still having pain. Patient feels that she cannot go home. I discussed the case with Dr. laura who recommended calling Dr. Paul for a consult. (JOSE ALBERTO BADILLO,BETO) Departure Clinical Impression Primary Impression: Acute bilateral deep vein thrombosis (DVT) of femoral veins Secondary Impressions: Dyspnea Qualifiers: Dyspnea type: unspecified Qualified Code: R06.00 - Dyspnea, unspecified Intractable pain Additional Instructions: Percocet as prescribed for pain. No exertion. Follow-up with your primary care physician 24-48 hours for reevaluation. Also, monitor your blood sugar levels before each meal and at bedtime and keep a log for review by your primary care physician during your follow-up appointment. Strict diabetic diet. Return if any concerns or sudden worsening. Please note that there might be incidental findings in your evaluation that are unrelated to the current emergency department visit. Please notify your primary care doctor about this emergency department visit in order to obtain and review all of the testing performed so that these incidental findings can be monitored as needed. If you had an x-ray performed, please understand that some fractures may not be seen on the initial set of x-rays. If your symptoms persist you might need a repeat set of x-rays to check for such a fracture. If you had a laceration evaluated, please understand that foreign bodies such as glass or wood may not be visible to the naked eye or on plain x-rays. If the wound becomes red, swollen, increasingly more painful or if there is any drainage from the wound, please have it reevaluated by a physician for the possibility of a retained foreign body. Thank you for choosing the [facility] Emergency Department for your care. It was a pleasure to serve you today. Jose Ramon Levine M.D. [facility] (GALE WALLER,JOSE RAMON Ceballos) Critical Care Note Critical Care Note Critical Care Time: non-applicable (BETO ROMERO)
[2016-09-12 18:25] LABS: ABSOLUTE BASOPHIL COUNT 0 /CUMM (0.0-0.2); ABSOLUTE LYMPH COUNT 3.4 /CUMM (1.2-3.4); ABSOLUTE MONOCYTE COUNT 1.4 /CUMM (0.10-0.60); BASOPHIL % 0.1 % (0.0-2.0); EOSINOPHIL % 1.1 % (0-5); GRANULOCYTE % 68.8 % (42.2-75.2); MEAN CORPUSCULAR HGB CONC 31.4 G/DL (33.0-37.0); MEAN CORPUSCULAR VOLUME 82.9 FL (81.0-99.0); PLATELET COUNT 575 /CUMM (130-400); RBC DISTRIBUTION WIDTH 17.4 % (11.5-14.5); RED BLOOD CELL CT 3.26 /CUMM (4.20-5.40)
[2016-09-12] MEDS ORDERED: DULOXETINE HCL30 MG PO (19:16)
[2016-09-12] MEDS ORDERED: NASONEX17 GM NASB (19:17)
[2016-09-12] MEDS ORDERED: CETIRIZINE HCL10 M2 PO (19:17)
[2016-09-12] MEDS ORDERED: TRAZODONE HCL50 M1 PO (19:18)
[2016-09-12] MEDS ORDERED: TOUJEO SOL300 UNIT/1 SC (19:19)
[2016-09-12] MEDS ORDERED: NEURONTIN300 M1 PO (19:19)
[2016-09-12] MEDS ORDERED: MONTELUKAST SOD10 M1 PO (19:20)
[2016-09-12] MEDS ORDERED: HUMALOG KW100 UNIT/1 (19:20)
[2016-09-12] MEDS ORDERED: FUROSEMIDE20 M1 PO (19:21)
--- NOTE | 2016-09-12 19:31 | ULTRASOUND REPORT ---
EXAMINATION: US TRIPLEX LOWER EXTREMITY, BILATERAL CLINICAL INFORMATION: Bilateral lower extremity pain and swelling. Recent deep venous thrombosis of the bilateral lower extremities the patient is returning with worsening pain. COMPARISON: Triplex ultrasound of the bilateral lower extremity veins 09/02/2016. TECHNIQUE: Color-flow triplex imaging with spectral analysis and compression Doppler were performed on the bilateral lower extremities. FINDINGS: Limited exam secondary to patient body habitus. Evaluation of the bilateral lower extremity veins is again notable for nearly occlusive thrombus within the bilateral common femoral, profunda femoral and popliteal veins. There is also nearly occlusive thrombus within the proximal segment of the bilateral femoral veins. The mid and distal segments of the bilateral femoral veins are not well seen. Additionally, the bilateral calf veins are not well seen. No Ku's cysts are identified. IMPRESSION: Limited exam, secondary to patient body habitus. Newly occlusive thrombus within the bilateral common femoral, profunda femoral and popliteal veins, grossly unchanged relative to the prior examination. Newly occlusive thrombus is also identified within the proximal segment of the bilateral femoral veins. The mid and distal segments of the bilateral femoral veins as well as the bilateral calf veins are not well seen on today's examination.
--- NOTE | 2016-09-12 20:15 | RADIOLOGY REPORT ---
EXAMINATION: XR PORTABLE CHEST CLINICAL INFORMATION: Shortness of breath COMPARISON: Chest x-ray most recent prior dated 06/14/2016 TECHNIQUE: Portable AP view of the chest was obtained. FINDINGS: Status post median sternotomy. Stable cardiomediastinal silhouette. Mild haziness of the right midlung likely accentuated by overlying breast tissue. Overlying breast tissues somewhat limiting the evaluation of the underlying lungs. No gross evidence of acute airspace opacity. No acute osseous modality. IMPRESSION: No definite evidence of acute pulmonary disease. Mild haziness of the right midlung likely accentuated by overlying breast tissues.
[2016-09-12] MEDS ORDERED: PERCOCET 5-3251 EACH PO (22:57)
[2016-09-12 23:01] VITALS: BP 116/56
== END 2016-09-12 23:11 ==
LOC: ERH 16:01
PROVIDERS: Emergency Medicine
DX: I82.413 Acute embolism and thrombosis of femoral vein, bilateral (principal); R06.00 Dyspnea, unspecified; M79.606 Pain in leg, unspecified
CPT/HCPCS: 81001; 93005; 93010; 93970; 96372; 96374; 96375

== ENCOUNTER 2016-11-08 17:45 | Emergency (ER) | payer OTHER ==
[~2016-11-08] VITALS: Ht 160 cm; Wt 89.8 kg
[~2016-11-08 17:45] MED LIST changes: +HUMALOG KW100 UNIT/1
[2016-11-08 17:49] VITALS: BP 138/86
[2016-11-08] MEDS ORDERED: LOVENOX100 MG/1 M SC (18:27)
[2016-11-08] MEDS ORDERED: LASIX40 M1 PO (18:27)
[2016-11-08] MEDS ORDERED: LORAZEPAM0.5 M1 PO (18:28)
[2016-11-08] MEDS ORDERED: CYCLOBENZAPRINE10 M1 PO (18:29)
[2016-11-08] MEDS ORDERED: OXYCODONE-ACET1 EACH PO (18:29)
--- NOTE | 2016-11-08 19:58 | ULTRASOUND REPORT ---
EXAMINATION: US TRIPLEX LOWER EXTREMITY, LEFT CLINICAL INFORMATION: Pain. History of DVT, on Lovenox. COMPARISON: 09/12/2016 TECHNIQUE: Color-flow triplex imaging with spectral analysis and compression Doppler were performed on the left lower extremity. FINDINGS: There is a chronic partially occlusive deep venous thrombosis visualized extending from the left common femoral vein through the popliteal vein. There is some flow seen within the femoral vein, which may demonstrate some improvement from prior. There is flow seen within the profunda femoral vein. The calf veins are not well visualized. There is no Ku's cyst. IMPRESSION: Redemonstration of a chronic, partially occlusive deep venous thrombosis extending from the left common femoral vein through the popliteal vein. There may be some improvement from prior.
--- NOTE | 2016-11-08 20:29 | ED UPPER/LOWER EXTREMITY COMPL ---
History of Present Illness General Chief Complaint: Lower Extremity Problems Stated Complaint: L LEG SWELLING, HX OF BLOOD CLOTS Source: patient Exam Limitations: no limitations Vital Signs & Intake/Output Vital Signs & Intake/Output Vital Signs Date Time Temp Pulse Resp B/P Pulse O2 O2 Flow FiO2 Ox Delivery Rate 11/084 90 11/08 1749 98.7 120 16 138/86 97 Room Air Allergies Coded Allergies: adhesive (Mild, RASH 02/12/16) latex (UNKNOWN 02/12/16) Reconcile Medications Albuterol Sulfate (Proair Hfa) 90 MCG HFA.AER.AD 2 PUF INH PRN ASTHMA ( Reported) Aspirin (Aspirin*) 81 MG TAB.CHEW 81 MG PO DAILY HEART HEALTH Cetirizine HCl 10 MG TABLET 1 TAB PO QHS ASTHMA (Reported) Cyclobenzaprine HCl 10 MG TABLET 1 TAB PO TID PRN MUSCLE SPASMS (Reported) Duloxetine HCl 30 MG CAPSULE.DR 90 MG PO DAILY MENTAL HEALTH (Reported) Enoxaparin Sodium (Lovenox) 100 MG/ML SYRINGE 100 MG SC BID BLOOD THINNER ( Reported) Furosemide (Lasix) 40 MG TABLET 1 TAB PO BID DIURETIC (Reported) Gabapentin (Neurontin) 300 MG CAPSULE 1 CAP PO QAM NEUROPATHY (Reported) Gabapentin (Neurontin) 300 MG CAPSULE 2 CAP PO QPM NEUROPATHY (Reported) Insulin Aspart (Novolog) 100 UNIT/ML VIAL 0 UNITS SC TIDAC Diabetes BEFORE MEALS Blood Insulin Sugar Units <80 no coverage 81-150 12 units 150-200 14 units 201-250 16 units 251-300 18 units 301-350 20 units 351-400 22 units >400 Call Doctor Insulin Detemir (Levemir) 100 UNIT/ML VIAL 32 UNITS SC BID blood sugars Insulin Glargine,Hum.rec.anlog (Toujeo Solostar) 300 UNIT/ML (1.5 ML) INSULN.PEN 40 UNITS SC QHS DM (Reported) Lisinopril 5 MG TABLET 1 TAB PO DAILY HTN (Reported) Lorazepam 0.5 MG TABLET 1 TAB PO BIDP PRN ANXIETY (Reported) Mometasone Furoate (Nasonex) 50 MCG SPRAY.PUMP 1 SPRAY NASB DAILY ASTHMA ( Reported) Montelukast Sodium 10 MG TABLET 1 TAB PO QPM ASTHMA (Reported) Oxycodone HCl/Acetaminophen (Oxycodone-Acetaminophen 5-325) 5 MG-325 MG TABLET 1 TAB PO TIDPRN PRN PAIN (Reported) Simvastatin (Simvastatin*) 40 MG TABLET 1 TAB PO QPM HLP (Reported) Trazodone HCl 50 MG TABLET 2 TAB PO QHS PRN SLEEP (Reported) Triage Note: PT STATSE SHE HAS HX OF BLOOD CLOTS IN HER LEGS AND TODAY HER LEFT LEG IS SWOLLEN AND HURTS. Triage Nurses Notes Reviewed? yes Onset: Abrupt Duration: day(s): Timing: recent history Severity: moderate, severe : No Patient currently breastfeeds: No HPI: 36-YEAR-OLD FEMALE WITH A HISTORY OF BILATERAL dvtS CURRENTLY ON ANTICOAGULANTS COMES INTO EMERGENCY ROOM FOR FURTHER EVALUATION OF PAIN to her left lower leg over the Achilles tendon area. Pain is sharp. Throbbing. Denies any recent injuries. She has been taking her anticoagulants on a regular basis. Denies any chest pain or shortness of breath. Denies any other associated symptoms. Past History Travel History Traveled to [place] past 21 day No Medical History Any Pertinent Medical History? see below for history Neurological: migraine EENT: allergies, sinusitis Cardiovascular: hypertension, hyperlipidemia Respiratory: asthma, pulmonary embolism (recurrent. 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 History of MRSA: No History of VRE: No History of CDIFF: No Tetanus Vaccine: 04/23/14 Surgical History Surgical History: tubal ligation history of massive PE with clot removal excision of a pancreatic tumor splenectomy partial pancreatectomy for benign tumor TUMOR REMOVAL FROM PANCREAS Psychosocial History Who do you live with Family Services at Home None What is your primary language Syriac Tobacco Use: Never used ETOH Use: denies use Illicit Drug Use: denies illicit drug use Family History Family History, If Any: MOTHER (hypertension, diabetes mellitus). FATHER (hypertension, diabetes mellitus). Hx Contributory? No Review of Systems Review of Systems Constitutional: Reports: no symptoms. EENTM: Reports: no symptoms. Respiratory: Reports: no symptoms. Cardiovascular: Reports: no symptoms. Gastrointestinal/Abdominal: Reports: no symptoms. Genitourinary: Reports: no symptoms. Musculoskeletal: Reports: see HPI. Skin: Reports: no symptoms. Neurological/Psychological: Reports: no symptoms. Hematologic/Endocrine: Reports: no symptoms. Immunological: Reports: no symptoms. All Other Systems: Reviewed and Negative Physical Exam Physical Exam General Appearance: well developed/nourished, mild distress Head: atraumatic Eyes: Bilateral: normal appearance. Ears, Nose, Throat: normal ENT inspection, hearing grossly normal Neck: normal inspection Cardiovascular/Respiratory: no respiratory distress Back: normal inspection Leg Left: tenderness (over Achilles tendon,), Calhoun test negative Neurologic/Tendon: normal sensation, normal motor functions, normal tendon functions, responds to pain, no evidence tendon injury, no pulse deficit Skin: intact, normal color, warm/dry Lymphatic: no anterior cervical candace Progress Differential Diagnosis: arterial insufficiency, cellulitis, CHF, compartment syndrome, contusion, dislocation, DVT, fracture, gout, septic arthritis, sprain, tendon injury Plan of Care: Ultrasound shows no worsening DVT and slightly improved. Continue oral anticoagulants. Pain seems to be more consistent with soft tissue injury/ Achilles tendon. No evidence of Achilles tendon rupture. There is no skull clinical signs of infection. There is been no trauma at all to indicate any type of fracture. Patient has not injured her ankle or leg that she can recall. She does not appear to be in any type of distress upon discharge. She clinically looks well. Patient will follow up with her primary care doctor. Return if any other concerns. pt seen by dr landrum. Diagnostic Imaging: Viewed by Me: Ultrasound. Discussed w/RAD: Ultrasound. Radiology Impression: SERVICE DATE: 11/08/16 EXAM TYPE: US - US- UNILATERAL VENOUS DOPPLER EXAMINATION: US TRIPLEX LOWER EXTREMITY, LEFT CLINICAL INFORMATION: Pain. History of DVT, on Lovenox. COMPARISON: 09/12/2016 TECHNIQUE: Color-flow triplex imaging with spectral analysis and compression Doppler were performed on the left lower extremity. FINDINGS: There is a chronic partially occlusive deep venous thrombosis visualized extending from the left common femoral vein through the popliteal vein. There is some flow seen within the femoral vein, which may demonstrate some improvement from prior. There is flow seen within the profunda femoral vein. The calf veins are not well visualized. There is no Ku's cyst. IMPRESSION: Redemonstration of a chronic, partially occlusive deep venous thrombosis extending from the left common femoral vein through the popliteal vein. There may be some improvement from prior. DICTATED BY: BRUNO HARE MD DATE/TIME DICTATED:11/08/161947 AMBULANCE DRIVER PARAMEDIC: BRAIN DATE/TIME TRANSCRIBED:11/08/161947 CONFIDENTIAL, DO NOT COPY WITHOUT APPROPRIATE AUTHORIZATION. Departure Departure Disposition: HOME OR SELF CARE Condition: Stable Clinical Impression Primary Impression: Leg pain Referrals: BARRY CARIAS,EMETERIO (PCP/Family) Additional Instructions: Continue taking her Lovenox. Follow-up with your primary care doctor. Return if any concerns worsening symptoms. Please go over all results of today's visit with your primary care doctor. Contact your primary care doctor to let them know you were here in the emergency room. There may be nonspecific findings which may not be related to your visit today here in the emergency room but may require further evaluation and chronic monitoring by your primary care doctor. If you had a laceration today the chance of foreign body always remains. You should follow-up with your primary care doctor for recheck in 3-5 days for a wound check. If you had an x-ray done there is a chance that a fracture could have been missed on initial read and you should follow-up with your primary care doctor for repeat x-rays if symptoms persist. If your blood pressure was elevated here in the emergency room please have rechecked by her primary care doctor within the next 48 hours by your primary care doctor. If you were prescribed a narcotic here in the emergency room or any type of controlled substances you're not allowed to drive while taking this medication or operate any type of heavy machinery. Narcotics can make you feel lightheaded dizziness nausea and can cause constipation. You may need to poultry picking machine tender a stool softener. Thank you for choosing [facility] emergency room. Please return to the emergency room immediately if you have any other concerns worsening of symptoms. Departure Forms: Customer Survey General Discharge Information
== END 2016-11-08 20:34 ==
LOC: ERH 17:45
DX: M79.662 Pain in left lower leg (principal)

== ENCOUNTER 2016-11-18 13:04 | Emergency (ER) | payer OTHER ==
[~2016-11-18] VITALS: Ht 160 cm; Wt 88.9 kg
[~2016-11-18 13:04] MED LIST changes: +LASIX40 M1 PO; +OXYCODONE-ACET1 EACH PO
--- NOTE | 2016-11-18 13:58 | ED GENERAL ADULT ---
History of Present Illness General Chief Complaint: General Adult Stated Complaint: BLOOD CLOTS IN LEGS, MANY COMPLAINTS Source: patient, old records Exam Limitations: no limitations Vital Signs & Intake/Output Vital Signs & Intake/Output Vital Signs Date Time Temp Pulse Resp B/P B/P Pulse O2 O2 Flow FiO2 Mean Ox Delivery Rate 11/18 1521 98.4 91 20 116/74 100 Nasal 3.0L Cannula 11/18 1310 98.7 101 18 135/84 95 Room Air Allergies Coded Allergies: adhesive (Mild, RASH 02/12/16) latex (UNKNOWN 02/12/16) Reconcile Medications Albuterol Sulfate (Proair Hfa) 90 MCG HFA.AER.AD 2 PUF INH PRN ASTHMA ( Reported) Aspirin (Aspirin*) 81 MG TAB.CHEW 81 MG PO DAILY HEART HEALTH Cetirizine HCl 10 MG TABLET 1 TAB PO QHS ASTHMA (Reported) Cyclobenzaprine HCl 10 MG TABLET 1 TAB PO TID PRN MUSCLE SPASMS (Reported) Duloxetine HCl 30 MG CAPSULE.DR 90 MG PO DAILY MENTAL HEALTH (Reported) Enoxaparin Sodium (Lovenox) 100 MG/ML SYRINGE 100 MG SC BID BLOOD THINNER ( Reported) Furosemide (Lasix) 40 MG TABLET 1 TAB PO BID DIURETIC (Reported) Gabapentin (Neurontin) 300 MG CAPSULE 1 CAP PO QAM NEUROPATHY (Reported) Gabapentin (Neurontin) 300 MG CAPSULE 2 CAP PO QPM NEUROPATHY (Reported) Insulin Aspart (Novolog) 100 UNIT/ML VIAL 0 UNITS SC TIDAC Diabetes BEFORE MEALS Blood Insulin Sugar Units <80 no coverage 81-150 12 units 150-200 14 units 201-250 16 units 251-300 18 units 301-350 20 units 351-400 22 units >400 Call Doctor Insulin Detemir (Levemir) 100 UNIT/ML VIAL 32 UNITS SC BID blood sugars Insulin Glargine,Hum.rec.anlog (Toujeo Solostar) 300 UNIT/ML (1.5 ML) INSULN.PEN 40 UNITS SC QHS DM (Reported) Lisinopril 5 MG TABLET 1 TAB PO DAILY HTN (Reported) Lorazepam 0.5 MG TABLET 1 TAB PO BIDP PRN ANXIETY (Reported) Mometasone Furoate (Nasonex) 50 MCG SPRAY.PUMP 1 SPRAY NASB DAILY ASTHMA ( Reported) Montelukast Sodium 10 MG TABLET 1 TAB PO QPM ASTHMA (Reported) Oxycodone HCl/Acetaminophen (Oxycodone-Acetaminophen 5-325) 5 MG-325 MG TABLET 1 TAB PO TIDPRN PRN PAIN (Reported) Simvastatin (Simvastatin*) 40 MG TABLET 1 TAB PO QPM HLP (Reported) Trazodone HCl 50 MG TABLET 2 TAB PO QHS PRN SLEEP (Reported) Triage Note: 36 Y/O FEMALE C/O VAGINAL BLEEDING X 2 THIS WEEK, MOST RECENT THIS AM. STATES SHE IS CURRENTLY ON LOVENOX AND BABY ASA FOR DVTS/PE. NOTICED BLOOD ON TOILET PAPER TWICE AFTER URINATING. FRIEND PRESENT STATING "HER LIPS TURNED BLUE MONDAY AFTER WE WALKED TO COURT". L LOWER EXTREMITY SWOLLEN AND RED. PT SUPPOSED TO BE ON OXYGEN HOWEVER ARRIVES WITHOUT O2 - SAT 95% RA Triage Nurses Notes Reviewed? yes : No Patient currently breastfeeds: No HPI: Patient presents for evaluation of abdominal pain and other symptoms. Patient states that on Monday of this week her lips turned blue while she was walking and she experienced a right-sided abdominal pain and subsequent blood in the urine. She states the following day and today she is having a left sided abdominal pain with blood in the urine. She is also experiencing chest pain at night, dyspnea, diarrhea and near syncopal episodes. She denies vomiting or diarrhea or dysuria. Given the hematuria she is concerned about a problem with her IVC filter. Past History Travel History Traveled to [place] past 21 day No Medical History Any Pertinent Medical History? see below for history Neurological: migraine EENT: allergies, sinusitis Cardiovascular: hypertension, hyperlipidemia Respiratory: asthma, pulmonary embolism (recurrent. 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 History of MRSA: No History of VRE: No History of CDIFF: No Tetanus Vaccine: 04/23/14 Surgical History Surgical History: tubal ligation history of massive PE with clot removal excision of a pancreatic tumor splenectomy partial pancreatectomy for benign tumor TUMOR REMOVAL FROM PANCREAS Psychosocial History Who do you live with Family Services at Home None What is your primary language Macedonian Tobacco Use: Never used Family History Family History, If Any: MOTHER (hypertension, diabetes mellitus). FATHER (hypertension, diabetes mellitus). Hx Contributory? No Review of Systems Review of Systems Constitutional: Reports: no symptoms. EENTM: Reports: no symptoms. Respiratory: Reports: see HPI. Cardiovascular: Reports: see HPI. GI: Reports: see HPI. Genitourinary: Reports: see HPI. Musculoskeletal: Reports: no symptoms. Skin: Reports: no symptoms. Neurological/Psychological: Reports: no symptoms. Hematologic/Endocrine: Reports: no symptoms. Immunologic/Allergic: Reports: no symptoms. All Other Systems: Reviewed and Negative Physical Exam Physical Exam General Appearance: SEE BELOW Comments: Gen.: Well-nourished, well-developed, no acute respiratory distress. Head: Normocephalic, atraumatic. Eyes: Normal inspection bilaterally Ears: Normal inspection bilaterally Nose: Normal inspection Throat/mouth : Moist mucosa Neck: Supple, full range of motion, no goiter Heart: Regular rate and rhythm, no murmurs rubs or gallops Lungs: Clear to auscultation bilaterally with normal air entry Chest: Diffuse chest tenderness to palpation Back: Normal range of motion Abdomen: Soft, nontender, nondistended, normal bowel sounds Extremities: Normal range of motion grossly, swelling of the left leg and calf with tenderness (patient has known blood clots). Neurologic: Cranial nerves grossly intact, speech is clear Skin: warm and dry Psychiatric: Calm, cooperative, no apparent delusions or hallucinations Core Measures ACS in differential dx? No CVA/TIA Diagnosis: No Severe Sepsis Present: No Septic Shock Present: No Progress Differential Diagnoses I considered the following diagnoses in my evaluation of the patient: Acute coronary syndrome, pulmonary embolism, electrolyte abnormality, DKA Plan of Care: Orders Procedure Date/time Status PROTHROMBIN TIME 11/18 1356 Complete D-DIMER 11/18 1356 Complete CBC WITHOUT DIFFERENTIAL 11/18 1356 Complete BASIC METABOLIC PANEL 11/18 1356 Complete URINALYSIS 11/18 1340 Complete Laboratory Tests 11/18/16 1406: Anion Gap 15, Estimated GFR > 60, BUN/Creatinine Ratio 22.5, Glucose 395 H, Calcium 8.8, PT 12.1, INR 1.15, D-Dimer 852 H, CBC w Diff MAN DIFF ORDERED, RBC 4.24, MCV 74.9 L, MCH 22.7 L, RDW 18.9 H, MPV 8.3, Gran % 58.8, Lymphocytes % 32.9, Monocytes % 6.7, Eosinophils % 1.6, Basophils % 0 L, Absolute Granulocytes 6.9 H, Absolute Lymphocytes 3.9 H, Absolute Monocytes 0.8 H, Absolute Eosinophils 0.2, Absolute Basophils 0, Platelet Estimate ADEQUATE, Polychromasia 1+, Hypochromic-Microcytic 1+, Poikilocytosis 2+, Anisocytosis 1+, PUBS MCHC 30.3 L 11/18/16 1343: Urinalysis MOD H, Urine Color YEL, Urine Clarity CLEAR, Urine pH 6.0, Ur Specific [place] <= 1.005, Urine Protein TRACE H, Urine Ketones NEG, Urine Nitrite NEG, Urine Bilirubin NEG, Urine Urobilinogen 0.2, Ur Leukocyte Esterase NEG, Ur Microscopic SEDIMENT EXAMINED, Urine RBC 3-5, Urine WBC 1-3 H, Ur Epithelial Cells FEW, Urine Bacteria MANY H, Urine Hemoglobin LARGE H, Urine Glucose >=1000 H Diagnostic Imaging: Discussed w/RAD: Radiology Read. Radiology Impression: PATIENT: JAIMIE CHEN PRESENT AGE: 36 PATIENT ACCOUNT NO: [id number] : 81 LOCATION: [facility] ORDERING PHYSICIAN: JOSE RAMON LEVINE MD SERVICE DATE: 11/18/16 EXAM TYPE: RAD - [id number]-[id number] VIEWS EXAMINATION: XR ABDOMEN MULTIPLE VIEWS CLINICAL INDICATION: Abdominal pain. History of filter placement. COMPARISON: Abdomen 04/2017 TECHNIQUE: Upright supine AP abdomen FINDINGS: There are 2 IVC filters present. These are unchanged in position since the prior abdomen radiograph of 09/02/2016. There is one filter that is about the level of T12-L1. A second filter is just inferior to the first at L2-L3 level. No bowel dilatation. Moderate volume of stool in colon. Nonobstructive bowel pattern. No radiopaque generous urinary calculi. The calcifications in the pelvis are phleboliths. Lung bases are clear. IMPRESSION: No acute abnormality. [address] unchanged position since prior exam of 09/02/2016. DICTATED BY: GAURI BOONE MD DATE/TIME DICTATED:11/18/161500 ARMATURE REWINDER:BRAIN DATE/TIME TRANSCRIBED:11/18/161500 CONFIDENTIAL, DO NOT COPY WITHOUT APPROPRIATE AUTHORIZATION. <Electronically signed in Other Vendor System> SIGNED BY: GAURI BOONE MD 11/18/16 1508 CXR Impression: PATIENT: JAIMIE CHEN PRESENT AGE: 36 PATIENT ACCOUNT NO: [id number] : 81 LOCATION: [facility] ORDERING PHYSICIAN: JOSE RAMON LEVINE MD SERVICE DATE: 11/18/16 EXAM TYPE: RAD - XRY-CHEST XRAY, PA AND LATERAL EXAMINATION: CHEST 2 VIEWS CLINICAL INFORMATION: Chest pain, dyspnea. COMPARISON: 09/12/2016. TECHNIQUE: PA and lateral views of the chest were obtained. FINDINGS: The cardiac silhouette is not enlarged. Intact midline sternal wires are present. The mediastinal and hilar contours are unremarkable. There are neither pleural effusions nor pneumothoraces. There are no consolidations. The osseous structures are unremarkable. IMPRESSION: No evidence for acute disease. DICTATED BY: ELIZABETH BLAS MD DATE/TIME DICTATED:1448 ARMATURE REWINDER:BRAIN DATE/TIME TRANSCRIBED:11/18/161448 CONFIDENTIAL, DO NOT COPY WITHOUT APPROPRIATE AUTHORIZATION. <Electronically signed in Other Vendor System> SIGNED BY: ELIZABETH BLAS MD 11/18/16 1452 Initial ED EKG: none Comments: 11/18/2016 4:38:24 PM I have updated the patient on test results but she complained of left leg pain and worsening swelling. She has been unable to use her compression stockings. Her case has been discussed with the PA (Ms. Montgomery). I'm attempting to contact the vascular surgeon taking care of this patient for suggestions as well. 17:28 D/W DR PRIETO'S PA. HE will discuss patient's case with Dr. PRIETO. 17:[address] PRIETO'S PA. IF U/S UNCHANGED THEN CONT CURRENT CARE and outpatient follow-up. If DVT has increased substantially then case to be discussed with Dr. Prieto. 11/18/2016 7:00:20 PM I have updated Jaimie. Although her DVT is occlusive at this point, it was occlusive previously as well (2 ultrasounds ago). Based on my discussions with the vascular surgical coverage and casting machine operator helper I feel the patient is stable for outpatient management. Departure Departure Disposition: HOME OR SELF CARE Condition: Stable Clinical Impression Primary Impression: Chronic deep vein thrombosis (DVT) of left lower extremity Qualifiers: Affected thrombotic vein of extremity: femoral Qualified Code: I82.512 - Chronic embolism and thrombosis of left femoral vein Referrals: BARRY CARIAS,EMETERIO (PCP/Family) Additional Instructions: Follow-up with Dr. Gonzalez and Dr. Prieto this week for reevaluation of your DVT. Continue your current medications. Use the Luis M wrap to apply compression to your left leg until you can start using the compression stockings. Return if any concerns or sudden worsening. Please note that there might be incidental findings in your evaluation that are unrelated to the current emergency department visit. Please notify your primary care doctor about this emergency department visit in order to obtain and review all of the testing performed so that these incidental findings can be monitored as needed. If you had an x-ray performed, please understand that some fractures may not be seen on the initial set of x-rays. If your symptoms persist you might need a repeat set of x-rays to check for such a fracture. If you had a laceration evaluated, please understand that foreign bodies such as glass or wood may not be visible to the naked eye or on plain x-rays. If the wound becomes red, swollen, increasingly more painful or if there is any drainage from the wound, please have it reevaluated by a physician for the possibility of a retained foreign body. Thank you for choosing the [facility] Emergency Department for your care. It was a pleasure to serve you today. Jose Ramon Levine M.D. [facility] Departure Forms: Customer Survey General Discharge Information Critical Care Note Critical Care Note Critical Care Time: non-applicable
[2016-11-18 14:15] LABS: ABSOLUTE BASOPHIL COUNT 0 /CUMM (0.0-0.2); ABSOLUTE EOSINOPHIL COUNT 0.2 /CUMM (0.0-0.7); ABSOLUTE GRANULOCYTE CT 6.9 /CUMM (1.4-6.5); ABSOLUTE LYMPH COUNT 3.9 /CUMM (1.2-3.4); ABSOLUTE MONOCYTE COUNT 0.8 /CUMM (0.10-0.60); BASOPHIL % 0 % (0.0-2.0); EOSINOPHIL % 1.6 % (0-5); GRANULOCYTE % 58.8 % (42.2-75.2); HEMATOCRIT 31.7 % (37-47); MEAN CORPUSCULAR HGB 22.7 PG (27.0-31.0); MEAN CORPUSCULAR HGB CONC 30.3 G/DL (33.0-37.0); MEAN CORPUSCULAR VOLUME 74.9 FL (81.0-99.0); MEAN PLATELET VOLUME 8.3 FL (7.4-10.4); PLATELET COUNT 415 /CUMM (130-400); RBC DISTRIBUTION WIDTH 18.9 % (11.5-14.5); RED BLOOD CELL CT 4.24 /CUMM (4.20-5.40); WHITE BLOOD CELL COUNT 11.7 /CUMM (4.8-10.8)
[2016-11-18 14:30] LABS: PT 12.1 SEC (9.4-12.5)
--- NOTE | 2016-11-18 14:54 | RADIOLOGY REPORT ---
EXAMINATION: CHEST 2 VIEWS CLINICAL INFORMATION: Chest pain, dyspnea. COMPARISON: 09/12/2016. TECHNIQUE: PA and lateral views of the chest were obtained. FINDINGS: The cardiac silhouette is not enlarged. Intact midline sternal wires are present. The mediastinal and hilar contours are unremarkable. There are neither pleural effusions nor pneumothoraces. There are no consolidations. The osseous structures are unremarkable. IMPRESSION: No evidence for acute disease.
--- NOTE | 2016-11-18 15:08 | RADIOLOGY REPORT ---
EXAMINATION: XR ABDOMEN MULTIPLE VIEWS CLINICAL INDICATION: Abdominal pain. History of filter placement. COMPARISON: Abdomen 09/02/2016 TECHNIQUE: Upright supine AP abdomen FINDINGS: There are 2 IVC filters present. These are unchanged in position since the prior abdomen radiograph of 09/02/2016. There is one filter that is about the level of T12-L1. A second filter is just inferior to the first at L2-L3 level. No bowel dilatation. Moderate volume of stool in colon. Nonobstructive bowel pattern. No radiopaque generous urinary calculi. The calcifications in the pelvis are phleboliths. Lung bases are clear. IMPRESSION: No acute abnormality. [address] unchanged position since prior exam of 09/02/2016.
--- NOTE | 2016-11-18 18:11 | ULTRASOUND REPORT ---
EXAMINATION: DOPPLER VENOUS ULTRASOUND EXTREMITY, LEFT CLINICAL INFORMATION: Left lower extremity edema and swelling. COMPARISON: 11/08/2016. TECHNIQUE: Grayscale, Doppler and spectral analysis of the lower extremity was performed. FINDINGS: There is occlusive thrombus identified extending from the left common femoral vein through to the distal femoral vein. There is no extension into the popliteal vein. ADDITIONAL FINDINGS: No Ku's cyst is identified. IMPRESSION: Again identified is a deep venous thrombosis within the left lower extremity extending from the common femoral vein through to the distal femoral vein. While there was scant flow identified on the prior exam, the thrombus is noted to be occlusive at the current time.
[2016-11-18 19:23] VITALS: BP 119/77
== END 2016-11-18 19:32 ==
LOC: ERH 13:04
PROVIDERS: Emergency Medicine
DX: I82.502 Chronic embolism and thrombosis of unspecified deep veins of left lower extremity (principal); R07.9 Chest pain, unspecified; R06.00 Dyspnea, unspecified; R19.7 Diarrhea, unspecified; R31.9 Hematuria, unspecified
CPT/HCPCS: 74020; 81001

== ENCOUNTER 2016-12-18 14:45 | Emergency (ER) | payer OTHER ==
[~2016-12-18] VITALS: Ht 160 cm; Wt 89.8 kg
[2016-12-18 14:51] VITALS: BP 131/85
--- NOTE | 2016-12-18 14:54 | ED UPPER/LOWER EXTREMITY COMPL ---
History of Present Illness General Chief Complaint: Foot or Ankle Injury Stated Complaint: FOOT PAIN Source: patient, old records Exam Limitations: no limitations Vital Signs & Intake/Output Vital Signs & Intake/Output Vital Signs Date Time Temp Pulse Resp B/P B/P Pulse O2 O2 Flow FiO2 Mean Ox Delivery Rate 12/18 1502 96 12/18 1451 98.2 91 17 131/85 98 Room Air Room Air Allergies Coded Allergies: adhesive (Mild, RASH 12/18/16) latex (UNKNOWN 12/18/16) Reconcile Medications Albuterol Sulfate (Proair Hfa) 90 MCG HFA.AER.AD 2 PUF INH PRN ASTHMA ( Reported) Aspirin (Aspirin*) 81 MG TAB.CHEW 81 MG PO DAILY HEART HEALTH Cetirizine HCl 10 MG TABLET 1 TAB PO QHS ASTHMA (Reported) Cyclobenzaprine HCl 10 MG TABLET 1 TAB PO TID PRN MUSCLE SPASMS (Reported) Duloxetine HCl 30 MG CAPSULE.DR 90 MG PO DAILY MENTAL HEALTH (Reported) Enoxaparin Sodium (Lovenox) 100 MG/ML SYRINGE 100 MG SC BID BLOOD THINNER ( Reported) Furosemide (Lasix) 40 MG TABLET 1 TAB PO BID DIURETIC (Reported) Furosemide (Lasix) 40 MG TABLET 1 TAB PO DAILY LEG EDEMA Gabapentin (Neurontin) 300 MG CAPSULE 1 CAP PO QAM NEUROPATHY (Reported) Gabapentin (Neurontin) 300 MG CAPSULE 2 CAP PO QPM NEUROPATHY (Reported) Insulin Aspart (Novolog) 100 UNIT/ML VIAL 0 UNITS SC TIDAC Diabetes BEFORE MEALS Blood Insulin Sugar Units <80 no coverage 81-150 12 units 150-200 14 units 201-250 16 units 251-300 18 units 301-350 20 units 351-400 22 units >400 Call Doctor Insulin Detemir (Levemir) 100 UNIT/ML VIAL 32 UNITS SC BID blood sugars Insulin Glargine,Hum.rec.anlog (Toujeo Solostar) 300 UNIT/ML (1.5 ML) INSULN.PEN 40 UNITS SC QHS DM (Reported) Lisinopril 5 MG TABLET 1 TAB PO DAILY HTN (Reported) Lorazepam 0.5 MG TABLET 1 TAB PO BIDP PRN ANXIETY (Reported) Mometasone Furoate (Nasonex) 50 MCG SPRAY.PUMP 1 SPRAY NASB DAILY ASTHMA ( Reported) Montelukast Sodium 10 MG TABLET 1 TAB PO QPM ASTHMA (Reported) Oxycodone HCl/Acetaminophen (Oxycodone-Acetaminophen 5-325) 5 MG-325 MG TABLET 1 TAB PO TIDPRN PRN PAIN (Reported) Simvastatin (Simvastatin*) 40 MG TABLET 1 TAB PO QPM HLP (Reported) Tramadol HCl 50 MG TABLET 1 TAB PO BIDP PRN PAIN Trazodone HCl 50 MG TABLET 2 TAB PO QHS PRN SLEEP (Reported) Triage Note: PT TO TRIAGE WITH PAIN TO LEFT LEG. PT STATES SHE WAS DIAGNOSED WITH A DVT IN AUGUST AND SHE HAS HAD PAIN SINCE. STATES SWELLING IS THE SAME BUT PAIN HAS INCREASED. PT DENIES SOB. DENIES OTHER COMPLAINTS Triage Nurses Notes Reviewed? yes Onset: Gradual Duration: constant Timing: recent history Severity: moderate Severity Numbers: 5 Method of Injury: unknown : No Patient currently breastfeeds: No HPI: Patient is a 36-year-old female with past medical history of chronic LEFT LOWER EXTREMITY DVT who has IVC filter placement and chronic leg swelling where she presents to emergency room stating that for the past week she's been without her Lasix and she ran out of her tramadol medications for her chronic lower extremity pain due to DVT. Patient's vascular surgeon is Dr. Linda Booker Patient states that yesterday she was moving BOXES a lot using her legs where she has been complaining of worsening left lower extremity pain and swelling SINCE. Patient denies any mechanism of injury or trauma. Denies any shortness of breath cough chest pain hemoptysis. PT IS COMPLIANT WITH HER LOVENOX Past History Travel History Traveled to [place] past 21 day No Medical History Any Pertinent Medical History? see below for history Neurological: migraine EENT: allergies, sinusitis Cardiovascular: hypertension, hyperlipidemia Respiratory: asthma, pulmonary embolism (recurrent. 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 History of MRSA: No History of VRE: No History of CDIFF: No Tetanus Vaccine: 04/23/14 Surgical History Surgical History: tubal ligation history of massive PE with clot removal excision of a pancreatic tumor splenectomy partial pancreatectomy for benign tumor TUMOR REMOVAL FROM PANCREAS Psychosocial History Who do you live with Family Services at Home None What is your primary language Syriac Tobacco Use: Never used ETOH Use: denies use Illicit Drug Use: denies illicit drug use Family History Family History, If Any: MOTHER (hypertension, diabetes mellitus). FATHER (hypertension, diabetes mellitus). Hx Contributory? No Review of Systems Review of Systems Constitutional: Reports: no symptoms. EENTM: Reports: no symptoms. Respiratory: Reports: no symptoms. Cardiovascular: Reports: see HPI, peripheral edema. Gastrointestinal/Abdominal: Reports: no symptoms. Genitourinary: Reports: no symptoms. Musculoskeletal: Reports: see HPI, muscle pain. Skin: Reports: no symptoms. Neurological/Psychological: Reports: no symptoms. Hematologic/Endocrine: Reports: no symptoms. Immunological: Reports: no symptoms. All Other Systems: Reviewed and Negative Physical Exam Physical Exam General Appearance: no apparent distress, comfortable Neurologic/Tendon: normal sensation, normal motor functions, normal tendon functions, responds to pain, no evidence tendon injury Skin: intact, normal color, warm/dry Comments: Well-developed well-nourished person in no acute distress HEENT: Normal EENT exam, Neck: Supple, no lymphadenopathy, normal range of motion without pain or tenderness Back: Nontender, no CVA tenderness. Cardiovascular: Regular rate and rhythms no murmurs rubs or gallops, normal JVP Respiratory: Chest nontender. No respiratory distress.breath sounds clear to auscultation bilaterally Abdomen: Soft, nontender nondistended, no appreciable organomegaly. Normal bowel sounds. No ascites Extremity: Left lower extremity noted moderate below the knee to the foot swelling dermatomes intact pedal pulse +2 no erythema, generalized point tenderness noted, full active range of motion Neuro: Alert oriented x3, motor sensory normal, Skin: No appreciable rash on exposed skin, skin is warm and dry. Psych: Mood and affect is normal, memory and judgment is normal. Progress Differential Diagnosis: arterial insufficiency, cellulitis, CHF, compartment syndrome, contusion, dislocation, DVT, fracture, gout, septic arthritis, sprain, tendon injury, pe Plan of Care: Orders Procedure Date/time Status US-UNILATERAL VENOUS DOPPLER 12/19 1455 Active Current Medications Sig/Omero Start time Last Medication Dose Stop Time Status Admin Furosemide 40 MG ONE ONE 12/18 1514 UNVr (Lasix) 12/19 1515 Tramadol HCl 50 MG ONCE ONE 12/18 1514 UNVr (Ultram) 12/19 1515 Patient currently is resting comfortable at bedside ultrasound will be obtained patient will be represcribed her medications of Lasix and tramadol which has been verified in her medical reconciliation No concerns at this time of pulmonary embolism or myocardial infarction or cardiovascular or RESPIRATORY ETIOLOGY Patient has chronic unchanged DVT to the left femoral vein from ultrasound findings Patient was strongly advised to begin stocking for compression however she says she did not like stockings on her legs patient was strongly advised to follow-up with vascular surgery. No concerns at this time of PE. On discharge patient looks well no apparent distress and will comply with discharge instructions and had no questions (TAMARA BADILLO,LEAH) Diagnostic Imaging: Viewed by Me: Ultrasound. Radiology Impression: SEE COMMENTS Comments: PATIENT: JAIMIE CHEN PRESENT AGE: 36 PATIENT ACCOUNT NO: [id number] : 81 LOCATION: [facility] ORDERING PHYSICIAN: LEAH BADILLO SERVICE DATE: 12/18/16 EXAM TYPE: US - US-UNILATERAL VENOUS DOPPLER EXAMINATION: US TRIPLEX LOWER EXTREMITY, LEFT CLINICAL INFORMATION: Left leg swelling and pain COMPARISON: 11/18/2016 TECHNIQUE: Color-flow triplex imaging with spectral analysis and compression Doppler were performed on the lower extremity. FINDINGS: Once again seen is chronic thrombus present in the femoral vein just above the knee extending up into the common femoral vein. Appearances are quite similar to that seen in the November 18 study. The profunda femoral vein, popliteal vein and midcalf peroneal and posterior tibial venous segments show no evidence of deep venous thrombosis. There is no Ku's cyst. IMPRESSION: Continued presence of thrombus in left femoral vein extending into common femoral vein. DICTATED BY: ZAIN COTTON MD DATE/TIME DICTATED:12/18/161615 Departure Departure Disposition: HOME OR SELF CARE Condition: Stable Clinical Impression Primary Impression: DVT, femoral, chronic Referrals: BARRY MEZAC,EMETERIO (PCP/Family) Additional Instructions: As discussed begin to elevate her feet for swelling. Begin the prescription of tramadol for pain. Continue home medications as directed especially your Lovenox. Begin the prescription Lasix as directed. Follow-up on Monday with your establish vascular surgeon. If symptoms worsen return to emergency room. Prescriptions waiting at [facility]. Departure Forms: Customer Survey General Discharge Information Prescriptions: Current Visit Scripts Tramadol HCl 1 TAB PO BIDP PRN PAIN #8 TAB Furosemide (Lasix) 1 TAB PO DAILY #7 TAB
--- NOTE | 2016-12-18 16:22 | ULTRASOUND REPORT ---
EXAMINATION: US TRIPLEX LOWER EXTREMITY, LEFT CLINICAL INFORMATION: Left leg swelling and pain COMPARISON: 11/18/2016 TECHNIQUE: Color-flow triplex imaging with spectral analysis and compression Doppler were performed on the lower extremity. FINDINGS: Once again seen is chronic thrombus present in the femoral vein just above the knee extending up into the common femoral vein. Appearances are quite similar to that seen in the November 18 study. The profunda femoral vein, popliteal vein and midcalf peroneal and posterior tibial venous segments show no evidence of deep venous thrombosis. There is no Ku's cyst. IMPRESSION: Continued presence of thrombus in left femoral vein extending into common femoral vein.
[2016-12-18] MEDS ORDERED: TRAMADOL HCL50 M1 PO (16:29)
[2016-12-18] MEDS ORDERED: LASIX40 M1 PO (16:29)
[2016-12-19] MEDS ORDERED: ZOFRAN ODT4 M1 SL (19:07)
[2016-12-19] MEDS ORDERED: LEVSIN-SL0.125 MG SL (19:07)
== END 2016-12-18 16:35 ==
LOC: ERH 14:45
DX: I82.512 Chronic embolism and thrombosis of left femoral vein (principal)

== ENCOUNTER 2016-12-19 15:00 | Emergency (ER) | payer OTHER ==
[~2016-12-19] VITALS: Ht 160 cm; Wt 89.8 kg
[~2016-12-19 15:00] MED LIST changes: +TRAMADOL HCL50 M1 PO
--- NOTE | 2016-12-19 16:39 | ED GI/GU/ABDOMINAL COMPLAINT ---
History of Present Illness General Chief Complaint: Dyspnea (COPD, CHF, Other) Stated Complaint: SOB/TORIBIO Source: patient, family, old records Exam Limitations: no limitations Vital Signs & Intake/Output Vital Signs & Intake/Output Vital Signs Date Time Temp Pulse Resp B/P B/P Pulse O2 O2 Flow FiO2 Mean Ox Delivery Rate 12/19 1816 100.6 12/19 1732 98 Nasal 2.0L Cannula 12/19 1718 100.6 92 24 124/76 99 Nasal 2.0L Cannula 12/19 1504 98.6 97 18 134/88 90 Room Air Allergies Coded Allergies: adhesive (Mild, RASH 12/18/16) latex (UNKNOWN 12/18/16) Reconcile Medications Albuterol Sulfate (Proair Hfa) 90 MCG HFA.AER.AD 2 PUF INH PRN ASTHMA ( Reported) Aspirin (Aspirin*) 81 MG TAB.CHEW 81 MG PO DAILY HEART HEALTH Cetirizine HCl 10 MG TABLET 1 TAB PO QHS ASTHMA (Reported) Cyclobenzaprine HCl 10 MG TABLET 1 TAB PO TID PRN MUSCLE SPASMS (Reported) Duloxetine HCl 30 MG CAPSULE.DR 90 MG PO DAILY MENTAL HEALTH (Reported) Enoxaparin Sodium (Lovenox) 100 MG/ML SYRINGE 100 MG SC BID BLOOD THINNER ( Reported) Furosemide (Lasix) 40 MG TABLET 1 TAB PO BID DIURETIC (Reported) Gabapentin (Neurontin) 300 MG CAPSULE 1 CAP PO QAM NEUROPATHY (Reported) Gabapentin (Neurontin) 300 MG CAPSULE 2 CAP PO QPM NEUROPATHY (Reported) Insulin Aspart (Novolog) 100 UNIT/ML VIAL 0 UNITS SC TIDAC Diabetes BEFORE MEALS Blood Insulin Sugar Units <80 no coverage 81-150 12 units 150-200 14 units 201-250 16 units 251-300 18 units 301-350 20 units 351-400 22 units >400 Call Doctor Insulin Detemir (Levemir) 100 UNIT/ML VIAL 32 UNITS SC BID blood sugars Insulin Glargine,Hum.rec.anlog (Toujeo Solostar) 300 UNIT/ML (1.5 ML) INSULN.PEN 40 UNITS SC QHS DM (Reported) Lisinopril 5 MG TABLET 1 TAB PO DAILY HTN (Reported) Lorazepam 0.5 MG TABLET 1 TAB PO BIDP PRN ANXIETY (Reported) Mometasone Furoate (Nasonex) 50 MCG SPRAY.PUMP 1 SPRAY NASB DAILY ASTHMA ( Reported) Montelukast Sodium 10 MG TABLET 1 TAB PO QPM ASTHMA (Reported) Oxycodone HCl/Acetaminophen (Oxycodone-Acetaminophen 5-325) 5 MG-325 MG TABLET 1 TAB PO TIDPRN PRN PAIN (Reported) Simvastatin (Simvastatin*) 40 MG TABLET 1 TAB PO QPM HLP (Reported) Tramadol HCl 50 MG TABLET 1 TAB PO BIDP PRN PAIN Trazodone HCl 50 MG TABLET 2 TAB PO QHS PRN SLEEP (Reported) Triage Note: 36 YO FEMALE TO ER C/O SHORTNESS OF BREATHE. PT STATES SHE WAS DX WITH A BLOOD CLOT YESTERDAY IN BILATERAL LEGS. STATES WAS SENT HOME WITH OXGYEN. PT ARRIVES TODAY C/O PAIN ALL OVER BODY AND SOB. SATS 96% ON ROOM AIR AT THIS TIME. PT DID NOT BRING OXYGEN TO ER, STATING "WE JUST CAME, WE DIDNT THINK OF IT" PT PALE IN TRIAGE CHARGE NURSES AWARE Triage Nurses Notes Reviewed? yes LMP (ages 10-50): unknown ? n Is pt currently ? No Onset: Evening Duration: hour(s):, continues in ED Timing: recent history Quality/Severity: aching, cramping, moderate, severe, vomiting Location: generalized abdomen Radiation: no radiation Activities at Onset: eating Prior Abdominal Problems: none Past Sexual History: Unobtainable at this time Modifying Factors: Worsens With: eating. Associated Symptoms: abdominal pain, loss of appetite, nausea/vomiting HPI: Evening prior to admission after visiting her mother she developed intermittent generalized abdominal cramping associated with nausea vomiting unable to tolerate liquid or solid food. She came to the hospital without her oxygen and feels short of breath. She denies fever chills diarrhea chest pain cough shortness of breath (with oxygen) cough dysuria rash bleeding. Past History Travel History Traveled to [place] past 21 day No Medical History Any Pertinent Medical History? see below for history Neurological: migraine EENT: allergies, sinusitis Cardiovascular: hypertension, hyperlipidemia Respiratory: asthma, pulmonary embolism (recurrent. 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 History of MRSA: No History of VRE: No History of CDIFF: No Tetanus Vaccine: 04/23/14 Surgical History Surgical History: tubal ligation history of massive PE with clot removal excision of a pancreatic tumor splenectomy partial pancreatectomy for benign tumor TUMOR REMOVAL FROM PANCREAS Psychosocial History Who do you live with Family Services at Home None What is your primary language Sami Tobacco Use: Never used Family History Family History, If Any: MOTHER (hypertension, diabetes mellitus). FATHER (hypertension, diabetes mellitus). Hx Contributory? No Review of Systems Review of Systems Constitutional: Reports: see HPI, weakness. EENTM: Reports: no symptoms. Respiratory: Reports: see HPI, short of breath. Cardiovascular: Reports: no symptoms. GI: Reports: see HPI, abdominal pain, nausea, vomiting. Genitourinary: Reports: no symptoms. Musculoskeletal: Reports: no symptoms. Skin: Reports: no symptoms. Neurological/Psychological: Reports: no symptoms. Hematologic/Endocrine: Reports: no symptoms. Immunologic/Allergic: Reports: no symptoms. All Other Systems: Reviewed and Negative Physical Exam Physical Exam General Appearance: well developed/nourished, alert, awake, anxious, moderate distress, obese Head: atraumatic, normal appearance Eyes: Bilateral: normal appearance, PERRL, EOMI. Ears, Nose, Throat, Mouth: hearing grossly normal Neck: normal inspection, supple, full range of motion, normal alignment Respiratory: chest non-tender, no respiratory distress, quiet respiration, lungs clear, decreased breath sounds Cardiovascular: regular rate/rhythm, normal peripheral pulses, norml femoral pulses equa Peripheral Pulses: 4+ carotid (R), 4+ carotid (L) Gastrointestinal: normal bowel sounds, soft, non-tender, no organomegaly Back: normal inspection, normal range of motion Extremities: normal range of motion, no ligament instability Neurologic/Psych: no motor/sensory deficits, awake, alert, oriented x 3, normal gait, normal mood/affect, probation agent II-XII nml as tested Skin: normal color Core Measures ACS in differential dx? No Severe Sepsis Present: No Septic Shock Present: No Progress Differential Diagnosis: biliary colic, cholecystitis, diverticulitis, gastritis, pancreatitis Plan of Care: Orders Procedure Date/time Status URINALYSIS 12/19 163 Active LIPASE 12/19 163 Complete COMPREHENSIVE METABOLIC PANEL 12/19 163 Complete CBC WITHOUT DIFFERENTIAL 12/19 163 Complete Laboratory Tests 12/19/16 1855: Urine Color Pending, Urine Clarity Pending, Urine pH Pending, Ur Specific [place] Pending, Urine Protein Pending, Urine Ketones Pending, Urine Nitrite Pending, Urine Bilirubin Pending, Urine Urobilinogen Pending, Ur Leukocyte Esterase Pending, Ur Microscopic SEDIMENT EXAMINED, Urine RBC Pending, Urine Hemoglobin Pending, Urine Glucose Pending 12/19/16 1700: Anion Gap 12, Estimated GFR > 60, BUN/Creatinine Ratio 16.0, Glucose 137 H, Calcium 8.6, Total Bilirubin 0.9, AST 44 H, ALT 32, Alkaline Phosphatase 95, Total Protein 8.4 H, Albumin 4.3, Globulin 4.1, Albumin/Globulin Ratio 1.0 L, Lipase 12 L, CBC w Diff NO MAN DIFF REQ, RBC 4.49, MCV 72.3 L, MCH 22.0 L, RDW 19.8 H, MPV 8.3, Gran % 72.8, Lymphocytes % 19.1 L, Monocytes % 7.9, Eosinophils % 0.2, Basophils % 0 L, Absolute Granulocytes 11.9 H, Absolute Lymphocytes 3.1, Absolute Monocytes 1.3 H, Absolute Eosinophils 0, Absolute Basophils 0, PUBS MCHC 30.4 L Diagnostic Imaging: Viewed by Me: Radiology Read. Discussed w/RAD: Radiology Read. CXR Impression: no acute abnormality, no infiltrates, normal size heart Initial ED EKG: none Comments: Improved after interventions and feels much better. Departure Departure Time of Disposition: 1929 Disposition: HOME OR SELF CARE Condition: Stable Clinical Impression Primary Impression: Nausea and vomiting Qualifiers: Vomiting type: unspecified Vomiting Intractability: non-intractable Qualified Code: R11.2 - Nausea with vomiting, unspecified Secondary Impressions: Abdominal pain Qualifiers: Abdominal location: generalized Qualified Code: R10.84 - Generalized abdominal pain Dehydration syndrome Referrals: EMETERIO JEFFRIES (PCP/Family) Additional Instructions: Clear liquids for 12-24 hours until better Departure Forms: Customer Survey General Discharge Information Prescriptions: Current Visit Scripts Ondansetron (Zofran Odt) 1 TAB SL TID PRN nausea #15 TAB Hyoscyamine Sulfate (Levsin-Sl) 1-2 TAB SL Q4P PRN abdominal pain #30 TAB
[2016-12-19 17:09] LABS: ABSOLUTE BASOPHIL COUNT 0 /CUMM (0.0-0.2); ABSOLUTE EOSINOPHIL COUNT 0 /CUMM (0.0-0.7); ABSOLUTE GRANULOCYTE CT 11.9 /CUMM (1.4-6.5); ABSOLUTE LYMPH COUNT 3.1 /CUMM (1.2-3.4); ABSOLUTE MONOCYTE COUNT 1.3 /CUMM (0.10-0.60); BASOPHIL % 0 % (0.0-2.0); EOSINOPHIL % 0.2 % (0-5); GRANULOCYTE % 72.8 % (42.2-75.2); HEMATOCRIT 32.4 % (37-47); MEAN CORPUSCULAR HGB CONC 30.4 G/DL (33.0-37.0); MEAN CORPUSCULAR VOLUME 72.3 FL (81.0-99.0); MEAN PLATELET VOLUME 8.3 FL (7.4-10.4); PLATELET COUNT 624 /CUMM (130-400); RBC DISTRIBUTION WIDTH 19.8 % (11.5-14.5); RED BLOOD CELL CT 4.49 /CUMM (4.20-5.40)
[2016-12-19 17:22] LABS: WHITE BLOOD CELL COUNT 16.3 /CUMM (4.8-10.8)
--- NOTE | 2016-12-19 18:40 | RADIOLOGY REPORT ---
EXAMINATION: XR PORTABLE CHEST CLINICAL INFORMATION: Nausea vomiting fever history of pulmonary embolism and filter. COMPARISON: Chest x-ray October 2016 TECHNIQUE: Portable frontal view of the chest was obtained. FINDINGS: Sternotomy wires are present. Lungs clear. The cardiac silhouette mediastinum pulmonary vascularity are normal. Bone and soft tissues unremarkable IMPRESSION: No acute disease
[2016-12-19] MEDS ORDERED: ZOFRAN ODT4 M1 SL (19:07)
[2016-12-19] MEDS ORDERED: LEVSIN-SL0.125 MG SL (19:07)
[2016-12-19 19:18] VITALS: BP 116/77
== END 2016-12-19 19:19 ==
LOC: ERH 15:00
PROVIDERS: Emergency Medicine
DX: R11.2 Nausea with vomiting, unspecified (principal); R10.84 Generalized abdominal pain
CPT/HCPCS: 81001; 96374; 96375; J0131; J2765

== ENCOUNTER 2016-12-29 12:44 | Emergency (ER) | payer OTHER ==
[~2016-12-29 12:44] MED LIST changes: +LEVSIN-SL0.125 MG SL; +ZOFRAN ODT4 M1 SL
--- NOTE | 2016-12-29 13:06 | ED GI/GU/ABDOMINAL COMPLAINT ---
History of Present Illness General Chief Complaint: Abdominal Pain/Flank Pain Stated Complaint: BACK PAIN, VOMITING, OLIGURIA SINCE 7AM Source: patient, old records Exam Limitations: no limitations Vital Signs & Intake/Output Vital Signs & Intake/Output Vital Signs Date Time Temp Pulse Resp B/P B/P Pulse O2 O2 Flow FiO2 Mean Ox Delivery Rate 12/29 2040 98.2 80 18 114/58 94 Nasal 2.0L Cannula 12/29 1737 98.5 88 18 122/64 92 12/29 1450 97.8 99 18 155/90 96 12/29 1254 97.8 12/29 1251 69 22 149/90 97 Allergies Coded Allergies: adhesive (Mild, RASH 12/18/16) latex (UNKNOWN 12/18/16) Reconcile Medications Albuterol Sulfate (Proair Hfa) 90 MCG HFA.AER.AD 2 PUF INH PRN ASTHMA ( Reported) Aspirin (Aspirin*) 81 MG TAB.CHEW 81 MG PO DAILY HEART HEALTH Brexpiprazole (Rexulti) 1 MG TABLET 1 TAB PO DAILY DEPRESSION (Reported) Cetirizine HCl 10 MG TABLET 1 TAB PO QHS ASTHMA (Reported) Cyclobenzaprine HCl 10 MG TABLET 1 TAB PO TID PRN MUSCLE SPASMS (Reported) Duloxetine HCl 30 MG CAPSULE.DR 90 MG PO DAILY MENTAL HEALTH (Reported) Enoxaparin Sodium (Lovenox) 100 MG/ML SYRINGE 100 MG SC BID BLOOD THINNER ( Reported) Furosemide (Lasix) 40 MG TABLET 1 TAB PO BID DIURETIC (Reported) Gabapentin (Neurontin) 300 MG CAPSULE 1 CAP PO QAM NEUROPATHY (Reported) Gabapentin (Neurontin) 300 MG CAPSULE 2 CAP PO QPM NEUROPATHY (Reported) Hyoscyamine Sulfate (Levsin-Sl) 0.125 MG TAB.SUBL 1-2 TAB SL Q4P PRN abdominal pain Insulin Aspart (Novolog) 100 UNIT/ML VIAL 0 UNITS SC TIDAC Diabetes BEFORE MEALS Blood Insulin Sugar Units <80 no coverage 81-150 12 units 150-200 14 units 201-250 16 units 251-300 18 units 301-350 20 units 351-400 22 units >400 Call Doctor Insulin Detemir (Levemir) 100 UNIT/ML VIAL 32 UNITS SC BID blood sugars Insulin Glargine,Hum.rec.anlog (Toujeo Solostar) 300 UNIT/ML (1.5 ML) INSULN.PEN 40 UNITS SC QHS DM (Reported) Iron Carb,Gl/FA/B12/C/Docusate (Ferralet 90 Tablet) 90 MG-1 MG-12 MCG-120 MG-50 MG TABLET 1 TAB PO BID SUPPLEMENT (Reported) Lisinopril 5 MG TABLET 1 TAB PO DAILY HTN (Reported) Lorazepam 0.5 MG TABLET 1 TAB PO BIDP PRN ANXIETY (Reported) Lorazepam 1 MG TABLET 1 TAB PO BID PRN ANXIETY (Reported) Mometasone Furoate (Nasonex) 50 MCG SPRAY.PUMP 1 SPRAY NASB DAILY ASTHMA ( Reported) Montelukast Sodium 10 MG TABLET 1 TAB PO QPM ASTHMA (Reported) Ondansetron (Zofran Odt) 4 MG TAB.RAPDIS 1 TAB SL TID PRN nausea Simvastatin (Simvastatin*) 40 MG TABLET 1 TAB PO QPM HLP (Reported) Trazodone HCl 50 MG TABLET 2 TAB PO QHS PRN SLEEP (Reported) Zolpidem Tartrate 5 MG TABLET 1 TAB PO QPM SLEEP (Reported) Triage Note: PER PT STARTED VOMITING THIS AM, PT REPORTS [place] LAST NIGHT, NOT VOIDING THIS AM Triage Nurses Notes Reviewed? yes ? n Is pt currently ? No Onset: Abrupt Duration: hour(s):, constant, getting worse Timing: recent history Quality/Severity: moderate, sharpness, severe Location: back Activities at Onset: none No Modifying Factors: none HPI: 36-year-old female comes into the emergency room with complaints of back pain and abdominal pain. Associated vomiting. History of pulmonary embolism is on Lovenox. Denies any chest pain shortness of breath. Decrease in urination. Nothing seems to make the symptoms better or worse. Denies any other associated symptoms. Sharp pain. Severe. Continuous. (BETO ROMERO) Past History Travel History Traveled to [place] past 21 day No Medical History Any Pertinent Medical History? see below for history Neurological: migraine EENT: allergies, sinusitis Cardiovascular: hypertension, hyperlipidemia Respiratory: asthma, pulmonary embolism (recurrent. on coumadin) Gastrointestinal: s/p partial pancreatectomy Hepatic: NONE Renal: nephrolithiasis Musculoskeletal: costochondritis Psychiatric: depression Endocrine: diabetes Blood Disorders: anemia Cancer(s): NONE DIRECTOR DIGITAL ANALYTICS/Reproductive: NONE Other Medical Hx: Lupus anticoagulant and antiphospholipid antibody syndrome Sepsis diabetes, recurrent pulmonary embolus S/P thrombectomy 2008 and IVF filter 2015 with last admission PE February 2016, antiphospholipid antibody syndrome/lupus anticoagulants (on lovenox 150 mg subcutaneous daily), asthma on home oxygen 2 L, anemia, hypertension, hyperlipidemia, chronic back pain , 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 History of MRSA: No History of VRE: No History of CDIFF: No Tetanus Vaccine: 04/23/14 Surgical History Surgical History: tubal ligation history of massive PE with clot removal excision of a pancreatic tumor splenectomy partial pancreatectomy for benign tumor TUMOR REMOVAL FROM PANCREAS Psychosocial History Who do you live with Family Services at Home None What is your primary language Hebrew Tobacco Use: Never used Family History Family History, If Any: MOTHER (hypertension, diabetes mellitus). FATHER (hypertension, diabetes mellitus). Hx Contributory? No (BETO ROMERO) Review of Systems Review of Systems Constitutional: Reports: no symptoms. EENTM: Reports: no symptoms. Respiratory: Reports: no symptoms. Cardiovascular: Reports: no symptoms. GI: Reports: see HPI. Genitourinary: Reports: see HPI. Musculoskeletal: Reports: no symptoms. Skin: Reports: no symptoms. Neurological/Psychological: Reports: no symptoms. Hematologic/Endocrine: Reports: no symptoms. Immunologic/Allergic: Reports: no symptoms. All Other Systems: Reviewed and Negative (BETO ROMERO) Physical Exam Physical Exam General Appearance: alert, awake, moderate distress Head: atraumatic, normal appearance Eyes: Bilateral: normal appearance. Ears, Nose, Throat, Mouth: hearing grossly normal, moist mucous membrane Neck: normal inspection, full range of motion Respiratory: normal breath sounds, no respiratory distress Cardiovascular: regular rate/rhythm Gastrointestinal: soft, tenderness Back: normal inspection Extremities: normal range of motion Neurologic/Psych: awake, alert, oriented x 3, normal gait, normal mood/affect Skin: intact, normal color Core Measures ACS in differential dx? No Severe Sepsis Present: No Septic Shock Present: No (BETO ROMERO) Progress Differential Diagnosis: appendicitis, biliary colic, bowel obstruction, cholecystitis, diverticulitis, ectopic , gastritis, hepatitis, hernia, hemorrhoids, ischemic bowel, inflamm bowel dis, intrauterine , kidney stone, ovarian cyst, ovarian torsion, pancreatitis, PID/cervicitis, peptic ulcer , PUD/GERD, perforated viscous, SBO, threatened AB, UTI/pyelo Plan of Care: Orders Procedure Date/time Status EKG 12/29 1751 Active URINALYSIS 12/29 130 Complete LIPASE 12/29 130 Complete HUMAN BETA HCG SCREEN 12/29 130 Complete COMPREHENSIVE METABOLIC PANEL 12/29 130 Complete CBC WITHOUT DIFFERENTIAL 12/29 1304 Complete AMYLASE 12/29 130 Complete Laboratory Tests 12/29/16 1350: Urinalysis MANY H, Urine Color YEL, Urine Clarity CLEAR, Urine pH 7.0, Ur Specific [place] 1.020, Urine Protein 100 H, Urine Ketones TRACE H, Urine Nitrite NEG, Urine Bilirubin NEG, Urine Urobilinogen 0.2, Ur Leukocyte Esterase NEG, Ur Microscopic SEDIMENT EXAMINED, Urine RBC 1-3, Urine WBC RARE, Ur Epithelial Cells MOD H, Urine Bacteria RARE H, Urine Mucus MOD H, Urine Hemoglobin NEG, Urine Glucose 250 H 12/29/16 1342: Anion Gap 14, Estimated GFR > 60, BUN/Creatinine Ratio 24.0, Glucose 275 H, Calcium 9.0, Total Bilirubin 0.5, AST 16, ALT 24, Alkaline Phosphatase 138 H, Total Protein 7.3, Albumin 3.5, Globulin 3.8, Albumin/Globulin Ratio 0.9 L, Amylase 32, Lipase 24, Total Beta HCG NEGATIVE, CBC w Diff MAN DIFF ORDERED, RBC 4.50, MCV 71.9 L, MCH 21.4 L, RDW 19.7 H, MPV 7.9, Gran % 82.3 H, Lymphocytes % 13.3 L, Monocytes % 3.8, Eosinophils % 0.1, Basophils % 0.5, Absolute Granulocytes 13.6 H, Absolute Lymphocytes 2.2, Absolute Monocytes 0.6, Absolute Eosinophils 0, Absolute Basophils 0.1, Polychromasia 1+, Hypochromic- Microcytic 2+, Poikilocytosis 3+, Anisocytosis 3+, Macrocytic Cells 3+, Target Cells FEW, [place] Cells 1+, PUBS MCHC 29.7 L Diagnostic Imaging: Viewed by Me: CT Scan. Discussed w/RAD: CT Scan. Radiology Impression: SERVICE DATE: 12/29/16-1553 EXAM TYPE: CAT - CT ABD & PELVIS W IV CONTRAST EXAMINATION: CT ABDOMEN AND PELVIS WITH CONTRAST CLINICAL INFORMATION: Question IVC thrombosis on noncontrast CT COMPARISON: Noncontrast exam performed earlier the same day. TECHNIQUE: Multidetector volumetric imaging was performed of the abdomen and pelvis before and after the IV administration of 95 mL of Optiray 320 intravenous contrast. Sagittal and coronal reformatted images were obtained on the technologist's workstation. DLP: 615 mGy-cm FINDINGS : The inferior vena cava is completely thrombosed from the top of the inferior filter through the superior filter, into the intrahepatic IVC extending cephalad into the lower right atrium. This also appears to be extending into a dilated accessory hepatic vein in the right lobe of the liver and into the right renal vein, in part the etiology of the enlarged right kidney. No left renal vein thrombus is seen. The right hydroureteronephrosis remains indeterminate in etiology once again possibly a recently passed stone or external compression versus developing fibrosis? There also appears to be thrombus in the left external iliac vein and possibly into the left common femoral vein. There is indeterminate hypodensity in the left upper quadrant between the stomach and upper portion of the left kidney which may simply represent nonopacified small bowel loops. Numerous collaterals and small indeterminant mesenteric and retroperitoneal lymph nodes are also again noted. IMPRESSION: 1. The inferior vena cava is thrombosed containing 2 IVC filters with clot extending into the right atrium, right renal vein, and a hepatic vein on the right side, likely an accessory draining vein. 2. Clot is also suspected in the left external iliac vein and possibly into the left femoral vein. 3. Right kidney is enlarged with hydroureteronephrosis again noted and small right renal calculi, no definite ureteral calculi are seen, etiology remains indeterminate. Mass in the 4. Indeterminate low-density mass in the left upper quadrant likely a grouping of small bowel loops that aren't opacified. Critical result: Inferior vena cava thrombosis extending into the right atrium and right renal vein was discussed with Dr. Beto Tan at 1645 hrs on the day of the exam. It was ascertained that the content and urgency of the report was understood at the time of direct communication., IMPRESSION: 1. Right-sided urolithiasis with an enlarged kidney and hydroureteronephrosis without evidence of an obstructing calculus at this time. This may simply represent a recently passed stone, however given the amount of soft tissue stranding in the retroperitoneum and a relatively decompressed distal ureter another cause of obstruction including retroperitoneal fibrosis is not excluded. Neurologic consultation should be considered. 2. 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 CT imaging with contrast or MR imaging of the abdomen and pelvis with and without contrast could be performed to further evaluate the above findings. 3. Probable cystic changes in left ovary. This could also be further evaluated on the postcontrast exam. Above findings and need for additional imaging were discussed directly with Dr. Tan, the referring provider, currently caring for the patient at 1545 hours on the day of the exam. DICTATED BY: SAGE DUMAS MD DATE/TIME DICTATED:12/29/161455 VOCATIONAL TRAINING INSTRUCTOR:BRAIN DATE/TIME TRANSCRIBED:12/29/161455 CONFIDENTIAL, DO NOT COPY WITHOUT APPROPRIATE AUTHORIZATION. Initial ED EKG: normal intervals, normal p-waves, normal sinus rhythm, rate (82) (BETO ROMERO) Departure Departure Disposition: OTHER [facility] (ACUTE) Condition: Stable Clinical Impression Primary Impression: Inferior vena cava thromboembolism, acute Secondary Impressions: Hydroureteronephrosis Referrals: EMETERIO JEFFRIES (PCP/Family) Departure Forms: Customer Survey General Discharge Information Comments 12/29/2016 7:08:31 PM Due to the extensive amount of clot seen in the fact the patient is currently on anticoagulation has been on 2 other previous medications for anticoagulation she may require further evaluation and possible thrombectomy as well as tPA. His been side of the patient will be transferred to [facility] where she has been seen before for similar stuff. Patient was seen and evaluated by Dr. Gutierrez. I spoke with the hospitalist at [facility] who is going to accept the patient. Patient is waiting on a direct bed. (BETO ROMERO) PA/CONCRETE BATCHING PLANT OPERATOR Co-Sign Statement Statement: ED Attending supervision documentation- [x] I saw and evaluated the patient. I have also reviewed all the pertinent lab results and diagnostic results. I agree with the findings and the plan of care as documented in the PA's/CONCRETE BATCHING PLANT OPERATOR's documentation. [] I have reviewed the ED Record and agree with the PA's/CONCRETE BATCHING PLANT OPERATOR's documentation. [] Additions or exceptions (if any) to the PAs/CONCRETE BATCHING PLANT OPERATOR's note and plan are summarized below: [] (LYNN GUTIERREZ DO) Critical Care Note Critical Care Note Critical Care Time: 30-74 min (35) (JOSE ALBERTO BADILLO,BETO)
[2016-12-29 13:54] LABS: ABSOLUTE BASOPHIL COUNT 0.1 /CUMM (0.0-0.2); ABSOLUTE EOSINOPHIL COUNT 0 /CUMM (0.0-0.7); ABSOLUTE GRANULOCYTE CT 13.6 /CUMM (1.4-6.5); ABSOLUTE LYMPH COUNT 2.2 /CUMM (1.2-3.4); ABSOLUTE MONOCYTE COUNT 0.6 /CUMM (0.10-0.60); BASOPHIL % 0.5 % (0.0-2.0); EOSINOPHIL % 0.1 % (0-5); GRANULOCYTE % 82.3 % (42.2-75.2); HEMATOCRIT 32.3 % (37-47); MEAN CORPUSCULAR HGB 21.4 PG (27.0-31.0); MEAN CORPUSCULAR HGB CONC 29.7 G/DL (33.0-37.0); MEAN CORPUSCULAR VOLUME 71.9 FL (81.0-99.0); MEAN PLATELET VOLUME 7.9 FL (7.4-10.4); PLATELET COUNT 535 /CUMM (130-400); RBC DISTRIBUTION WIDTH 19.7 % (11.5-14.5); WHITE BLOOD CELL COUNT 16.6 /CUMM (4.8-10.8)
--- NOTE | 2016-12-29 16:17 | CT SCAN REPORT ---
EXAMINATION: CT ABDOMEN AND PELVIS WITHOUT CONTRAST CLINICAL INFORMATION: Back pain, decreased urination. COMPARISON: 06/28/2016. TECHNIQUE: Multidetector volumetric imaging was performed from the superior aspect of the liver through the pubic symphysis. Sagittal and coronal reformatted images were obtained on the technologist's workstation. DLP: 752 mGy-cm FINDINGS: LUNG BASES: Patchy ground-glass opacity left lower lobe unchanged indeterminate in etiology. LIVER AND SPLEEN: Liver appears mildly enlarged, unchanged, the spleen is not visualized likely previously removed. PANCREAS GALLBLADDER AND BILIARY TREE: Findings suggest a previous distal pancreatectomy as well as splenectomy noted above, unchanged. Proximal pancreas appears unremarkable. Gallbladder is not visualized likely previously removed, biliary tree appears unremarkable. KIDNEYS, URETERS, AND ADRENALS: Multiple small right renal calculi appear unchanged, however the right kidney is enlarged and the ureter is dilated throughout its course to the bladder with moderate soft tissue stranding surrounding the mid to distal ureter just above the uterus most notably. Ureter is less prominent distally. There is no evidence of ureterolithiasis or urinary bladder calculi findings are most suggestive of a recently passed calculus, however, an underlying stricture or other retroperitoneal process is not excluded. The sigmoid colon does loop superiorly just anterior to this region, and a normal-appearing appendix is also seen more inferiorly anterior to the uterus as well. URINARY BLADDER: Partially fluid-filled without evidence of calculi or masses. GI TRACT: Largely unremarkable, there may be a few scattered diverticula in the distal descending and sigmoid colon without evidence of diverticulitis. Cecum is on a long mesentery in the midabdomen above the umbilicus with a normal appendix again noted. PERITONEAL CAVITY: There is no intraperitoneal free fluid. RETROPERITONEUM: There are multiple small retroperitoneal lymph nodes which are new or increased from the previous exam with a dilated left ovarian vein and what appears to be multiple collaterals in the pelvis and anterior abdominal wall. There are dual suprarenal and infrarenal IVC filter is in place. Distal to the more inferior filter the IVC appears collapsed, the combination of the above findings suggest IVC thrombosis. Why the right ureter is dilated to the level of the uterus and decompressed distally remains indeterminate. Could there be developing retroperitoneal fibrosis? PELVIC ORGANS: Adnexa appear somewhat prominent left side greater than right possibly just cystic changes, however this could partially be due to IVC thrombosis as well. Uterus is also larger than the previous exam some of which may be physiologic currently 14.5 cm maximal longitudinal dimension previously 13. OSSEOUS STRUCTURES: No aggressive osseous lesions are seen. ANTERIOR ABDOMINAL WALL AND SOFT TISSUES: Multiple anterior abdominal wall collaterals are suggested, there is skin thickening with multiple small vessels just deep to the skin likely related to suspected IVC thrombosis. No significant appearing hernias are identified. IMPRESSION: 1. Right-sided urolithiasis with an enlarged kidney and hydroureteronephrosis without evidence of an obstructing calculus at this time. This may simply represent a recently passed stone, however given the amount of soft tissue stranding in the retroperitoneum and a relatively decompressed distal ureter another cause of obstruction including retroperitoneal fibrosis is not excluded. Neurologic consultation should be considered. 2. 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 CT imaging with contrast or MR imaging of the abdomen and pelvis with and without contrast could be performed to further evaluate the above findings. 3. Probable cystic changes in left ovary. This could also be further evaluated on the postcontrast exam. Above findings and need for additional imaging were discussed directly with Dr. Tan, the referring provider, currently caring for the patient at 1545 hours on the day of the exam.
--- NOTE | 2016-12-29 17:08 | CT SCAN REPORT ---
EXAMINATION: CT ABDOMEN AND PELVIS WITH CONTRAST CLINICAL INFORMATION: Question IVC thrombosis on noncontrast CT COMPARISON: Noncontrast exam performed earlier the same day. TECHNIQUE: Multidetector volumetric imaging was performed of the abdomen and pelvis before and after the IV administration of 95 mL of Optiray 320 intravenous contrast. Sagittal and coronal reformatted images were obtained on the technologist's workstation. DLP: 615 mGy-cm FINDINGS: The inferior vena cava is completely thrombosed from the top of the inferior filter through the superior filter, into the intrahepatic IVC extending cephalad into the lower right atrium. This also appears to be extending into a dilated accessory hepatic vein in the right lobe of the liver and into the right renal vein, in part the etiology of the enlarged right kidney. No left renal vein thrombus is seen. The right hydroureteronephrosis remains indeterminate in etiology once again possibly a recently passed stone or external compression versus developing fibrosis? There also appears to be thrombus in the left external iliac vein and possibly into the left common femoral vein. There is indeterminate hypodensity in the left upper quadrant between the stomach and upper portion of the left kidney which may simply represent nonopacified small bowel loops. Numerous collaterals and small indeterminant mesenteric and retroperitoneal lymph nodes are also again noted. IMPRESSION: 1. The inferior vena cava is thrombosed containing 2 IVC filters with clot extending into the right atrium, right renal vein, and a hepatic vein on the right side, likely an accessory draining vein. 2. Clot is also suspected in the left external iliac vein and possibly into the left femoral vein. 3. Right kidney is enlarged with hydroureteronephrosis again noted and small right renal calculi, no definite ureteral calculi are seen, etiology remains indeterminate. Mass in the 4. Indeterminate low-density mass in the left upper quadrant likely a grouping of small bowel loops that aren't opacified. Critical result: Inferior vena cava thrombosis extending into the right atrium and right renal vein was discussed with Dr. Ivan Tan at 1645 hrs on the day of the exam. It was ascertained that the content and urgency of the report was understood at the time of direct communication.
[2016-12-29] MEDS ORDERED: FERRALET 90 TA1 EACH PO (17:12)
[2016-12-29] MEDS ORDERED: REXULTI1 MG PO (17:13)
[2016-12-29] MEDS ORDERED: LORAZEPAM1 M1 PO (17:13)
[2016-12-29] MEDS ORDERED: ZOLPIDEM TARTRAT5 M1 PO (17:13)
[2016-12-29 20:41] VITALS: BP 114/58
== END 2016-12-29 21:30 | disposition short-term general hospital (02) ==
LOC: ERH 12:44
PROVIDERS: Physician Assistant Medical
DX: I82.220 Acute embolism and thrombosis of inferior vena cava (principal); N13.30 Unspecified hydronephrosis
CPT/HCPCS: 74176; 74177; 81001; 93005; 93010; 96374; 96375; 96376; J2405

== ENCOUNTER 2017-02-18 15:35 | Emergency (ER) | payer OTHER ==
[~2017-02-18] VITALS: Ht 160 cm; Wt 93.0 kg
[~2017-02-18 15:35] MED LIST changes: +LORAZEPAM1 M1 PO; +REXULTI1 MG PO
--- NOTE | 2017-02-18 16:01 | ED GI/GU/ABDOMINAL COMPLAINT ---
See Addendum History of Present Illness General Chief Complaint: Female Urogenital Problems Stated Complaint: LOWER ABD PAIN, VAGINAL BLEEDING? Source: patient Exam Limitations: no limitations Vital Signs & Intake/Output Vital Signs & Intake/Output Vital Signs Date Time Temp Pulse Resp B/P B/P Pulse O2 O2 Flow FiO2 Mean Ox Delivery Rate 02/183 97.8 74 19 124/89 98 Nasal 2.0L Cannula 02/18 1722 97.8 84 18 138/82 97 Room Air 02/18 1624 Room Air 02/18 1541 98.0 80 15 134/84 99 Room Air Allergies Coded Allergies: adhesive (Mild, RASH 12/18/16) latex (UNKNOWN 12/18/16) Reconcile Medications Albuterol Sulfate (Proair Hfa) 90 MCG HFA.AER.AD 2 PUF INH PRN ASTHMA ( Reported) Aspirin (Aspirin*) 81 MG TAB.CHEW 81 MG PO DAILY HEART HEALTH Brexpiprazole (Rexulti) 1 MG TABLET 1 TAB PO DAILY DEPRESSION (Reported) Cetirizine HCl 10 MG TABLET 1 TAB PO QHS ASTHMA (Reported) Cyclobenzaprine HCl 10 MG TABLET 1 TAB PO TID PRN MUSCLE SPASMS (Reported) Duloxetine HCl 30 MG CAPSULE.DR 90 MG PO DAILY MENTAL HEALTH (Reported) Enoxaparin Sodium (Lovenox) 100 MG/ML SYRINGE 100 MG SC BID BLOOD THINNER ( Reported) Furosemide (Lasix) 40 MG TABLET 1 TAB PO BID DIURETIC (Reported) Gabapentin (Neurontin) 300 MG CAPSULE 1 CAP PO QAM NEUROPATHY (Reported) Gabapentin (Neurontin) 300 MG CAPSULE 2 CAP PO QPM NEUROPATHY (Reported) Insulin Aspart (Novolog) 100 UNIT/ML VIAL 0 UNITS SC TIDAC Diabetes BEFORE MEALS Blood Insulin Sugar Units <80 no coverage 81-150 12 units 150-200 14 units 201-250 16 units 251-300 18 units 301-350 20 units 351-400 22 units >400 Call Doctor Insulin Detemir (Levemir) 100 UNIT/ML VIAL 32 UNITS SC BID blood sugars Insulin Glargine,Hum.rec.anlog (Toujeo Solostar) 300 UNIT/ML (1.5 ML) INSULN.PEN 40 UNITS SC QHS DM (Reported) Iron Carb,Gl/FA/B12/C/Docusate (Ferralet 90 Tablet) 90 MG-1 MG-12 MCG-120 MG-50 MG TABLET 1 TAB PO BID SUPPLEMENT (Reported) Lisinopril 5 MG TABLET 1 TAB PO DAILY HTN (Reported) Lorazepam 0.5 MG TABLET 1 TAB PO BIDP PRN ANXIETY (Reported) Mometasone Furoate (Nasonex) 50 MCG SPRAY.PUMP 1 SPRAY NASB DAILY ASTHMA ( Reported) Montelukast Sodium 10 MG TABLET 1 TAB PO QPM ASTHMA (Reported) Ondansetron (Zofran Odt) 4 MG TAB.RAPDIS 1 TAB SL TID PRN nausea Ondansetron HCl (Zofran) 4 MG TABLET 1 TAB PO Q6-8P PRN NAUSEA Oxycodone HCl/Acetaminophen (Percocet 5-325 MG Tablet) 5 MG-325 MG TABLET 1 TAB PO BID PRN PAIN Simvastatin (Simvastatin*) 40 MG TABLET 1 TAB PO QPM HLP (Reported) Tamsulosin HCl (Flomax) 0.4 MG CAP.ER.24H 1 CAP PO DAILY KIDNEY STONE Trazodone HCl 50 MG TABLET 2 TAB PO QHS PRN SLEEP (Reported) Zolpidem Tartrate 5 MG TABLET 1 TAB PO QPM SLEEP (Reported) Triage Note: PT TO ED FOR PELVIC PAIN, PYURIA AND "BLEEDING WHEN I WIPE." +VOMITING X 2 TODAY. Triage Nurses Notes Reviewed? yes ? N Is pt currently ? 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 The inferior vena cava is thrombosed containing 2 IVC filters with clot extending into the right atrium, right renal vein, and a hepatic vein on the right side, likely an accessory draining vein. 2. Clot is also suspected in the left external iliac vein and possibly into the left femoral vein. 3. Right kidney is enlarged with hydroureteronephrosis again noted and small right renal calculi, no definite ureteral calculi are seen, etiology remains indeterminate. Mass in the 4. Indeterminate low-density mass in the left upper quadrant likely a grouping of small bowel loops that aren't opacified. 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 Pain still persists today Patient also states that upon wiping after urinating she does note bright red blood to the tissue. Patient does have dysuria Denies any fever, chest pain, dyspnea, hemoptysis shortness of breath arm pain jaw pain leg swelling Patient does state that the nausea and vomiting has stopped today last bowel movement was within the last 24 hours no blood no melena noted Is noted through old records the patient has a history of noncompliance E with her medications however she states that she is compliant (TAMARA BADILLO,LEAH) Past History Travel History Traveled to [place] past 21 day No Medical History Any Pertinent Medical History? see below for history Neurological: migraine EENT: allergies, sinusitis Cardiovascular: hypertension, hyperlipidemia Respiratory: asthma, pulmonary embolism (recurrent. on coumadin) Gastrointestinal: s/p partial pancreatectomy Hepatic: NONE Renal: nephrolithiasis Musculoskeletal: costochondritis Psychiatric: depression Endocrine: diabetes Blood Disorders: anemia Cancer(s): NONE PHYSICAL MEDICINE SPECIALIST/Reproductive: NONE Other Medical Hx: Lupus anticoagulant and antiphospholipid antibody syndrome Sepsis diabetes, recurrent pulmonary embolus S/P thrombectomy 2008 and IVF filter 2015 with last admission PE February 2016, antiphospholipid antibody syndrome/lupus anticoagulants (on lovenox 150 mg subcutaneous daily), asthma on home oxygen 2 L, anemia, hypertension, hyperlipidemia, chronic back pain , 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 History of MRSA: No History of VRE: No History of CDIFF: No Tetanus Vaccine: 04/23/14 Surgical History Surgical History: , tubal ligation history of massive PE with clot removal excision of a pancreatic tumor splenectomy partial pancreatectomy for benign tumor TUMOR REMOVAL FROM PANCREAS Psychosocial History Who do you live with Family Services at Home None What is your primary language Occitan Tobacco Use: Refused to answer ETOH Use: denies use Illicit Drug Use: denies illicit drug use Family History Family History, If Any: MOTHER (hypertension, diabetes mellitus). FATHER (hypertension, diabetes mellitus). Hx Contributory? No (LEAH SEWELL) Review of Systems Review of Systems Constitutional: Reports: no symptoms. EENTM: Reports: no symptoms. Respiratory: Reports: no symptoms. Cardiovascular: Reports: no symptoms. GI: Reports: see HPI, abdominal pain. Genitourinary: Reports: see HPI. Musculoskeletal: Reports: no symptoms. Skin: Reports: no symptoms. Neurological/Psychological: Reports: no symptoms. Hematologic/Endocrine: Reports: no symptoms. Immunologic/Allergic: Reports: no symptoms. All Other Systems: Reviewed and Negative (LEAH SEWELL) Physical Exam Physical Exam General Appearance: alert, mild distress Gastrointestinal: normal bowel sounds, soft Comments: HEENT: Normal EENT exam, Neck: Supple, no lymphadenopathy, normal range of motion without pain or tenderness Back: Nontender, no CVA tenderness. Cardiovascular: Regular rate and rhythms no murmurs rubs or gallops, normal JVP Respiratory: Chest nontender. No respiratory distress.breath sounds clear to auscultation bilaterally Abdomen: No right lower quadrant pain, moderate pelvic and epigastric point tenderness, no right upper quadrant point tenderness no rebound tenderness Extremity: No edema, no calf tenderness to palpation, normal and equal pulses. Neuro: Alert oriented x3, Skin: No appreciable rash on exposed skin, skin is warm and dry. Psych: Mood and affect is normal, memory and judgment is normal. Core Measures ACS in differential dx? No Severe Sepsis Present: No Septic Shock Present: No (LEAH SEWELL) Progress Differential Diagnosis: AAA, AMI, appendicitis, biliary colic, bowel obstruction , colon cancer, cholecystitis, diverticulitis, ectopic , endometritis, esophageal varices, gastritis, hepatitis, hernia, hemorrhoids, ischemic bowel, inflamm bowel dis, intrauterine , kidney stone, ovarian cyst, ovarian torsion, pancreatitis, PID/cervicitis, peptic ulcer, PUD/GERD, perforated viscous, SBO, threatened AB, UTI/pyelo Plan of Care: Orders Procedure Date/time Status Add-on Test (ER Only) 02/18 162 Active LIPASE 02/18 162 Complete AMYLASE 02/18 162 Complete CULTURE,URINE 02/18 160 Active URINE 02/18 160 Complete URINALYSIS 02/18 160 Complete COMPREHENSIVE METABOLIC PANEL 02/18 160 Complete CBC WITHOUT DIFFERENTIAL 02/18 160 Complete Laboratory Tests 02/18/17 1640: Urine Color YEL, Urine Clarity HAZY H, Urine pH 6.5, Ur Specific [place] 1.025, Urine Protein >=300 H, Urine Ketones NEG, Urine Nitrite NEG, Urine Bilirubin NEG, Urine Urobilinogen 0.2, Ur Leukocyte Esterase NEG, Ur Microscopic SEDIMENT EXAMINED, Urine RBC RARE, Urine WBC 10-15 H, Ur Epithelial Cells MOD H, Urine Bacteria RARE H, Urine Mucus FEW, Urine Hemoglobin TRACE-INTACT, Urine Glucose 100 H, Urine Test NEGATIVE 02/18/17 1620: Anion Gap 15, Estimated GFR > 60, BUN/Creatinine Ratio 24.3, Glucose 288 H, Calcium 9.4, Total Bilirubin 0.5, AST 16, ALT 20, Alkaline Phosphatase 103, Total Protein 7.6, Albumin 4.1, Globulin 3.5, Albumin/Globulin Ratio 1.2, Amylase 35, Lipase 31, CBC w Diff NO MAN DIFF REQ, RBC 4.86, MCV 80.8 L, MCH 25.5 L, RDW 30.0 H, MPV 8.4, Gran % 75.2, Lymphocytes % 15.4 L, Monocytes % 8.5, Eosinophils % 0.7, Basophils % 0.2, Absolute Granulocytes 11.0 H, Absolute Lymphocytes 2.3, Absolute Monocytes 1.3 H, Absolute Eosinophils 0.1, Absolute Basophils 0, PUBS MCHC 31.6 L Microbiology 02/18 1640 URINE ROUT: Urine Culture - RECD 1739- patient was reevaluated in no apparent distress resting comfortable at bedside patient was updated on blood work. CT scan currently is pending CT scan was remarkable for unchanged Extensive venous thrombosis in the entire IVC however there is concern of left-sided 4 mm nephrolithiasis to the UVJ Patient was able tolerate by mouth She was strongly advised to follow-up with her already established urologist I discussed CT scan results with DR. LI in which there is no significant worsening for her chronic thrombosis. Patient was strongly advised to be compliant with her medications Upon discharge patient looks well no apparent distress and will comply discharge instructions and had no questions (TAMARA BADILLO,LEAH) Diagnostic Imaging: Viewed by Me: CT Scan. Radiology Impression: SEE COMMENTS Initial ED EKG: none Comments: PATIENT: JAIMIE CHEN PRESENT AGE: 37 PATIENT ACCOUNT NO: [id number] : 81 LOCATION: [facility] ORDERING PHYSICIAN: LEAH BADILLO SERVICE DATE: 02/18/17 EXAM TYPE: CAT - CT ABD & PELVIS W IV CONTRAST EXAMINATION: CT ABDOMEN AND PELVIS WITH CONTRAST CLINICAL INFORMATION: Pelvic and epigastric pain. COMPARISON: CT scan of the abdomen and pelvis dated 12/29/2016 and several prior exams dating back to 02/01/2015. TECHNIQUE: Multidetector CT volumetric acquisition of the abdomen and pelvis was performed after the administration of 95 mL of intravenous Optiray 320. The data set was reformatted in the sagittal and coronal planes and reviewed on an independent workstation. DLP: 590.13 mGy-cm. FINDINGS: LOWER CHEST: Minimal dependent atelectasis is seen in the left lung base. VASCULAR STRUCTURES: There are two sequential filters seen within the IVC with tip just below the level of the renal veins and just below the cavoatrial junction. The IVC is diminutive in size and shows diffuse thrombus formation, which extends into the right atrium, right renal vein, and into what appears to be an accessory right hepatic vein along the inferior aspect of the liver, unchanged from prior exam from 12/29/2016. LIVER, GALLBLADDER, BILIARY TREE: The liver is enlarged. There is patchy hypoenhancement seen in the caudate lobe and the right lobe of the liver secondary to the venous disease described above. No focal cystic or solid mass or intra-or extrahepatic ductal dilatation. The main right, middle and left hepatic veins and the portal veins remain patent. Gallbladder is not visualized and presumably is surgically absent. PANCREAS: The patient is status post distal pancreatectomy. The remaining pancreas is unremarkable with no ductal dilatation, mass, or surrounding stranding. SPLEEN: The spleen is surgically absent. ADRENAL GLANDS: Adrenal glands normal. KIDNEYS, URETERS: The left kidney is normal with no focal mass, hydronephrosis, nephrolithiasis or perinephric stranding. The right kidney is asymmetrically enlarged with a slightly asymmetrically diminished nephrogram and with moderate hydroureteronephrosis seen, which has progressed slightly compared to the prior exam. The dilated ureter can be followed down to the ureterovesical junction, where a obstructing 0.4 cm calcification is seen, not previously noted (series 2, image 71). There is abnormal ureteral wall thickening and enhancement seen. BLADDER: Bladder partially distended, likely accounting for the diffusely thick walled appearance. PELVIC ORGANS: The uterus is enlarged and heterogeneous, measuring 14.2 x 7.1 x 9.4 cm in size. There appears to be endometrial thickening, measuring up to 3 cm in thickness with trace amount of endometrial free fluid seen tiny anterior uterine body/fundal fibroid is noted. Small locules of air are present within the vagina, likely related to recent manipulation. The ovaries bilaterally are stable largest cyst in the left ovary measuring 4.5 x 3.7 cm in size. These cysts appear thin-walled and simple and are likely physiologic although some are larger or new compared to the prior exam. GASTROINTESTINAL TRACT: Normal. Small and large bowel loops decompressed. Appendix not seen. LYMPHATIC STRUCTURES: No abdominal or pelvic adenopathy or free fluid collection. BONES: Within normal limits. IMPRESSION: 1. Extensive venous thrombosis is again visualized in the entire IVC, extending into the right atrium, right renal vein and into an accessory right hepatic vein. Two sequential IVC filters are in place. The appearance is overall unchanged compared to the prior exam. Resultant venous congestion and hypoenhancement of the posterior segment of the right lobe and the caudate lobe of the liver are noted. 2. Increasing right-sided hydronephrosis with slightly delayed right renal function. There is also increasing right hydroureter with ureteral wall thickening and enhancement. Findings are due to to an obstructing 0.4 cm calcification at the right ureterovesical junction. 3. Uterus is enlarged and heterogeneous and demonstrates endometrial thickening. This is not adequately assessed on this exam and further evaluation with pelvic ultrasound is recommended. 4. Bilaterally, ovaries demonstrate several cysts, measuring up to 4.5 cm in size. These are likely physiologic but can also be reassessed at the time of the above suggested pelvic ultrasound follow-up. 5. Status post splenectomy and cholecystectomy. (LEAH SEWELL) Departure Departure Disposition: HOME OR SELF CARE Condition: Stable Clinical Impression Primary Impression: Kidney stone Referrals: BARRY CARIAS,EMETERIO (PCP/Family) Additional Instructions: As discussed begin the prescription of Percocet for pain, begin the prescription Zofran for nausea and a prescription of Flomax for your symptoms. On Monday follow-up with your established urologist. Prescriptions are waiting at [facility]. If symptoms worsen or if YOU develop new concerning symptom return to emergency room Departure Forms: Customer Survey General Discharge Information Prescriptions: Current Visit Scripts Tamsulosin HCl (Flomax) 1 CAP PO DAILY #10 CAP Oxycodone HCl/Acetaminophen (Percocet 5-325 MG Tablet) 1 TAB PO BID PRN PAIN #8 TAB Ondansetron HCl (Zofran) 1 TAB PO Q6-8P PRN NAUSEA #10 TAB (LEAH SEWELL) PA/COAT HANGER SHAPER MACHINE OPERATOR Co-Sign Statement Statement: ED Attending supervision documentation- [] I saw and evaluated the patient. I have also reviewed all the pertinent lab results and diagnostic results. I agree with the findings and the plan of care as documented in the PA's/COAT HANGER SHAPER MACHINE OPERATOR's documentation. [X] I have reviewed the ED Record and agree with the PA's/COAT HANGER SHAPER MACHINE OPERATOR's documentation. [] Additions or exceptions (if any) to the PAs/COAT HANGER SHAPER MACHINE OPERATOR's note and plan are summarized below: [] (JEN WALLER,VALE)
[2017-02-18 16:36] LABS: ABSOLUTE BASOPHIL COUNT 0 /CUMM (0.0-0.2); ABSOLUTE EOSINOPHIL COUNT 0.1 /CUMM (0.0-0.7); ABSOLUTE LYMPH COUNT 2.3 /CUMM (1.2-3.4); ABSOLUTE MONOCYTE COUNT 1.3 /CUMM (0.10-0.60); BASOPHIL % 0.2 % (0.0-2.0); EOSINOPHIL % 0.7 % (0-5); GRANULOCYTE % 75.2 % (42.2-75.2); HEMATOCRIT 39.2 % (37-47); MEAN CORPUSCULAR HGB 25.5 PG (27.0-31.0); MEAN CORPUSCULAR HGB CONC 31.6 G/DL (33.0-37.0); MEAN CORPUSCULAR VOLUME 80.8 FL (81.0-99.0); MEAN PLATELET VOLUME 8.4 FL (7.4-10.4); PLATELET COUNT 470 /CUMM (130-400); RED BLOOD CELL CT 4.86 /CUMM (4.20-5.40); WHITE BLOOD CELL COUNT 14.7 /CUMM (4.8-10.8)
--- NOTE | 2017-02-18 18:09 | CT SCAN REPORT ---
EXAMINATION: CT ABDOMEN AND PELVIS WITH CONTRAST CLINICAL INFORMATION: Pelvic and epigastric pain. COMPARISON: CT scan of the abdomen and pelvis dated 12/29/2016 and several prior exams dating back to 02/01/2015. TECHNIQUE: Multidetector CT volumetric acquisition of the abdomen and pelvis was performed after the administration of 95 mL of intravenous Optiray 320. The data set was reformatted in the sagittal and coronal planes and reviewed on an independent workstation. DLP: 590.13 mGy-cm. FINDINGS: LOWER CHEST: Minimal dependent atelectasis is seen in the left lung base. VASCULAR STRUCTURES: There are two sequential filters seen within the IVC with tip just below the level of the renal veins and just below the cavoatrial junction. The IVC is diminutive in size and shows diffuse thrombus formation, which extends into the right atrium, right renal vein, and into what appears to be an accessory right hepatic vein along the inferior aspect of the liver, unchanged from prior exam from 12/29/2016. LIVER, GALLBLADDER, BILIARY TREE: The liver is enlarged. There is patchy hypoenhancement seen in the caudate lobe and the right lobe of the liver secondary to the venous disease described above. No focal cystic or solid mass or intra-or extrahepatic ductal dilatation. The main right, middle and left hepatic veins and the portal veins remain patent. Gallbladder is not visualized and presumably is surgically absent. PANCREAS: The patient is status post distal pancreatectomy. The remaining pancreas is unremarkable with no ductal dilatation, mass, or surrounding stranding. SPLEEN: The spleen is surgically absent. ADRENAL GLANDS: Adrenal glands normal. KIDNEYS, URETERS: The left kidney is normal with no focal mass, hydronephrosis, nephrolithiasis or perinephric stranding. The right kidney is asymmetrically enlarged with a slightly asymmetrically diminished nephrogram and with moderate hydroureteronephrosis seen, which has progressed slightly compared to the prior exam. The dilated ureter can be followed down to the ureterovesical junction, where a obstructing 0.4 cm calcification is seen, not previously noted (series 2, image 71). There is abnormal ureteral wall thickening and enhancement seen. BLADDER: Bladder partially distended, likely accounting for the diffusely thick walled appearance. PELVIC ORGANS: The uterus is enlarged and heterogeneous, measuring 14.2 x 7.1 x 9.4 cm in size. There appears to be endometrial thickening, measuring up to 3 cm in thickness with trace amount of endometrial free fluid seen tiny anterior uterine body/fundal fibroid is noted. Small locules of air are present within the vagina, likely related to recent manipulation. The ovaries bilaterally are stable largest cyst in the left ovary measuring 4.5 x 3.7 cm in size. These cysts appear thin-walled and simple and are likely physiologic although some are larger or new compared to the prior exam. GASTROINTESTINAL TRACT: Normal. Small and large bowel loops decompressed. Appendix not seen. LYMPHATIC STRUCTURES: No abdominal or pelvic adenopathy or free fluid collection. BONES: Within normal limits. IMPRESSION: 1. Extensive venous thrombosis is again visualized in the entire IVC, extending into the right atrium, right renal vein and into an accessory right hepatic vein. Two sequential IVC filters are in place. The appearance is overall unchanged compared to the prior exam. Resultant venous congestion and hypoenhancement of the posterior segment of the right lobe and the caudate lobe of the liver are noted. 2. Increasing right-sided hydronephrosis with slightly delayed right renal function. There is also increasing right hydroureter with ureteral wall thickening and enhancement. Findings are due to to an obstructing 0.4 cm calcification at the right ureterovesical junction. 3. Uterus is enlarged and heterogeneous and demonstrates endometrial thickening. This is not adequately assessed on this exam and further evaluation with pelvic ultrasound is recommended. 4. Bilaterally, ovaries demonstrate several cysts, measuring up to 4.5 cm in size. These are likely physiologic but can also be reassessed at the time of the above suggested pelvic ultrasound follow-up. 5. Status post splenectomy and cholecystectomy.
[2017-02-18] MEDS ORDERED: PERCOCET 5-3251 EACH PO (18:26)
[2017-02-18] MEDS ORDERED: ZOFRAN4 M2 PO (18:26)
[2017-02-18] MEDS ORDERED: FLOMAX0.4 M1 PO (18:26)
[2017-02-18 19:23] VITALS: BP 124/89
== END 2017-02-18 19:24 ==
LOC: ERH 15:35
PROVIDERS: Physician Assistant
DX: N20.0 Calculus of kidney (principal)
CPT/HCPCS: 74177; 81001; 81025; 87086; 96374; J0131; J2405

== ENCOUNTER 2017-07-21 15:06 | Emergency (ER) | payer OTHER ==
[~2017-07-21] VITALS: Ht 160 cm; Wt 89.8 kg
[~2017-07-21 15:06] MED LIST changes: +ACETAMINOPHEN-1 EAC3 PO; +BENTYL10 M1 PO; +FLOMAX0.4 M1 PO; +GABAPENTIN300 M2 PO; +LEVEMIR FL100 UNIT/1 SC; +LOVENOX120 MG/0.1 SC; +MAGOX 400400 MG PO; +ZOFRAN4 M2 PO
[2017-07-21 15:11] VITALS: BP 125/86
== END 2017-07-21 15:55 | disposition admitted as inpatient to this hospital (09) ==
LOC: ERH 15:06
DX: H10.023 Other mucopurulent conjunctivitis, bilateral (principal)

== ENCOUNTER 2017-08-15 18:16 | Emergency (ER) | payer OTHER ==
[2017-08-15 19:07] LABS: ABSOLUTE BASOPHIL COUNT 0.1 /CUMM (0.0-0.2); ABSOLUTE EOSINOPHIL COUNT 0.1 /CUMM (0.0-0.7); ABSOLUTE GRANULOCYTE CT 5.5 /CUMM (1.4-6.5); ABSOLUTE LYMPH COUNT 4.1 /CUMM (1.2-3.4); ABSOLUTE MONOCYTE COUNT 0.7 /CUMM (0.10-0.60); BASOPHIL % 0.6 % (0.0-2.0); GRANULOCYTE % 52.6 % (42.2-75.2); HEMATOCRIT 42.1 % (37-47); MEAN CORPUSCULAR HGB 26.6 PG (27.0-31.0); MEAN CORPUSCULAR HGB CONC 31.4 G/DL (33.0-37.0); MEAN CORPUSCULAR VOLUME 84.8 FL (81.0-99.0); MEAN PLATELET VOLUME 9.4 FL (7.4-10.4); PLATELET COUNT 407 /CUMM (130-400); RBC DISTRIBUTION WIDTH 18.1 % (11.5-14.5); RED BLOOD CELL CT 4.96 /CUMM (4.20-5.40); WHITE BLOOD CELL COUNT 10.5 /CUMM (4.8-10.8)
[2017-08-15 19:15] LABS: PT 11.7 SEC (9.4-12.5); PTT 25 SEC (25-37)
--- NOTE | 2017-08-15 20:44 | ED GI/GU/ABDOMINAL COMPLAINT ---
History of Present Illness General Chief Complaint: Female Urogenital Problems Stated Complaint: HEAVY VAGINAL BLEEDING X 3 DAYS Source: patient, old records Exam Limitations: no limitations Vital Signs & Intake/Output Vital Signs & Intake/Output Vital Signs Date Time Temp Pulse Resp B/P B/P Pulse O2 O2 Flow FiO2 Mean Ox Delivery Rate 08/15 2308 97.9 84 19 163/10 95 Room Air 08/157 96.9 81 20 149/86 91 Room Air 08/15 1843 97.1 84 24 100/56 90 Allergies Coded Allergies: adhesive (Mild, RASH 12/18/16) latex (UNKNOWN 12/18/16) Reconcile Medications Albuterol Sulfate (Proair Hfa) 90 MCG HFA.AER.AD 2 PUF INH PRN ASTHMA ( Reported) Aspirin (Aspirin*) 81 MG TAB.CHEW 81 MG PO DAILY HEART HEALTH Brexpiprazole (Rexulti) 1 MG TABLET 1 TAB PO DAILY DEPRESSION (Reported) Cetirizine HCl 10 MG TABLET 1 TAB PO QHS ASTHMA (Reported) Cyclobenzaprine HCl 10 MG TABLET 1 TAB PO TID PRN MUSCLE SPASMS (Reported) Dicyclomine Hydrochloride (Bentyl) 10 MG CAPSULE 1 CAP PO TID PRN pain Duloxetine HCl 30 MG CAPSULE.DR 90 MG PO DAILY MENTAL HEALTH (Reported) Enoxaparin Sodium (Lovenox) 120 MG/0.8 ML SYRINGE 120 MG SC BID ANTIPHOSPHOLIPID ANTIBODY SYND . Furosemide (Lasix) 40 MG TABLET 1 TAB PO BID DIURETIC (Reported) Gabapentin (Neurontin) 300 MG CAPSULE 1 CAP PO QAM NEUROPATHY (Reported) Gabapentin (Neurontin) 300 MG CAPSULE 2 CAP PO QPM NEUROPATHY (Reported) Ibuprofen 800 MG TABLET 1 TAB PO AD PRN PAIN/INFLAMMATION (Reported) Insulin Aspart (Novolog) 100 UNIT/ML VIAL 0 UNITS SC TIDAC Diabetes <80 none 80-150 4u 151-200 6u 201-250 7u 251-300 8u 301-350 9u 351-400 10u >400 10u call MD Insulin Detemir (Levemir) 100 UNIT/ML VIAL 18 UNIT SC BID insulin (Reported) Insulin Detemir (Levemir Flextouch) 100 UNIT/ML (3 ML) INSULN.PEN 32 UNITS SC BID DM (Reported) Iron Carb,Gl/FA/B12/C/Docusate (Ferralet 90 Tablet) 90 MG-1 MG-12 MCG-120 MG-50 MG TABLET 1 TAB PO BID SUPPLEMENT (Reported) Lisinopril 5 MG TABLET 1 TAB PO DAILY HTN (Reported) Lorazepam 0.5 MG TABLET 1 TAB PO BIDP PRN ANXIETY (Reported) Magnesium Oxide (Magox 400) 400 MG TABLET 400 MG PO BID LOW MAGNESIUM . Mometasone Furoate (Nasonex) 50 MCG SPRAY.PUMP 1 SPRAY NASB DAILY ASTHMA ( Reported) Montelukast Sodium 10 MG TABLET 1 TAB PO QPM ASTHMA (Reported) Ondansetron HCl (Zofran) 4 MG TABLET 1 TAB PO Q6-8P PRN nausea Simvastatin (Simvastatin*) 40 MG TABLET 1 TAB PO QPM HLP (Reported) Trazodone HCl 50 MG TABLET 2 TAB PO QHS PRN SLEEP (Reported) Zolpidem Tartrate 5 MG TABLET 1 TAB PO QPM SLEEP (Reported) Triage Note: PER PT LAST REGULAR PERIOD WAS IN 07/23. LAST 3 DAYS WITH MILD BLEEDING THIS AM WOKE UP WITH HEAVY VAGINAL BLEEDING PAIN TO LLQ PER PT THERE IS A BALL THERE Triage Nurses Notes Reviewed? yes LMP (ages 10-50): unknown ? N Is pt currently ? No Onset: Abrupt Duration: day(s): (3) Timing: single episode today Quality/Severity: cramping Severity Numbers: 5 Location: left lower quadrant Radiation: no radiation Activities at Onset: none Prior Abdominal Problems: none Past Sexual History: Unobtainable at this time No Modifying Factors: none Modifying Factors: Worsens With: movement, palpation. Associated Symptoms: abdominal pain, vaginal bleeding HPI: 37-year-old female past medical history of lupus, antiphospholipid antibody syndrome, multiple pulmonary emboli, presents for evaluation of left lower quadrant abdominal pain and vaginal bleeding. Patient states that for the past 3 days she has had vaginal bleeding that gets significantly worse today. She states she's been using 6 super pads throughout the day. The pain is located in the left lower quadrant does not radiate just started today. Described as cramping. She's never had this before. No dizziness lightheadedness chest pain or shortness of breath. Patient is on Lovenox currently but states she did not take it today due to the bleeding. No melena or bright red blood per rectum. No hemoptysis or lower extremity edema. Past History Travel History Traveled to [place] past 21 day No Medical History Any Pertinent Medical History? see below for history Neurological: migraine EENT: allergies, sinusitis Cardiovascular: hypertension, hyperlipidemia Respiratory: asthma, pulmonary embolism (recurrent. on coumadin) Gastrointestinal: s/p partial pancreatectomy Hepatic: NONE Renal: nephrolithiasis Musculoskeletal: costochondritis Psychiatric: depression Endocrine: diabetes Blood Disorders: anemia Cancer(s): NONE RESISTANCE WELDER/Reproductive: NONE Other Medical Hx: Lupus anticoagulant and antiphospholipid antibody syndrome Sepsis diabetes, recurrent pulmonary embolus S/P thrombectomy 2008 and IVF filter 2015 with last admission PE February 2016, antiphospholipid antibody syndrome/lupus anticoagulants (on lovenox 150 mg subcutaneous daily), asthma on home oxygen 2 L, anemia, hypertension, hyperlipidemia, chronic back pain , 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 History of MRSA: No History of VRE: No History of CDIFF: No Tetanus Vaccine: 04/23/14 Surgical History Surgical History: cholecystectomy, , tubal ligation history of massive PE with clot removal excision of a pancreatic tumor splenectomy partial pancreatectomy for benign tumor TUMOR REMOVAL FROM PANCREAS Psychosocial History Who do you live with Family Services at Home None What is your primary language Faroese Tobacco Use: Never used Family History Family History, If Any: MOTHER (hypertension, diabetes mellitus). FATHER (hypertension, diabetes mellitus). Hx Contributory? No Review of Systems Review of Systems Constitutional: Reports: no symptoms. EENTM: Reports: no symptoms. Respiratory: Reports: no symptoms. Cardiovascular: Reports: no symptoms. GI: Reports: see HPI, abdominal pain. Genitourinary: Reports: see HPI (vaginal bleeding ). Musculoskeletal: Reports: no symptoms. Skin: Reports: no symptoms. Neurological/Psychological: Reports: no symptoms. Hematologic/Endocrine: Reports: no symptoms. Immunologic/Allergic: Reports: no symptoms. All Other Systems: Reviewed and Negative Physical Exam Physical Exam General Appearance: well developed/nourished, no apparent distress, alert, awake , obese Head: atraumatic, normal appearance Eyes: Bilateral: normal appearance, PERRL, EOMI. Ears, Nose, Throat, Mouth: hearing grossly normal, moist mucous membrane Neck: normal inspection, supple, full range of motion Respiratory: normal breath sounds, chest non-tender, no respiratory distress, lungs clear Cardiovascular: regular rate/rhythm, normal peripheral pulses Peripheral Pulses: 2+ radial (R), 2+ radial (L) Gastrointestinal: normal bowel sounds, soft, no organomegaly, tenderness (llq) Back: normal inspection, normal range of motion Extremities: normal range of motion Neurologic/Psych: no motor/sensory deficits, awake, alert, oriented x 3 Skin: intact, normal color, warm/dry Core Measures ACS in differential dx? No Sepsis Present: No Sepsis Focused Exam Completed? No Progress Differential Diagnosis: AAA, appendicitis, bowel obstruction, diverticulitis, endometritis, kidney stone, ovarian cyst, PID/cervicitis, UTI/pyelo Plan of Care: Orders Procedure Date/time Status EKG 08/15 2327 Active Add-on Test (ER Only) 08/15 2020 Active MISTAKE 08/15 2014 Active TSH REFLEX 08/15 1939 Complete URINALYSIS 08/15 1842 Complete PARTIAL THROMBOPLASTIN TIME 08/15 1842 Complete PROTHROMBIN TIME 08/15 1842 Complete HUMAN BETA HCG TITRE 08/15 1842 Complete COMPREHENSIVE METABOLIC PANEL 08/15 1842 Complete CBC WITHOUT DIFFERENTIAL 08/15 1842 Complete Current Medications Sig/Omero Start time Last Medication Dose Stop Time Status Admin Heparin Sodium/ 25,000 UNIT Q24H 08/15 231 AC Dextrose (Heparin) Dextrose/Water 500 ML (D5W) Laboratory Tests 08/15/17 2020: Urinalysis LIGHT H, Urine Color BLDY H, Urine Clarity TURBD H, Urine pH 7.0, Ur Specific [place] 1.015, Urine Protein 100 H, Urine Ketones TRACE H, Urine Nitrite POS H, Urine Bilirubin NEG, Urine Urobilinogen 1.0, Ur Leukocyte Esterase NEG, Ur Microscopic SEDIMENT EXAMINED, Urine RBC >75 H, Urine WBC 5-10 H, Ur Epithelial Cells FEW, Urine Bacteria MOD H, Urine Hemoglobin LARGE H, Urine Glucose >=1000 H 08/15/17 194: Anion Gap 16, Estimated GFR > 60, BUN/Creatinine Ratio 18.0, Glucose 454 H, Calcium 8.9, Total Bilirubin 0.3, AST 23, ALT 33, Alkaline Phosphatase 105, Total Protein 6.7, Albumin 3.4 L, Globulin 3.3, Albumin/Globulin Ratio 1.0 L, TSH &T3 &Free T4 Intrp 1.460, Beta HCG, Quant < 2.4 08/15/17 1856: PT 11.7, INR 1.12, APTT 25, CBC w Diff NO MAN DIFF REQ, RBC 4.96, MCV 84.8, MCH 26.6 L, RDW 18.1 H, MPV 9.4, Gran % 52.6, Lymphocytes % 39.5, Monocytes % 6.3, Eosinophils % 1.0, Basophils % 0.6, Absolute Granulocytes 5.5, Absolute Lymphocytes 4.1 H, Absolute Monocytes 0.7 H, Absolute Eosinophils 0.1, Absolute Basophils 0.1, PUBS MCHC 31.4 L Seen and evaluated. She is on Lovenox and reports vaginal bleeding using 6 pads per day. She also reports left lower quadrant abdominal pain. Blood work is overall unremarkable. She is not orthostatic vital signs are stable. CT scan of the abdomen and pelvis does lemon picker an incidental finding of a large bulky thrombus at the caveratrial junction. A clot extends into the right atrium. This is a significant finding that could lead to massive PE. Patient likely has chronic PE already. Patient has been seen at [facility] [place] previously and has required surgical removal thrombus. Patient will be transferred to [facility] [place] for further evaluation and treatment. Spoke with cardiothoracic surgery there they will admit the patient directly to the ICU. EKG ordered. Patient will be started on heparin. Case discussed with Dr. Levine he agrees. Diagnostic Imaging: Viewed by Me: CT Scan. Discussed w/RAD: CT Scan. Radiology Impression: PATIENT: JAIMIE CHEN PRESENT AGE: 37 PATIENT ACCOUNT NO: [id number] : 81 LOCATION: [facility] ORDERING PHYSICIAN: Wilman BADILLO SERVICE DATE: 08/15/17 EXAM TYPE: CAT - CT ABD & PELVIS W IV CONTRAST EXAMINATION: CT ABDOMEN AND PELVIS WITH CONTRAST CLINICAL INFORMATION: 37-year-old female patient with bilateral pelvic pain and vaginal bleeding. COMPARISON: CT exams of the abdomen and pelvis on 12/29/2016, 02/18/2017, and 03/23/2017. (Extensive venous thrombosis of the IVC). TECHNIQUE: Multidetector volumetric imaging was performed of the abdomen and pelvis following IV administration of 95 mL of Optiray 320 intravenous contrast. Sagittal and coronal reformatted images were obtained on the technologist's workstation. DLP: 687 mGy-cm FINDINGS: Lead Quality Control Technician: Tandem IVC filters are in place as previously described. The superior aspect of one filter is the level of T12 and superior aspect of the second filter is at the level of L2-L3. Abdominal gas pattern is unremarkable with some increased burden of formed stool in the left colon. Sternotomy wires are in place. LUNG BASES: Mild groundglass and linear opacities in the left lower lobe are unchanged and stable. LIVER, GALLBLADDER, AND BILIARY TREE: The liver remains enlarged. There are now areas of sublobar fatty filtration. Also, Couinaud segments 2 and 3 and portions of 4 show widespread fatty replacement. This was not the case on previous exams. The variability of attenuation the liver is attributed to vascular insult. This study was performed in the portal venous phase prior to the hepatic gram phase since the hepatic veins are not opacified. It is conceivable that thrombosis lies within the hepatic veins. 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 The gallbladder is absent. The bile ducts are not dilated. PANCREAS: The pancreas is normal except for a distal pancreatectomy. SPLEEN: Removed. ADRENAL GLANDS: Unremarkable. KIDNEYS AND URETERS: There is cortical thinning of the left kidney and enlargement of the right kidney as previously described. Neither kidney shows hydronephrosis. No stones are seen. BLADDER: Unremarkable. GASTROINTESTINAL TRACT: The small and large bowel are unremarkable. The appendix is unremarkable. ABDOMINAL WALL: No significant hernia is appreciated. LYMPH NODES: Normal. VASCULAR: Numerous venous collaterals bypass the occluded IVC. These collaterals are in the subcutaneous tissues of the torso and the retroperitoneum. PELVIC VISCERA: The uterus remains enlarged. The subendometrial myometrium enhances diffusely. The ovaries are prominent and cystic. OSSEOUS STRUCTURES: Unremarkable. IMPRESSION: 1. IVC occlusion with numerous venous collaterals. 2. Inhomogeneous hepatogram. Question Budd-Chiari physiology. 3. Large bulky thrombus at the cavoatrial junction. The thrombus extends into the right atrium. 4. Cortical atrophy of the left kidney. 5. Enlarged uterus with inhomogeneous enhancement of the myometrium. Question significance. DICTATED BY: Marc Whalen MD DATE/TIME DICTATED:08/15/172211 SUPERVISOR FIREARMS: BRAIN DATE/TIME TRANSCRIBED:08/15/172211 Initial ED EKG: sinus rhythm, probable left atrial the reality, borderline T abnormalities anteriorl lateral leads, borderline prolonged QT interval. Departure Departure Disposition: OTHER GENERAL HOSPITAL (ACUTE) Condition: Guarded Clinical Impression Primary Impression: Right atrial thrombus Referrals: Unknown (PCP/Family) Departure Forms: Customer Survey General Discharge Information
--- NOTE | 2017-08-15 22:41 | CT SCAN REPORT ---
EXAMINATION: CT ABDOMEN AND PELVIS WITH CONTRAST CLINICAL INFORMATION: 37-year-old female patient with bilateral pelvic pain and vaginal bleeding. COMPARISON: CT exams of the abdomen and pelvis on 12/29/2016, 02/18/2017, and 03/23/2017. (Extensive venous thrombosis of the IVC). TECHNIQUE: Multidetector volumetric imaging was performed of the abdomen and pelvis following IV administration of 95 mL of Optiray 320 intravenous contrast. Sagittal and coronal reformatted images were obtained on the technologist's workstation. DLP: 687 mGy-cm FINDINGS: Horizontal Drill Operator: Tandem IVC filters are in place as previously described. The superior aspect of one filter is the level of T12 and superior aspect of the second filter is at the level of L2-L3. Abdominal gas pattern is unremarkable with some increased burden of formed stool in the left colon. Sternotomy wires are in place. LUNG BASES: Mild groundglass and linear opacities in the left lower lobe are unchanged and stable. LIVER, GALLBLADDER, AND BILIARY TREE: The liver remains enlarged. There are now areas of sublobar fatty filtration. Also, Couinaud segments 2 and 3 and portions of 4 show widespread fatty replacement. This was not the case on previous exams. The variability of attenuation the liver is attributed to vascular insult. This study was performed in the portal venous phase prior to the hepatic gram phase since the hepatic veins are not opacified. It is conceivable that thrombosis lies within the hepatic veins. 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 The gallbladder is absent. The bile ducts are not dilated. PANCREAS: The pancreas is normal except for a distal pancreatectomy. SPLEEN: Removed. ADRENAL GLANDS: Unremarkable. KIDNEYS AND URETERS: There is cortical thinning of the left kidney and enlargement of the right kidney as previously described. Neither kidney shows hydronephrosis. No stones are seen. BLADDER: Unremarkable. GASTROINTESTINAL TRACT: The small and large bowel are unremarkable. The appendix is unremarkable. ABDOMINAL WALL: No significant hernia is appreciated. LYMPH NODES: Normal. VASCULAR: Numerous venous collaterals bypass the occluded IVC. These collaterals are in the subcutaneous tissues of the torso and the retroperitoneum. PELVIC VISCERA: The uterus remains enlarged. The subendometrial myometrium enhances diffusely. The ovaries are prominent and cystic. OSSEOUS STRUCTURES: Unremarkable. IMPRESSION: 1. IVC occlusion with numerous venous collaterals. 2. Inhomogeneous hepatogram. Question Budd-Chiari physiology. 3. Large bulky thrombus at the cavoatrial junction. The thrombus extends into the right atrium. 4. Cortical atrophy of the left kidney. 5. Enlarged uterus with inhomogeneous enhancement of the myometrium. Question significance.
[2017-08-16 00:23] VITALS: BP 154/99
== END 2017-08-16 00:35 | disposition short-term general hospital (02) ==
LOC: ERH 18:16
PROVIDERS: Emergency Medicine
DX: I21.9 Acute myocardial infarction, unspecified (principal)
CPT/HCPCS: 74177; 81001; 93005; 93010; 96372; 96374; J1644

== ENCOUNTER 2018-03-14 10:39 | Emergency (ER) | payer OTHER ==
[~2018-03-14] VITALS: Ht 160 cm; Wt 89.8 kg
[~2018-03-14 10:39] MED LIST changes: +ATORVASTATIN CA40 M1 PO; +FERROUS SU300 MG/51 PO; +PANTOPRAZOLE SO20 M1 PO; +PRADAXA150 M2 PO
[2018-03-14 10:44] VITALS: BP 143/97
--- NOTE | 2018-03-14 11:21 | ED EYE COMPLAINT ---
History of Present Illness General Chief Complaint: Eye Problems Stated Complaint: R EYE PAIN Source: patient, family Exam Limitations: no limitations Vital Signs & Intake/Output Vital Signs & Intake/Output Vital Signs Date Time Temp Pulse Resp B/P B/P Pulse O2 O2 Flow FiO2 Mean Ox Delivery Rate 03/14 1044 97.2 100 20 143/97 98 Room Air Allergies Coded Allergies: adhesive (Mild, RASH 12/18/16) latex (UNKNOWN 12/18/16) Reconcile Medications Albuterol Sulfate (Proair Hfa) 90 MCG HFA.AER.AD 2 PUF INH PRN ASTHMA ( Reported) Aspirin (Aspirin*) 81 MG TAB.CHEW 81 MG PO DAILY HEART HEALTH Atorvastatin Calcium 40 MG TABLET 1 TAB PO DAILY CHOLESTEROL (Reported) Brexpiprazole (Rexulti) 1 MG TABLET 1 TAB PO DAILY DEPRESSION (Reported) Cetirizine HCl 10 MG TABLET 1 TAB PO QHS ASTHMA (Reported) Cyclobenzaprine HCl 10 MG TABLET 1 TAB PO TID PRN MUSCLE SPASMS (Reported) Dabigatran Etexilate Mesylat (Pradaxa) 150 MG CAPSULE 1 CAP PO BID BLOOD THINNER (Reported) Duloxetine HCl 30 MG CAPSULE.DR 90 MG PO DAILY MENTAL HEALTH (Reported) Ferrous Sulfate 300 MG (60 MG IRON)/5 ML LIQUID 5 ML PO DAILY IRON, VITAMIN ( Reported) Furosemide (Lasix) 40 MG TABLET 1 TAB PO BID DIURETIC (Reported) Insulin Aspart (Novolog) 100 UNIT/ML VIAL 0 UNITS SC TIDAC Diabetes <80 none 80-150 4u 151-200 6u 201-250 7u 251-300 8u 301-350 9u 351-400 10u >400 10u call MD Insulin Detemir (Levemir Flextouch) 100 UNIT/ML (3 ML) INSULN.PEN 32 UNITS SC BID DM (Reported) Lisinopril 5 MG TABLET 1 TAB PO DAILY HTN (Reported) Mometasone Furoate (Nasonex) 50 MCG SPRAY.PUMP 1 SPRAY NASB DAILY ASTHMA ( Reported) Montelukast Sodium 10 MG TABLET 1 TAB PO QPM ASTHMA (Reported) Pantoprazole Sodium 20 MG TABLET.DR 1 TAB PO DAILY GI (Reported) Triage Note: PT TO ED C/O RIGHT EYE PAIN SINCE THIS AM. Triage Nurses Notes Reviewed? yes Onset: Gradual Duration: day(s): Timing: recent history Injury Environment: home Severity: moderate : No Patient currently breastfeeds: No HPI: 38yo female with PMH of HTN, DM, SLE, Factor V Leiden, recurrent DVT/PE c/o of sharp right eye pain. Pt reports that last night she had an acute onset of right eye pain. She was sitting on the couch when the pain came on. She woke up this morning with the peristant pain in her eye, blurry and double vision, redness and photophobia. Pt notes that this is pain unlike anything she has had before. Denies any headaches, hearing changes, fevers, chills, congestion, pain in her mouth. Denies any trauma to the area. Pt reports that she a few months ago, her PCP had an incidental finding of retinal hemorrhages and she is being followed up by a Ophthalmogist in March, at that time patient had no occular symptoms. (Pattie BADILLO,Misti Whyte) Past History Travel History Traveled to [place] past 21 day No Medical History Any Pertinent Medical History? see below for history Neurological: migraine EENT: allergies, sinusitis Cardiovascular: hypertension, hyperlipidemia Respiratory: asthma, pulmonary embolism (recurrent. on coumadin) Gastrointestinal: s/p partial pancreatectomy Hepatic: NONE Renal: nephrolithiasis Musculoskeletal: costochondritis Psychiatric: depression Endocrine: diabetes Blood Disorders: anemia Cancer(s): NONE PRACTICE PROFESSIONAL/Reproductive: NONE Other Medical Hx: Lupus anticoagulant and antiphospholipid antibody syndrome Sepsis diabetes, recurrent pulmonary embolus S/P thrombectomy 2008 and IVF filter 2015 with last admission PE February 2016, antiphospholipid antibody syndrome/lupus anticoagulants (on lovenox 150 mg subcutaneous daily), asthma on home oxygen 2 L, anemia, hypertension, hyperlipidemia, chronic back pain , 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 History of MRSA: No History of VRE: No History of CDIFF: No Tetanus Vaccine: 04/23/14 Surgical History Surgical History: cholecystectomy, , tubal ligation history of massive PE with clot removal excision of a pancreatic tumor splenectomy partial pancreatectomy for benign tumor TUMOR REMOVAL FROM PANCREAS Psychosocial History Who do you live with Family Services at Home None What is your primary language Greenlandic Tobacco Use: Quit >30 days ago ETOH Use: denies use Illicit Drug Use: denies illicit drug use Family History Family History, If Any: MOTHER (hypertension, diabetes mellitus). FATHER (hypertension, diabetes mellitus). Hx Contributory? No (Misti Goss) Review of Systems Review of Systems Constitutional: Reports: no symptoms. Eyes: Reports: see HPI, blurred vision, pain, photophobia. Ear: Reports: no symptoms. Nose: Reports: no symptoms. Mouth: Reports: no symptoms. Throat: Reports: no symptoms. Respiratory: Reports: no symptoms. Cardiovascular: Reports: no symptoms. GI: Reports: no symptoms. Genitourinary: Reports: no symptoms. Musculoskeletal: Reports: no symptoms. Skin: Reports: no symptoms. Neurological/Psychological: Reports: no symptoms. Hematologic/Endocrine: Reports: no symptoms. Immunologic/Allergic: Reports: no symptoms. All Other Systems: Reviewed and Negative (Misti Goss) Physical Exam General Appearance: well developed/nourished, alert, awake, anxious Left (mm Hg): 18 Right (mm Hg): 21 General Inspection: normal inspection Eyelid: normal inspection Conjunctiva/Sclera: normal inspection Cornea: normal inspection EOM: intact Pupil: normal accommodation, normal pupil, PERRL Anterior Chamber: normal inspection General Inspection: normal inspection, orbits are nontender Eyelid: normal inspection Conjunctiva/Sclera: injected Cornea: normal inspection, examined w/fluorescein, no abrasion or foreign body detected EOM: intact (painful) Pupil: normal accommodation, normal pupil, PERRL Anterior Chamber: normal inspection Posterior Segments: unable to examine Physical Exam Head: atraumatic Nose: normal inspection Mouth/Throat: normal mouth inspection Neck: normal inspection, supple Cardiovascular/Respiratory: normal breath sounds, regular rate/rhythm Neurologic/Psych: awake, alert, oriented x 3, normal gait, normal mood/affect Skin: intact, normal color, warm/dry (Misti Goss) Progress Differential Diagnosis: corneal abrasion, corneal foreign body, conjunctivitis, glaucoma, retinal art./v. occlusion, uveitis, retinal hemorrhage Plan of Care: Patient's visual acuity is diminished right eye, the patient does not have for distance glasses with her so exam is limited. Patient reports pain and has scleral injection. IOP is stable OU, given this finding low suspicion for acute angle closure glaucoma. Symptoms may be consistent with uveitis given the patient's medical history and clinical presentation. Encouraged the patient to call her eye doctor and be seen today. Patient called her eye doctor while here in the emergency department and made an appointment for 445 today. She will follow up with eye doctor for further eye exam treatment. Patient agrees with the plan of care. (Pattie BADILLO,Misti Whyte) Departure Departure Disposition: HOME OR SELF CARE Condition: Stable Clinical Impression Primary Impression: Blurry vision Secondary Impressions: Eye pain Referrals: Seda WALLER,Jennifer Trevizo (PCP/Family) Additional Instructions: Follow-up with your eye doctor today as scheduled. Return if worsening symptoms or concerns. Please note that there might be incidental findings in your evaluation that are unrelated to the current emergency department visit. Please notify your primary care doctor about this emergency department visit in order to obtain and review all of the testing performed so that these incidental findings can be monitored as needed. If you had an x-ray performed, please understand that some fractures may not be seen on the initial set of x-rays. If your symptoms persist you might need a repeat set of x-rays to check for such a fracture. If you had a laceration evaluated, please understand that foreign bodies such as glass or wood may not be visible to the naked eye or on plain x-rays. If the wound becomes red, swollen, increasingly more painful or if there is any drainage from the wound, please have it reevaluated by a physician for the possibility of a retained foreign body. If you're unable to follow up as outlined in the discharge instructions please return to the emergency department. Thank you for choosing the [facility] Emergency Department for your care. It was a pleasure to serve you today. Departure Forms: Customer Survey General Discharge Information (Misti Goss) PA/ELEMENTARY [employer] SOCIAL WORKER Co-Sign Statement Statement: ED Attending supervision documentation- [] I saw and evaluated the patient. I have also reviewed all the pertinent lab results and diagnostic results. I agree with the findings and the plan of care as documented in the PA's/ELEMENT[employer] SOCIAL WORKER's documentation. [X] I have reviewed the ED Record and agree with the PA's/ELEMENTARY [employer]CHO[employer] SOCIAL WORKER's documentation. [] Additions or exceptions (if any) to the PAs/ELEMENTARY SCHOOL SOCIAL WORKER's note and plan are summarized below: [] (Tanya WALLER,Lv Sethi
== END 2018-03-14 12:17 ==
LOC: ERH 10:39
DX: H53.8 Other visual disturbances (principal)